=== PATIENT | female | born 2000 | race Caucasian/White ===

== ENCOUNTER 2023-12-05 20:19 | Outpatient (REF) | payer OTHER, SELFPAY ==
[2023-12-11 13:13] LABS: Age Gdln ACOG Testing Note (.); IGP, rfx Aptima HPV ASCU Note (.)
== END 2023-12-05 20:20 | disposition home or self-care (01) ==
LOC: LAB 20:19
PROVIDERS: PCP Physician Assistant; Visit Provider Physician Assistant
DX: Z01.419 Encounter for gynecological examination (general) (routine) without abnormal findings (principal)
CPT/HCPCS: 88175

== ENCOUNTER 2024-04-02 13:31 | Outpatient (OUT) | payer OTHER, SELFPAY ==
--- NOTE | 2024-04-02 13:33 | US_ITS ---
[address] [address] Patient Name: CURTIS MOREIRA MRN: [id number] date: 2000 Sex: F Assigned Patient Location: [facility] Current Patient Location: [facility] Accession/Order Number: [id number] Exam Date: 04/02/2024 13:35 Report Date: 04/02/2024 14:53 At the request of: CLAUDIO BROWN Procedure: US OB transvaginal EXAMINATION: US OB transvaginal HISTORY: MISSED MENSES COMPARISON: No relevant comparison available. FINDINGS: Transvaginal images Shankar intrauterine gestation Gestational sac: 3.78 cm, 9 weeks 0 days CRL: 2.60 cm, 9 weeks 3 days Yolk sac: 4.3 mm Heart rate: 170 beats minute Cervix: Closed, 4.6 cm The uterus is normal, anteverted, anteflexed The right ovary is not visualized The left ovary is normal Clinical age: 9 weeks 2 days Clinical JOSE ANGEL: 11/03/2024 Ultrasound age: 9 weeks 3 days Ultrasound JOSE ANGEL: 11/02/2024 US/US OB transvaginal IMPRESSION: Viable shankar intrauterine gestation measuring 9 weeks 3 days Electronically authenticated by: SYDNEE OBREGON Date: 04/02/2024 14:53
== END 2024-04-02 13:32 | disposition home or self-care (01) ==
LOC: NOMS 13:31
PROVIDERS: PCP Internal Medicine; Visit Provider Obstetrics & Gynecology
DX: Z34.91 Encounter for supervision of normal pregnancy, unspecified, first trimester (principal); Z3A.09 9 weeks gestation of pregnancy; N92.6 Irregular menstruation, unspecified
CPT/HCPCS: 76817

== ENCOUNTER 2024-04-07 15:54 | Outpatient (OUT) | payer OTHER, SELFPAY ==
--- OUTSIDE RECORDS SUMMARY | 2024-04-07 15:58 | XMS_ITS | CCD ---
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 Name Role Phone PHYSICIAN, DEFAULT Unavailable Unavailable PHYSICIAN, DEFAULT Unavailable Unavailable EBRAHEIM, ORION Unavailable Unavailable EBRAHEIM, ORION Unavailable Unavailable CELINA, ADAN Unavailable Unavailable CELINA, ADAN Unavailable Unavailable SKIE, JEOVANNY Unavailable Unavailable SKIE, JEOVANNY Unavailable Unavailable CELINA, ADAN Unavailable Unavailable CELINA, ADAN Unavailable Unavailable Unavailable Primary Care Provider Unavailabl e PROVIDER, UNKNOWN Attending Unavailable PROVIDER, UNKNOWN Admitting Unavailable PATIENT, SELF Referring Unavailable JORGITO, DR SNYDER Attending Unavailable JORGITO, DR SNYDER Admitting Unavailable JORGITO, DR SNYDER Consulting Unavailable FAWWAD, SELBY H Primary Care Unavailable JORGITO, DR SNYDER Attending Unavailable FAWWAD, [facility] Primary Care Unavailable JORGITO, DR SNYDER Admitting Unavailable JORGITO, DR SNYDER Admitting Unavailable FAWWAD, SELBY H Primary Care Unavailable JORGITO, DR SNYDER Consulting Unavailable JORGITO, DR SNYDER Attending Unavailable JORGITO, DR SNYDER Admitting Unavailable FAWAZD, [facility] Primary Care Unavailable DRESDEN, DR SYDNEE Stewart Consulting Unavailable JORGITO, DR SNYDER Attending Unavailable JORGITO, DR SNYDER Consulting Unavailable JORGITO, DR SNYDER Attending Unavailable JORGITO, DR SNYDER Admitting Unavailable JORGITO, DR SNYDER Consulting Unavailable JORGITO, DR SNYDER Primary Care Unavailable JORGITO, DR SNYDER Attending Unavailable JORGITO, DR SNYDER Admitting Unavailable FAWWAD, SELBY H Primary Care Unavailable DRESDEN, DR SYDNEE Stewart Consulting Unavailable JORGITO, DR SNYDER Consulting Unavailable FAWWAD, [facility] Primary Care Unavailable OJRGITO, DR SNYDER Consulting Unavailable JORGITO, DR SNYDER Attending Unavailable JORGITO, DR SNYDER Admitting Unavailable JORGITO, DR SNYDER Attending Unavailable JORGITO, DR SNYDER Admitting [facility]available [facility] Primary Care Unavailable JORGITO, DR SNYDER Consulting Unavailable JORGITO, DR SNYDER Attending Unavailable ANNAKILLIAN, [facility] Primary Care Unavailable JORGITO, DR SNYDER Admitting Unavailable JORGITO, DR SNYDER Consulting Unavailable ZIEBER, DR ANA ROSA Bhatia Consulting Unavailable JORGITO, DR SNYDER Attending Unavailable JORGITO, DR SNYDER Admitting Unavailable FAWAZD, [facility] Primary Care Unavailable JORGITO, DR SNYDER Consulting Unavailable GEMSOFIA WARD Consulting Unavailable JORGITO, DR SNYDER Procedure Practitioner Unavailab CHANDNI Rogers Attending Unavailable CHANDNI JORDAN Admitting Unavailable FAWWAD, SELBY H Primary Care Unavailable CHANDNI JORDAN Consulting Unavailable HAHN, CHRIS Attending Unavailable ROMI MATTHEWS Referring Unavailable HAHN, CHRIS Admitting Unavailable MOSNELIA, MAITHAM Consulting Unavailable DAO MONTANA Consulting Unavailable MAGED FERNANDEZ Consulting Unavailable NO PCP, NO PCP Primary Care Unavailable KEM GHOTRA Attending Unavailable NO PCP, NO PCP Primary Care Unavailable JUN MEDINA Attending Unavailable NO PCP, NO PCP Primary Care Unavailable JUAN ZUNIGA Attending Unavailable LORETO CARNEY Attending Unavailable Hannah SEE, [facility] Primary Care Provider [phone] Loreto Gee Unavailable Medications Current Medications Medication Drug Class(es) Dates Sig (Normalized) Sig (Original) MV & Min w/FA-DHA ( Gummies) 0.18-25 MG chewable tablet (1 source) Start: 04-02-2024 End: 04-02-2025 MV & Min w/FA-DHA ( Gummies) 0.18-25 MG chewable tablet Indications: Missed menses , , unspecified gestational age , Encounter for supervision of normal first in first trimester Chew 1 tablet Daily 30 tablet 04/02/2024 04/02/2025 Active Completed/Discontinued Medications Medication Drug Class(es) Dates Sig (Normalized) Sig (Original) Ethinyl Estradiol / Ferrous fumarate / Norethindrone (1 source) Estrogen Start: 11-22-2022 End: 04-02-2024 norethindrone-ethin yl estradiol (05/11) 1-20 MG-MCG tablet Indications: control counseling Take 1 tablet by mouth in the morning. 28 tablet 11 11/22/2022 04/02/2024 Discontinued (Other) Problems Active Problems Problem Classification Problem Date Documented Date Episodic/Chronic Biliary tract disease (3 sources) Calculus of bile duct without cholangitis or cholecystitis without obstruction; Translations: [Calculus of gallbladder and bile duct without cholecystitis without obstruction] Onset: 08-05-2022 Episodic Fever of unknown origin (1 source) Fever Onset: 11-10-2023 Episodic Fracture of upper limb (8 sources) Nondisplaced fracture of head of left radius, subsequent encounter for closed fracture with routine healing; Translations: [Displaced fracture of head of left radius, subsequent encounter for closed fracture with routine healing] Onset: 08-19-2017 Episodic Menstrual disorders (5 sources) Irregular menstruation, unspecified; Translations: [Missed period] Onset: 09-07-2021 Chronic OB-related trauma to perineum and vulva (1 source) First degree perineal laceration during delivery; Translations: [FIRST DEG PERINEAL LAC DUR DELIV] Onset: 04-06-2022 Episodic Other complications of ; puerperium affecting management of mother (1 source) Obesity complicating childbirth; Translations: [OBESITY COMPLICATING CHILDBIRTH] Onset: 04-06-2022 Chronic Other complications of (2 sources) Obesity complicating , third trimester; Translations: [OBESITY COMP THIRD TRI] Onset: 03-22-2022 Chronic Other complications of (4 sources) Maternal care for excessive growth, third trimester, not applicable or unspecified; Translations: [MAT CARE EXCSS FTL GRTH 3RD TRI UNS] Onset: 02-09-2022 Episodic Other non-traumatic joint disorders (1 source) Loose body in left elbow; Translations: [LOOSE BODY IN LEFT ELBOW] Onset: 08-19-2017 Chronic Other non-traumatic joint disorders (2 sources) Effusion, left elbow; Translations: [Pain in left wrist] Onset: 08-19-2017 Episodic Other nutritional; endocrine; and metabolic disorders (1 source) Obesity, unspecified; Translations: [OBESITY UNSPECIFIED] Onset: 04-06-2022 Chronic Other and delivery including normal (9 sources) Encounter for routine follow-up; Translations: [Single live ] Onset: 09-13-2021 Episodic Other screening for suspected conditions (not mental disorders or infectious disease) (17 sources) Encounter for screening for Streptococcus B; Translations: [Encounter for screening for diabetes mellitus] Onset: 09-07-2021 Episodic Other upper respiratory infections (2 sources) Acute upper respiratory infection, unspecified; Translations: [Streptococcal pharyngitis] Onset: 08-03-2023 Episodic Residual codes; unclassified (1 source) 39 weeks gestation of ; Translations: [39 WEEKS GESTATION OF ] Onset: 04-06-2022 Episodic Residual codes; unclassified (1 source) 33 weeks gestation of ; Translations: [33 WEEKS GESTATION OF ] Onset: 02-14-2022 Episodic Unclassified (2 sources) Unknown / UNK(Unknown) Onset: 08-19-2017 Unclassified (1 source) CONTACT W/AND (SUSP) EXPOS COVID-19; Translations: [CONTACT W/AND (SUSP) EXPOS COVID-19] Onset: 04-06-2022 Unclassified (1 source) Generalized Body Aches Onset: 11-10-2023 Unclassified (1 source) Cold Like Symptoms Onset: 08-01-2023 Unclassified (1 source) Fever, Ear Ache, Sore Throat Onset: 08-01-2023 Past or Other Problems Problem Classification Problem Date Documented Date Episodic/Chronic Abdominal pain (4 sources) Unspecified abdominal pain; Translations: [UNSPECIFIED ABDOMINAL PAIN] Onset: 07-24-2021 Episodic Immunizations and screening for infectious disease (2 sources) Encounter for screening for infections with a predominantly sexual mode of transmission; Translations: [Contact with and (suspected) exposure to infections with a predominantly sexual mode of transmission] Onset: 09-13-2021 Episodic Other complications of (1 source) Other specified related conditions, unspecified trimester; Translations: [OTH SPEC PREG RELATED COND UNS TRI] Onset: 08-09-2021 Episodic Other female genital disorders (4 sources) Other specified noninflammatory disorders of vagina; Translations: [OTH SPEC NONINFLAMMATORY D/O VAGINA] Onset: 10-31-2021 Episodic Other upper respiratory disease (1 source) Pain in throat Onset: 08-03-2023 Episodic Residual codes; unclassified (1 source) Weeks of gestation of not specified; Translations: [WEEKS GESTATION NOT SPEC] Onset: 08-09-2021 Episodic Viral infection (1 source) Viral infection, unspecified; Translations: [Viral infection, unspecified] Onset: 08-01-2023 Episodic Results Test Name Value Interpretation Reference Range Facility HCG ( test) Ql (U)o n 04-03-2024 Interpretation and review of laboratory results Abnormal [facility] Preg Test, Ur Positive Negative [facility]inal[facility] macro (dipstick) panel (U)on 04-03-2024 Bilirubin, UA Negative Negative - 4(70) +++ mg/dL [facility] Blood, UA Negative Negative - 50 Nishant/mcL [facility] Clarity, UA Clear [facility] re Color, UA Yellow [facility] e Glucose, UA Negative Negative - 1999(110) ++++ mg/dL [facility] Interpretation and review of laboratory results Normal [facility] Ketones, UA Negative Negative - 160(16) ++++ mg/dL [facility] Leukocytes, UA Negative Negative - 500+++ Michael/mcL [facility] Nitrite, UA Negative Negative - Positive [facility] pH, UA 6.5 5 - 9 [facility] e Protein, UA Negative Negative - 1999(20) ++++ mg/dL [facility] Spec Grav, UA 1.02 1 - 1.03 [facility] Urobilinogen, UA 1.0 0.2 - 12 mg/dL [facility] SARS/FLU A+B/RSV by NAAT/Mol ecularon 11-11-2023 SARS/FLU A+B/RSV by NAAT/Molecular FLU A PCR Negative (qualifier value) FLU B PCR Negative (qualifier value) RSV by PCR Negative (qualifier value) SARS CoV 2 Not detected (qualifier value) NOTE The Xpert Xpress SARS-CoV-2/Flu/RSV Plus test is a rapid, multiplexed real-time RT-PCR test intended for the simultaneous qualitative detection and differentiation of SARS-CoV-2, influenza A, influenza B and respiratory syncytial virus (RSV) viral RNA from individuals suspected of respiratory viral infection consistent with COVID-19 by their healthcare provider. This test has not been validated in asymptomatic patients. The Xpert Xpress SARS-CoV-2 test is intended for use by qualified and trained operators who are performing tests using either GeneXpert DX or GeneXpert Quantifind systems and is limited to laboratories that meet the CLIA requirements to perform high and moderate complexity tests. The Xpert Xpress SARS-CoV-2/Flu/RSV Plus is only for use under the Food and Drug Administration's Emergency Use Authorization. Results are for the simultaneous detection and differentiation of SARS-CoV-2, influenza A, influenza B and RSV nucleic acids in clinical specimens. SARS-CoV-2, influenza A, influenza B and RSV RNA identified by this test are generally detectable in upper respiratory samples during the acute phase of infection. Positive results are indicative of the presence of the identified virus, but do not rule out bacterial infection or co-infection with other pathogens not detected by this test. Clinical correlation with patient history and other diagnostic information is necessary to determine patient infection status. The agent detected may not be the definite cause of disease. Negative results do not preclude SARS-CoV-2, influenza A, influenza B and RSV infection and should not be used as the sole basis for treatment or other patient management decisions. Negative results must be combined with clinical observations, patient history and epidemiological information. An Invalid result may occur with specimen-associated inhibition unable to be resolved with specimen repeat. Fact Sheet for Healthcare Providers: https://www.fda.gov/m edia/934317/download Fact Sheet for Patients: https://www.fda.gov/m edia/661070/download Normal [facility] Comment on above: Performed By: #### C OVFLR #### [facility] ([id number]) [address] [place] [address], [place] [address] STREP PCR THROATon S. pyogenes DNA CLIVE+probe Nom (Unsp spec) STREP PCR THROAT Negative (qualifier value) Streptococcus Group A NOT detected by nucleic acid amplification. Normal [facility] Comment on above: Performed By: #### 4 [id number] #### [facility] ([id number]) [address], [address] [place] [address] RAPID STREP SCR NURSINGon S. pyogenes Ag EIA Ql (Throat) Positive Abnormal NEG [facility] Comment on above: Performed By: #### 6 [id number] #### [facility] ([id number]) [address] [facility] [address] [facility] [place] [address] SARS/FLU A+B/RSV by NAAT/Mol ecularon 08-01-2023 SARS/FLU A+B/RSV by NAAT/Molecular FLU A PCR Negative (qualifier value) FLU B PCR Negative (qualifier value) RSV by PCR Negative (qualifier value) SARS CoV 2 Not detected (qualifier value) NOTE The Xpert Xpress SARS-CoV-2/Flu/RSV Plus test is a rapid, multiplexed real-time RT-PCR test intended for the simultaneous qualitative detection and differentiation of SARS-CoV-2, influenza A, influenza B and respiratory syncytial virus (RSV) viral RNA from individuals suspected of respiratory viral infection consistent with COVID-19 by their healthcare provider. This test has not been validated in asymptomatic patients. The Xpert Xpress SARS-CoV-2 test is intended for use by qualified and trained operators who are performing tests using either [employer] DX or [employer] systems and is limited to laboratories that meet the CLIA requirements to perform high and moderate complexity tests. The Xpert Xpress SARS-CoV-2/Flu/RSV Plus is only for use under the Food and Drug Administration's Emergency Use Authorization. Results are for the simultaneous detection and differentiation of SARS-CoV-2, influenza A, influenza B and RSV nucleic acids in clinical specimens. SARS-CoV-2, influenza A, influenza B and RSV RNA identified by this test are generally detectable in upper respiratory samples during the acute phase of infection. Positive results are indicative of the presence of the identified virus, but do not rule out bacterial infection or co-infection with other pathogens not detected by this test. Clinical correlation with patient history and other diagnostic information is necessary to determine patient infection status. The agent detected may not be the definite cause of disease. Negative results do not preclude SARS-CoV-2, influenza A, influenza B and RSV infection and should not be used as the sole basis for treatment or other patient management decisions. Negative results must be combined with clinical observations, patient history and epidemiological information. An Invalid result may occur with specimen-associated inhibition unable to be resolved with specimen repeat. Fact Sheet for Healthcare Providers: https://www.fda.gov/m edia/571385/download Fact Sheet for Patients: https://www.fda.gov/m edia/033537/download Normal [facility] Comment on above: Performed By: #### C OVFLR #### [facility] ([id number]) [address] [facility] [address] [facility], [place] [address] Basic Metab w/rfx MGon 08-08 Anion gap [Moles/Vol] 11 mmol/L Normal 9-17 [facility] Comment on above: Performed By: #### L IP, BMPX, LIVP, CBC #### [facility] [email or web address] [address] [place] [phone] Sand Filler: Flako Braun MD Calcium [Mass/Vol] 9.0 mg/dL Normal 8.6-10.4 [facility] Comment on above: Performed By: #### L IP, BMPX, LIVP, CBC #### [facility] [email or web address] [address] [place] [phone] Sand Filler: Flako Braun MD Chloride [Moles/Vol] 104 mmol/L Normal 98-107 [facility] Comment on above: Performed By: #### L IP, BMPX, LIVP, CBC #### [facility] [address] [place] [address] Sand Filler: Flako Braun MD CO2 [Moles/Vol] 22 mmol/L Normal 20-31 [facility] Comment on above: Performed By: #### L IP, BMPX, LIVP, CBC #### [facility] [address] [place] [address] Sand Filler: Flako Braun MD Creatinine [Mass/Vol] 0.56 mg/dL Normal 0.50-0.90 [facility] Comment on above: Performed By: #### L IP, BMPX, LIVP, CBC #### [facility] [address] [place] [address] Sand Filler: Flako Braun MD GFR/1.73 sq M.predicted among non-blacks MDRD (S/P/Bld) [Vol rate/Area] mL/min/{1.73_m2} Normal >60 [facility] Comment on above: Result Comment: These results are not intended for use in patients <18 years of age. eGFR results are calculated without a race factor using the 2020 CKD-EPI equation. Careful clinical correlation is recommended, particularly when comparing to results calculated using previous equations. The CKD-EPI equation is less accurate in patients with extremes of muscle mass, extra-renal metabolism of creatine, excessive creatine ingestion, or following therapy that affects renal tubular secretion. Performed By: #### L IP, BMPX, LIVP, CBC #### [facility] [address] [place] [address] [phone] Sand Filler: Flako Braun MD Glucose [Mass/Vol] 81 mg/dL Normal 70-99 [facility] Comment on above: Performed By: #### L IP, BMPX, LIVP, CBC #### [facility] [address] [place] [address] Sand Filler: Flako Braun MD Potassium [Moles/Vol] 4.0 mmol/L Normal 3.7-5.3 [facility] Comment on above: Performed By: #### L IP, BMPX, LIVP, CBC #### [facility] [address] [place] [address] Sand Filler: Flako Braun MD Sodium [Moles/Vol] 137 mmol/L Normal 135-144 [facility] Comment on above: Performed By: #### L IP, BMPX, LIVP, CBC #### [facility] [address] [place] [address] Sand Filler: Flako Braun MD Urea nitrogen [Mass/Vol] 7 mg/dL Normal 6-20 [facility] Comment on above: Performed By: #### L IP, BMPX, LIVP, CBC #### [facility] [address] [place] [address] Sand Filler: Flako Braun MD CBCon 08-08-2022 Erythrocyte distribution width (RBC) [Ratio] 16.2 % High 11.8-14.4 [facility] Comment on above: Performed By: #### L IP, BMPX, LIVP, CBC #### [facility] [email or web address] [address] [place] [address] Sand Filler: Flako Braun MD Hematocrit (Bld) [Volume fraction] 34.4 % Low 36.3-47.1 [facility] Comment on above: Performed By: #### L IP, BMPX, LIVP, CBC #### [facility] [email or web address] [address] [place] [address] Sand Filler: Flako Braun MD Hemoglobin (Bld) [Mass/Vol] 10.6 g/dL Low 11.9-15.1 [facility] Comment on above: Performed By: #### L IP, BMPX, LIVP, CBC #### [facility] [email or web address] [address] [place] [address] Sand Filler: Flako Braun MD MCH (RBC) [Entitic mass] 26.2 pg Normal 25.2-33.5 [facility] Comment on above: Performed By: #### L IP, BMPX, LIVP, CBC #### [facility] [email or web address] [address] [place] [address] Sand Filler: Flako Braun MD MCHC (RBC) [Mass/Vol] 30.8 g/dL Normal 28.4-34.8 [facility] Comment on above: Performed By: #### L IP, BMPX, LIVP, CBC #### [facility] [email or web address] [address] [place] [address] Sand Filler: Flako Braun MD MCV (RBC) [Entitic vol] 85.1 fL Normal 82.6-102.9 [facility] Comment on above: Performed By: #### L IP, BMPX, LIVP, CBC #### [address] [address] Sand Filler: Flako Braun MD NRBC Automated 0.0 per 100 WBC Normal 0.0 [facility] Comment on above: Performed By: #### L IP, BMPX, LIVP, CBC #### [address] [address] Sand Filler: Flako Braun MD Platelet mean volume (Bld) [Entitic vol] 11.4 fL Normal 8.1-13.5 [facility] Comment on above: Performed By: #### L IP, BMPX, LIVP, CBC #### [address] [address] Sand Filler: Flako Braun MD Platelets (Bld) [#/Vol] 218 10*3/uL Normal 138-453 [facility] Comment on above: Performed By: #### L IP, BMPX, LIVP, CBC #### [address] [address] Sand Filler: Flako Braun MD RBC (Bld) [#/Vol] 4.04 10*6/uL Normal 3.95-5.11 [facility] Comment on above: Performed By: #### L IP, BMPX, LIVP, CBC #### [address] [address] Sand Filler: Flako Braun MD WBC (Bld) [#/Vol] 9.8 10*3/uL Normal 4.5-13.5 [facility] Comment on above: Performed By: #### L IP, BMPX, LIVP, CBC #### [address] [address] Sand Filler: Flako Braun MD Lipaseon 08-08-2022 Lipase [Catalytic activity/Vol] 20 U/L Normal 13-60 [facility] Comment on above: Performed By: #### L IP, BMPX, LIVP, CBC #### [facility] [address] [place] [address] Sand Filler: Flako Braun MD Liver Profileon 08-08-2022 Albumin [Mass/Vol] 3.5 g/dL Normal 3.5-5.2 [facility] Comment on above: Performed By: #### L IP, BMPX, LIVP, CBC #### [facility] [email or web address] [address] [place] [address] Sand Filler: Flako Braun MD Albumin/Glob Ratio 1.4 Normal 1.0-2.5 [facility] Comment on above: Performed By: #### L IP, BMPX, LIVP, CBC #### [facility] [address] [place] [address] Sand Filler: Flako Braun MD Alkaline Phos 282 U/L High 35-104 [facility] Comment on above: Performed By: #### L IP, BMPX, LIVP, CBC #### [facility] [email or web address] [address] [place] [address] Sand Filler: Flako Braun MD ALT [Catalytic activity/Vol] 291 U/L High 5-33 [facility] Comment on above: Performed By: #### L IP, BMPX, LIVP, CBC #### [facility] [email or web address] [address] [place] [phone] Sand Filler: Flako Braun MD AST [Catalytic activity/Vol] 120 U/L High <32 [facility] Comment on above: Performed By: #### L IP, BMPX, LIVP, CBC #### [facility] [email or web address] [address] [place] [address] Sand Filler: Flako Braun MD Bilirubin [Mass/Vol] 1.4 mg/dL High 0.3-1.2 [facility] Comment on above: Performed By: #### L IP, BMPX, LIVP, CBC #### [facility] [address] [place] [address] [phone] Sand Filler: Flako Braun MD Bilirubin, Indirect 0.6 mg/dL Normal 0.0-1.0 [facility] Comment on above: Performed By: #### L IP, BMPX, LIVP, CBC #### [facility] [address] [place] [address] Sand Filler: Flako Braun MD Bilirubin.indirect [Mass/Vol] 0.8 mg/dL High <0.3 [facility] Comment on above: Performed By: #### L IP, BMPX, LIVP, CBC #### [facility] [address] [place] [address] Sand Filler: Flako Braun MD Protein [Mass/Vol] 6.0 g/dL Low 6.4-8.3 [facility] Comment on above: Performed By: #### L IP, BMPX, LIVP, CBC #### [facility] [address] [place] [address] Sand Filler: Flako Braun MD Basic Metab w/rfx MGon 08-07 Creatinine [Mass/Vol] 0.42 mg/dL Low 0.50-0.90 [facility] Comment on above: Result Comment: ICTE VERA SPECIMEN Performed By: #### L IP, BMPX, LIVP, CBC #### [facility] [address] [place] [address] [phone] Sand Filler: Flako Braun MD GFR/1.73 sq M.predicted among non-blacks MDRD (S/P/Bld) [Vol rate/Area] mL/min/{1.73_m2} Normal >60 [facility] Comment on above: Result Comment: These results are not intended for use in patients <18 years of age. eGFR results are calculated without a race factor using the 2020 CKD-EPI equation. Careful clinical correlation is recommended, particularly when comparing to results calculated using previous equations. The CKD-EPI equation is less accurate in patients with extremes of muscle mass, extra-renal metabolism of creatine, excessive creatine ingestion, or following therapy that affects renal tubular secretion. Performed By: #### L IP, BMPX, LIVP, CBC #### [facility] [email or web address] [address] [place] [address] Sand Filler: Flako Braun MD Anion gap [Moles/Vol] 11 mmol/L Normal 9-17 [facility] Comment on above: Performed By: #### L IP, BMPX, LIVP, CBC #### [facility] [email or web address] [address] [place] [address] Sand Filler: Flako Braun MD Calcium [Mass/Vol] 8.8 mg/dL Normal 8.6-10.4 [facility] Comment on above: Performed By: #### L IP, BMPX, LIVP, CBC #### [facility] [email or web address] [address] [place] [address] Sand Filler: Flako Braun MD Chloride [Moles/Vol] 102 mmol/L Normal 98-107 [facility] Comment on above: Performed By: #### L IP, BMPX, LIVP, CBC #### [facility] [email or web address] [address] [place] [address] Sand Filler: Flako Braun MD CO2 [Moles/Vol] 22 mmol/L Normal 20-31 [facility] Comment on above: Performed By: #### L IP, BMPX, LIVP, CBC #### [facility] [email or web address] [address] [place] [address] Sand Filler: Flako Braun MD Glucose [Mass/Vol] 89 mg/dL Normal 70-99 [facility] Comment on above: Performed By: #### L IP, BMPX, LIVP, CBC #### [facility] [address] [place] [address] Sand Filler: Flako Braun MD Potassium [Moles/Vol] 4.1 mmol/L Normal 3.7-5.3 [facility] Comment on above: Performed By: #### L IP, BMPX, LIVP, CBC #### [facility] [address] [place] [address] Sand Filler: Flako Braun MD Sodium [Moles/Vol] 135 mmol/L Normal 135-144 [facility] Comment on above: Performed By: #### L IP, BMPX, LIVP, CBC #### [facility] [address] [place] [address] Sand Filler: Flako Braun MD Urea nitrogen [Mass/Vol] 6 mg/dL Normal 6-20 [facility] Comment on above: Performed By: #### L IP, BMPX, LIVP, CBC #### [facility] [address] [place] [address] Sand Filler: Flako Braun MD [facility] Erythrocyte distribution width (RBC) [Ratio] 15.9 % High 11.8-14.4 [facility] Comment on above: Performed By: #### L IP, BMPX, LIVP, CBC #### [facility] [address] [place] [address] Sand Filler: Flako Braun MD Hematocrit (Bld) [Volume fraction] 36.7 % Normal 36.3-47.1 [facility] Comment on above: Performed By: #### L IP, BMPX, LIVP, CBC #### [facility] [address] [place] [address] Sand Filler: Flako Braun MD Hemoglobin (Bld) [Mass/Vol] 11.2 g/dL Low 11.9-15.1 [facility] Comment on above: Performed By: #### L IP, BMPX, LIVP, CBC #### [address] [address] Sand Filler: Flako Braun MD MCH (RBC) [Entitic mass] 25.5 pg Normal 25.2-33.5 [facility] Comment on above: Performed By: #### L IP, BMPX, LIVP, CBC #### [address] [address] Sand Filler: Flako Braun MD MCHC (RBC) [Mass/Vol] 30.5 g/dL Normal 28.4-34.8 [facility] Comment on above: Performed By: #### L IP, BMPX, LIVP, CBC #### [address] [address] Sand Filler: Flako Braun MD MCV (RBC) [Entitic vol] 83.6 fL Normal 82.6-102.9 [facility] Comment on above: Performed By: #### L IP, BMPX, LIVP, CBC #### [address] [address] Sand Filler: Flako Braun MD NRBC Automated 0.0 per 100 WBC Normal 0.0 [facility] Comment on above: Performed By: #### L IP, BMPX, LIVP, CBC #### [address] [address] Sand Filler: Flako Braun MD Platelet mean volume (Bld) [Entitic vol] 11.2 fL Normal 8.1-13.5 [facility] Comment on above: Performed By: #### L IP, BMPX, LIVP, CBC #### [address] [address] Sand Filler: Flako Braun MD Platelets (Bld) [#/Vol] 252 10*3/uL Normal 138-453 [facility] Comment on above: Performed By: #### L IP, BMPX, LIVP, CBC #### [address] [address] Sand Filler: Flako Braun MD RBC (Bld) [#/Vol] 4.39 10*6/uL Normal 3.95-5.11 [facility] Comment on above: Performed By: #### L IP, BMPX, LIVP, CBC #### [address] [address] Sand Filler: Flako Braun MD WBC (Bld) [#/Vol] 13.4 10*3/uL Normal 4.5-13.5 [facility] Comment on above: Performed By: #### L IP, BMPX, LIVP, CBC #### [address] [address] Sand Filler: Flako Braun MD FLUORO FOR SURGICAL PROCEDUR ESon 08-07-2022 FLUORO FOR SURGICAL PROCEDURES Radiology exam is complete. No Radiologist dictation. Please follow up with ordering provider. Final result Normal [facility] Lipaseon 08-07-2022 Lipase [Catalytic activity/Vol] 11 U/L Low 13-60 [facility] Comment on above: Performed By: #### L IP, BMPX, LIVP, CBC #### [address] [address] Sand Filler: Flako Braun MD Liver Profileon 08-07-2022 Albumin [Mass/Vol] 3.6 g/dL Normal 3.5-5.2 [facility] Comment on above: Performed By: #### L IP, BMPX, LIVP, CBC #### [address] [address] Sand Filler: Flako Braun MD Albumin/Glob Ratio 1.4 Normal 1.0-2.5 [facility] Comment on above: Performed By: #### L IP, BMPX, LIVP, CBC #### [facility] [address] [place] [address] Sand Filler: Flako Braun MD Alkaline Phos 307 U/L High 35-104 [facility] Comment on above: Performed By: #### L IP, BMPX, LIVP, CBC #### [facility] [address] [place] [address] Sand Filler: Flako Braun MD ALT [Catalytic activity/Vol] 360 U/L High 5-33 [facility] Comment on above: Performed By: #### L IP, BMPX, LIVP, CBC #### [facility] [address] [place] [address] Sand Filler: Flako Braun MD AST [Catalytic activity/Vol] 200 U/L High <32 [facility] Comment on above: Performed By: #### L IP, BMPX, LIVP, CBC #### [facility] [email or web address] [address] [place] [address] Sand Filler: Flako Braun MD Bilirubin [Mass/Vol] 4.2 mg/dL High 0.3-1.2 [facility] Comment on above: Performed By: #### L IP, BMPX, LIVP, CBC #### [facility] [email or web address] [address] [place] [address] Sand Filler: Falko Braun MD Bilirubin, Indirect 0.5 mg/dL Normal 0.0-1.0 [facility] Comment on above: Performed By: #### L IP, BMPX, LIVP, CBC #### [facility] [address] [place] [address] Sand Filler: Flako Braun MD Bilirubin.indirect [Mass/Vol] 3.7 mg/dL High <0.3 [facility] Comment on above: Performed By: #### L IP, BMPX, LIVP, CBC #### [facility] [address] [place] [address] Sand Filler: Flako Braun MD Protein [Mass/Vol] 6.2 g/dL Low 6.4-8.3 [facility] Comment on above: Performed By: #### L IP, BMPX, LIVP, CBC #### [facility] [address] [place] [address] Sand Filler: Flako Braun MD Basic Metab w/rfx MGon 08-06 Anion gap [Moles/Vol] 12 mmol/L Normal -17 [facility] Comment on above: Performed By: #### L IP, BMPX, HCG, SOLEDAD, LIVP, MG ####[facility] [address] [place] [address] Lab Director: Flako Braun MD Calcium [Mass/Vol] 8.7 mg/dL Normal 8.6-10.4 [facility] Comment on above: Performed By: #### L IP, BMPX, HCG, SOLEDAD, LIVP, MG ####[facility] [address] [place] [address] Lab Director: Flako Braun MD Chloride [Moles/Vol] 105 mmol/L Normal 98-107 [facility] Comment on above: Performed By: #### L IP, BMPX, HCG, SOLEDAD, LIVP, MG ####[facility] [address] [place] [address] Lab Director: Flako Braun MD CO2 [Moles/Vol] 19 mmol/L Low 20-31 [facility] Comment on above: Performed By: #### L IP, BMPX, HCG, SOLEDAD, LIVP, MG ####[facility] [address] [place] [address] Lab Director: Flako Braun MD Creatinine [Mass/Vol] 0.34 mg/dL Low 0.50-0.90 [facility] Comment on above: Result Comment: ICTE VERA SPECIMEN Performed By: #### L IP, BMPX, HCG, SOLEDAD, LIVP, MG ####[facility] [address] [place] [address] [phone] Lab Director: Flako Braun MD GFR/1.73 sq M.predicted among non-blacks MDRD (S/P/Bld) [Vol rate/Area] mL/min/{1.73_m2} Normal >60 [facility] Comment on above: Result Comment: These results are not intended for use in patients <18 years of age. eGFR results are calculated without a race factor using the 2020 CKD-EPI equation. Careful clinical correlation is recommended, particularly when comparing to results calculated using previous equations. The CKD-EPI equation is less accurate in patients with extremes of muscle mass, extra-renal metabolism of creatine, excessive creatine ingestion, or following therapy that affects renal tubular secretion. Performed By: #### L IP, BMPX, HCG, SOLEDAD, LIVP, MG ####[facility] [address] [place] [address] Lab Director: Flako Braun MD Glucose [Mass/Vol] 84 mg/dL Normal 70-99 [facility] Comment on above: Performed By: #### L IP, BMPX, HCG, SOLEDAD, LIVP, MG ####[facility] [address] [place] [address] [phone] Lab Director: Flako Braun MD Potassium [Moles/Vol] 4.4 mmol/L Normal 3.7-5.3 [facility] Comment on above: Result Comment: SPEC IMEN SLIGHTLY HEMOLYZED, RESULTS MAY BE ADVERSELY AFFECTED. Performed By: #### L IP, BMPX, HCG, SOLEDAD, LIVP, MG ####[facility] [address] [place] [address] [phone] Lab Director: Flako Braun MD Sodium [Moles/Vol] 136 mmol/L Normal 135-144 [facility] Comment on above: Performed By: #### L IP, BMPX, HCG, SOLEDAD, LIVP, MG ####[facility] [address] [place] [address] Lab Director: Flako Braun MD Urea nitrogen [Mass/Vol] 6 mg/dL Normal 6-20 [facility] Comment on above: Performed By: #### L IP, BMPX, HCG, SOLEDAD, LIVP, MG ####[facility] [address] [place] [address] Lab Director: Flako Braun MD CBCon 08-06-2022 Erythrocyte distribution width (RBC) [Ratio] 15.9 % High 11.8-14.4 [facility] Comment on above: Performed By: #### C ADELA PT, IOCAL #### [facility] [email or web address] [address] [place] [address] Sand Filler: Flako Braun MD Hematocrit (Bld) [Volume fraction] 37.3 % Normal 36.3-47.1 [facility] Comment on above: Performed By: #### C BC, PT, IOCAL #### [facility] [address] [place] [address] Sand Filler: Flako Braun MD Hemoglobin (Bld) [Mass/Vol] 10.9 g/dL Low 11.9-15.1 [facility] Comment on above: Performed By: #### C BC, PT, IOCAL #### [facility] [address] [place] [address] Sand Filler: Flako Braun MD MCH (RBC) [Entitic mass] 25.8 pg Normal 25.2-33.5 [facility] Comment on above: Performed By: #### C BC, PT, IOCAL #### [facility] [address] [place] [address] Sand Filler: Flako Braun MD MCHC (RBC) [Mass/Vol] 29.2 g/dL Normal 28.4-34.8 [facility] Comment on above: Performed By: #### C BC, PT, IOCAL #### [facility] [address] [place] [address] Sand Filler: Flako Braun MD MCV (RBC) [Entitic vol] 88.2 fL Normal 82.6-102.9 [facility] Comment on above: Performed By: #### C BC, PT, IOCAL #### [facility] [email or web address] [address] [place] [address] Sand Filler: Flako Braun MD NRBC Automated 0.0 per 100 WBC Normal 0.0 [facility] Comment on above: Performed By: #### C BC, PT, IOCAL #### [facility] [email or web address] [address] [place] [address] Sand Filler: Flako Braun MD Platelet mean volume (Bld) [Entitic vol] 11.3 fL Normal 8.1-13.5 [facility] Comment on above: Performed By: #### C BC, PT, IOCAL #### [facility] [email or web address] [address] [place] [address] Sand Filler: Flako Braun MD Platelets (Bld) [#/Vol] 233 10*3/uL Normal 138-453 [facility] Comment on above: Performed By: #### C BC, PT, IOCAL #### [facility] [email or web address] [address] [place] [address] Sand Filler: Flako Braun MD RBC (Bld) [#/Vol] 4.23 10*6/uL Normal 3.95-5.11 [facility] Comment on above: Performed By: #### C BC, PT, IOCAL #### [facility] [address] [place] [address] Sand Filler: Flako Braun MD WBC (Bld) [#/Vol] 6.7 10*3/uL Normal 4.5-13.5 [facility] Comment on above: Performed By: #### C BC, PT, IOCAL #### [facility] [address] [place] [address] Sand Filler: Flako Braun MD Calcium, Ionicon 08-06-2022 Calcium [Moles/Vol] 1.20 mmol/L Normal 1.13-1.33 [facility] Comment on above: Performed By: #### C BC, PT, IOCAL #### [facility] [address] [place] [address] Sand Filler: Flako Braun MD HCG Screen, Bloodon 08-07-19 HCG Screen, Blood Negative Normal [facility] Comment on above: Result Comment: Spec imens with hCG levels near the threshold of the test (25 mIU/mL) may give a negative or indeterminate result. In such cases, another test should be performed with a new specimen in 48-72 hours. If early is suspected clinically in this setting, correlation with quantitative serum b-hCG level is suggested. [facility] has confirmed the use of plasma for this test. This has not been cleared or approved by the U.S. Food and Drug Administration. The FDA has determined that such clearance is not necessary. Performed By: #### L IP, BMPX, HCG, SOLEDAD, LIVP, MG ####[facility] [address] [place] [address] Lab Director: Flako Braun MD Lipaseon 08-06-2022 Lipase [Catalytic activity/Vol] 25 U/L Normal 13-60 [facility] Comment on above: Performed By: #### L IP, BMPX, HCG, SOLEDAD, LIVP, MG ####[facility] [address] [place], [place] [phone] Lab Director: Flako Braun MD Liver Profileon 08-06-2022 Albumin [Mass/Vol] 3.5 g/dL Normal 3.5-5.2 [facility] Comment on above: Performed By: #### L IP, BMPX, HCG, SOLEDAD, LIVP, MG ####[facility] [address] [place] [address] Lab Director: Flako Braun MD Albumin/Glob Ratio 1.3 Normal 1.0-2.5 [facility] Comment on above: Performed By: #### L IP, BMPX, HCG, SOLEDAD, LIVP, MG ####[facility] [address] [place], [place] [phone] Director: Flako Braun MD Alkaline Phos 288 U/L High 35-104 [facility] Comment on above: Performed By: #### L IP, BMPX, HCG, SOLEDAD, LIVP, MG ####[facility] [address] [place], [place] [phone] Director: Flako Braun MD ALT [Catalytic activity/Vol] 476 U/L High 5-33 [facility] Comment on above: Performed By: #### L IP, BMPX, HCG, SOLEDAD, LIVP, MG ####[facility] [address] [place] [address] Lab Director: Flako Braun MD AST [Catalytic activity/Vol] 373 U/L High <32 [facility] Comment on above: Performed By: #### L IP, BMPX, HCG, SOLEDAD, LIVP, MG ####[facility] [address] [place], [place] [phone] Director: Flako Braun MD Bilirubin [Mass/Vol] 4.3 mg/dL High 0.3-1.2 [facility] Comment on above: Performed By: #### L IP, BMPX, HCG, SOLEDAD, LIVP, MG ####[facility] [address] [place], [place] [phone] Director: Flako Braun MD Bilirubin, Indirect 1.0 mg/dL Normal 0.0-1.0 [facility] Comment on above: Performed By: #### L IP, BMPX, HCG, SOLEDAD, LIVP, MG ####[facility] [address] [place], [place] [id number] Lab Director: Flako Braun MD Bilirubin.indirect [Mass/Vol] 3.3 mg/dL High <0.3 [facility] Comment on above: Performed By: #### L IP, BMPX, HCG, SOLEDAD, LIVP, MG ####[facility] [address] [place] [address] lab Director: Flako Braun MD Protein [Mass/Vol] 6.2 g/dL Low 6.4-8.3 [facility] Comment on above: Performed By: #### L IP, BMPX, HCG, SOLEDAD, LIVP, MG ####[facility] [address] [place] [address] lab Director: Flako Braun MD MRI ABDOMEN WO CONTRAST MRCP on 08-06-2022 MRI ABDOMEN WO CONTRAST MRCP EXAMINATION: MRI OF THE ABDOMEN WITHOUT CONTRAST AND MRCP 08/06/2022 10:10 am TECHNIQUE: Multiplanar multisequence MRI of the abdomen was performed without the administration of intravenous contrast. After initial T2 axial and coronal images, thick slab, thin slab and 3D coronal MRCP sequences were obtained without the administration of intravenous contrast. MIP images are provided for review. COMPARISON: 08/06/2022 ultrasound HISTORY: ORDERING SYSTEM PROVIDED HISTORY: abnormal LFT- r/o CBD stone TECHNOLOGIST PROVIDED HISTORY: abnormal LFT- r/o CBD stone What is the sedation requirement?->None Reason for Exam: abnormal LFT- r/o CBD stone FINDINGS: MRCP limited due to patient motion on acquisition series. Gallbladder: Multiple stones in the lumen of the gallbladder. There is diffuse gallbladder mucosal thickening and a small amount of pericholecystic fluid. Bile Ducts: The intrahepatic biliary ducts are normal. Extrahepatic biliary ducts are also normal with no dilation no obvious filling defects allowing for motion artifact. Pancreatic Duct: Normal. Other: Mild hepatic steatosis. IMPRESSION: 1. Cholelithiasis with mucosal thickening and pericholecystic fluid. Correlate for any potential symptoms of acute cholecystitis. 2. No biliary dilatation. 3. Hepatic steatosis. Interpreted by: Ralf Mendez IV, MD Signed by: Ralf Mendez IV, MD 08/06/22 Final result Normal [facility] Magnesiumon 08-06-2022 Magnesium [Mass/Vol] 1.8 mg/dL Normal 1.6-2.6 [facility] Comment on above: Performed By: #### L IP, BMPX, HCG, SOLEDAD, LIVP, MG ####[facility] [address] [place] [address] Lab Director: Flako Braun MD PTon 08-06-2022 INR Coag (PPP) [Relative time] 1.7 {INR} Normal [facility] Comment on above: Result Comment: Therapeutic Range: Moderate Anticoagulant Intensity: INR = 2.0-3.0 High Anticoagulant Intensity: INR = 2.5-3.5 Performed By: #### C BC, PT, IOCAL #### [facility] [address] [place] [address] Sand Filler: Flako Braun MD PT Coag (PPP) [Time] 20.1 s High 11.7-14.9 [facility] Comment on above: Performed By: #### C BC, PT, IOCAL #### [facility] [address] [place] [address] Sand Filler: Flako Braun MD Phosphorus, Inorg.on 023 Phosphorus, Inorg. 4.2 mg/dL Normal 2.6-4.5 [facility] Comment on above: Performed By: #### L IP, BMPX, HCG, SOLEDAD, LIVP, MG ####[facility] [address] [place] [address] Lab Director: Flako Braun MD Surgical Pathologyon 023 Surgical Pathology (NOTE) -- Diagnosis -- Gallbladder: - Cholelithiasis and mild chronic inflammation. Miguel De La Rosa M.D. Electronically Signed Out rdd/08/08/2022 Clinical Information Pre-op Diagnosis: CALCULUS OF GALLBLADDER AND BILE DUCT WITHOUT CHOLECYSTITIS OR OBSTRUCTION Operative Findings: GALLBLADDER AND CONTENTS Operation Performed: LAPAROSCOPIC CHOLECYSTECTOMY tm Source of Specimen A: GALLBLADDER AND CONTENTS Gross Description CASI MOREIRA GALLBLADDER AND CONTENTS Received in formalin is a 7.3 x 3.3 x 2.0 cm intact and distended gallbladder. The serosa is green-tinged and predominantly smooth, while the adventitia is finely roughened. There is green, slightly granular mucosa with a slightly fatty wall thickness measuring up to 0.5 cm. Within the lumen is green tenacious bile and multiple yellow bosselated choleliths and fragments (ranging from 0.1 to 0.7 cm). No lesions or periductal lymph nodes are identified. Still Operator Helper sections 1c. tm Microscopic Description Microscopic examination performed. SURGICAL PATHOLOGY CONSULTATION Patient Name: CASI MOREIRA [facility] Rec: [id number] Path Number: [id number] [facility] [employer] [facility]ISTS [facility] ANATOMIC PATHOLOGY [address] [place] [phone] [facility] Comment on above: Performed By: #### P PPVS ####[facility] [address] [place] [address] [phone] lab Director: Flako Braun MD Type + Screenon 08-06-2022 Type + Screen Sample Expiration 08/09/2022,2359 Arm Band Number BE [id number] ABO/Rh(D) O POSITIVE Antibody Screen NEGATIVE [facility] Comment on above: Performed By: #### T YS ####[facility]dsxrz[address]ru[address] [place], [place] [id number] lab Director: Flako Braun MD US GALLBLADDER RUQon 023 US GALLBLADDER RUQ EXAMINATION: RIGHT UPPER QUADRANT ULTRASOUND 08/06/2022 7:49 am COMPARISON: None. HISTORY: ORDERING SYSTEM PROVIDED HISTORY: Cholecystitis TECHNOLOGIST PROVIDED HISTORY: Cholecystitis FINDINGS: LIVER: The liver demonstrates normal echogenicity without evidence of intrahepatic biliary ductal dilatation. Hepatopetal flow portal vein. Liver 15.4 cm in length. BILIARY SYSTEM: Numerous gallstones in the gallbladder. Mild wall thickening at 3.9 mm. No pericholecystic fluid. Negative sonographic Barroso's sign. Common bile duct is within normal limits measuring 2.5 mm. RIGHT KIDNEY: The right kidney is grossly unremarkable without evidence of hydronephrosis. PANCREAS: Visualized portions of the pancreas are unremarkable. OTHER: No evidence of right upper quadrant ascites. IMPRESSION: Cholelithiasis. Mild nonspecific gallbladder wall thickening. No pericholecystic fluid. Negative sonographic Barroso's sign. Exam otherwise unremarkable Interpreted by: Trav New DO Signed by: Trav New DO 08/06/22 Final result Normal [facility] CBC with Diffon 08-05-2022 Abs. Basophil 0.06 k/uL Normal 0.00-0.20 [facility] Comment on above: Performed By: #### C DP, CMPX #### [place] [address] Sand Filler: Flako Braun MD Abs.Imm.Granulocyte 0.03 k/uL Normal 0.00-0.30 [facility] Comment on above: Performed By: #### C DP, CMPX #### [facility] [email or web address] [address] [place] [address] Sand Filler: Flako Braun MD Abs.Neutrophil (Seg) 6.18 k/uL Normal 1.80-8.00 [facility] Comment on above: Performed By: #### C DP, CMPX #### [facility] [email or web address] [address] [place] [address] Sand Filler: Flako Braun MD Basophils/100 WBC (Bld) 1 % Normal 0-2 [facility] Comment on above: Performed By: #### C DP, CMPX #### [facility] [email or web address] [address] [place] [address] Sand Filler: Flako Braun MD Eosinophils (Bld) [#/Vol] 0.31 10*3/uL Normal 0.00-0.44 [facility] Comment on above: Performed By: #### C DP, CMPX #### [address] [address] Sand Filler: Flako Braun MD Eosinophils/100 WBC (Bld) 4 % Normal 1-4 [facility] Comment on above: Performed By: #### C DP, CMPX #### [address] [address] Sand Filler: Flako Braun MD Erythrocyte distribution width (RBC) [Ratio] 15.7 % High 11.8-14.4 [facility] Comment on above: Performed By: #### C DP, CMPX #### [address] [address] Sand Filler: Flako Braun MD Hematocrit (Bld) [Volume fraction] 36.8 % Normal 36.3-47.1 [facility] Comment on above: Performed By: #### C DP, CMPX #### [address] [address] Sand Filler: Flako Braun MD Hemoglobin (Bld) [Mass/Vol] 11.3 g/dL Low 11.9-15.1 [facility] Comment on above: Performed By: #### C DP, CMPX #### [address] [address] Sand Filler: Flako Braun MD Immature granulocytes/100 WBC (Bld) 0 % Normal 0 [facility] Comment on above: Performed By: #### C DP, CMPX #### [address] [address] Sand Filler: Flako Braun MD Lymphocytes (Bld) [#/Vol] 1.28 10*3/uL Normal 1.20-5.20 [facility] Comment on above: Performed By: #### C DP, CMPX #### [address] [address] Sand Filler: Flako Braun MD Lymphocytes/100 WBC (Bld) 15 % Low 25-45 [facility] Comment on above: Performed By: #### C DP, CMPX #### [address] [address] Sand Filler: Flako Braun MD MCH (RBC) [Entitic mass] 25.6 pg Normal 25.2-33.5 [facility] Comment on above: Performed By: #### C DP, CMPX #### [address] [address] Sand Filler: Flako Braun MD MCHC (RBC) [Mass/Vol] 30.7 g/dL Normal 28.4-34.8 [facility] Comment on above: Performed By: #### C DP, CMPX #### [address] [address] Sand Filler: Flako Braun MD MCV (RBC) [Entitic vol] 83.4 fL Normal 82.6-102.9 [facility] Comment on above: Performed By: #### C DP, CMPX #### [address] [address] Sand Filler: Flako Braun MD Monocytes (Bld) [#/Vol] 0.87 10*3/uL Normal 0.10-1.40 [facility] Comment on above: Performed By: #### C DP, CMPX #### [address] [address] Sand Filler: Flako Braun MD Monocytes/100 WBC (Bld) 10 % High 2-8 [facility] Comment on above: Performed By: #### C DP, CMPX #### [address] [address] Sand Filler: Flako Braun MD Neutrophil (Seg) 70 % High 34-64 [facility] Comment on above: Performed By: #### C DP, CMPX #### [address] [address] Sand Filler: Flako Braun MD NRBC Automated 0.0 per 100 WBC Normal 0.0 [facility] Comment on above: Performed By: #### C DP, CMPX #### [address] [address] Sand Filler: Flako Braun MD Platelet mean volume (Bld) [Entitic vol] 11.1 fL Normal 8.1-13.5 [facility] Comment on above: Performed By: #### C DP, CMPX #### [address] [address] Sand Filler: Flako Braun MD Platelets (Bld) [#/Vol] 238 10*3/uL Normal 138-453 [facility] Comment on above: Performed By: #### C DP, CMPX #### [address] [address] Sand Filler: Flako Braun MD RBC (Bld) [#/Vol] 4.41 10*6/uL Normal 3.95-5.11 [facility] Comment on above: Performed By: #### C DP, CMPX #### [address] [address] Sand Filler: Flako Braun MD RBC morphology finding Nom (Bld) ANISOCYTOSIS PRESENT Normal [facility] Comment on above: Performed By: #### C DP, CMPX #### [address] [address] Sand Filler: Flako Braun MD WBC (Bld) [#/Vol] 8.7 10*3/uL Normal 4.5-13.5 [facility] Comment on above: Performed By: #### C DP, CMPX #### [facility] [address] [place] [address] Sand Filler: Flako Braun MD Comp Metabolic Pr/rfx MGon 0 08-05-2022 Creatinine [Mass/Vol] 0.44 mg/dL Low 0.50-0.90 [facility] Comment on above: Result Comment: ICTE VERA SPECIMEN Performed By: #### C DP, CMPX ####[facility] [address] [place] [address] Lab Director: Flako Braun MD GFR/1.73 sq M.predicted among non-blacks MDRD (S/P/Bld) [Vol rate/Area] mL/min/{1.73_m2} Normal >60 [facility] Comment on above: Result Comment: These results are not intended for use in patients <18 years of age. eGFR results are calculated without a race factor using the 2020 CKD-EPI equation. Careful clinical correlation is recommended, particularly when comparing to results calculated using previous equations. The CKD-EPI equation is less accurate in patients with extremes of muscle mass, extra-renal metabolism of creatine, excessive creatine ingestion, or following therapy that affects renal tubular secretion. Performed By: #### C DP, CMPX ####[facility] [address] [place] [address] Lab Director: Flako Braun MD Albumin [Mass/Vol] 3.7 g/dL Normal 3.5-5.2 [facility] Comment on above: Performed By: #### C DP, CMPX ####[facility] [address] [place] [address] Lab Director: Flako Braun MD Albumin/Glob Ratio 1.4 Normal 1.0-2.5 [facility] Comment on above: Performed By: #### C DP, CMPX ####[facility] [address] [place] [address] Lab Director: Flako Braun MD Alkaline Phos 297 U/L High 35-104 [facility] Comment on above: Performed By: #### C DP, CMPX ####[facility] [address] [place] [address] Lab Director: Flako Braun MD ALT [Catalytic activity/Vol] 605 U/L High 5-33 [facility] Comment on above: Performed By: #### C DP, CMPX ####[facility] [address] [place] [address] Lab Director: Flako Braun MD Anion gap [Moles/Vol] 9 mmol/L Normal 9-17 [facility] Comment on above: Performed By: #### C DP, CMPX ####[facility] [address] [place] [address] Lab Director: Flako Braun MD AST [Catalytic activity/Vol] 697 U/L High <32 [facility] Comment on above: Performed By: #### C DP, CMPX ####[facility] [address] [place], [place] [phone] Director: Flako Braun MD Bilirubin [Mass/Vol] 3.6 mg/dL High 0.3-1.2 [facility] Comment on above: Performed By: #### C DP, CMPX ####[facility] [address] [place], [place] [phone] Director: Flako Braun MD Calcium [Mass/Vol] 9.0 mg/dL Normal 8.6-10.4 [facility] Comment on above: Performed By: #### C DP, CMPX ####[facility] [address] [place] [address] Lab Director: Flako Braun MD Chloride [Moles/Vol] 105 mmol/L Normal 98-107 [facility] Comment on above: Performed By: #### C DP, CMPX ####[address] [place], [place] [phone] Director: Flako Braun MD CO2 [Moles/Vol] 22 mmol/L Normal 20-31 [facility] Comment on above: Performed By: #### C DP, CMPX ####[facility] [address] [place], [place] [phone] Director: Flako Braun MD Glucose [Mass/Vol] 86 mg/dL Normal 70-99 [facility] Comment on above: Performed By: #### C DP, CMPX ####[facility] [address] [place] [address] [phone] Director: Flako Braun MD Potassium [Moles/Vol] 3.9 mmol/L Normal 3.7-5.3 [facility] Comment on above: Performed By: #### C DP, CMPX ####[address] [phone] Director: Flako Braun MD Protein [Mass/Vol] 6.4 g/dL Normal 6.4-8.3 [facility] Comment on above: Performed By: #### C DP, CMPX ####[address] [phone] Director: Flako Braun MD Sodium [Moles/Vol] 136 mmol/L Normal 135-144 [facility] Comment on above: Performed By: #### C DP, CMPX ####[facility] [address] [place], [place] [phone] Director: Flako Braun MD Urea nitrogen [Mass/Vol] 6 mg/dL Normal 6-20 [facility] Comment on above: Performed By: #### C DP, CMPX ####[facility] [address] [place], [place] [phone] Director: Flako Braun MD CBC AUTO DIFFon 03-23-2022 BASO # 0.1 103/ul Normal 0.0-0.1 [facility] Comment on above: Performed By: #### C VDTBH #### [facility] [address] [place] [address] Dr. Remigio Roldan Basophils/100 WBC (Bld) 0.5 % Normal 0.2-2.0 [facility] Comment on above: Performed By: #### C VDTBH #### [facility] [address] [place] [address] Dr. Remigio Roldan EO # 0.4 103/ul Normal 0.0-0.7 [facility] Comment on above: Performed By: #### C VDTBH #### [facility] [address] [place] [address] Dr. Remigio Roldan Eosinophils/100 WBC (Bld) 2.0 % Normal 0.9-7.0 [facility] Comment on above: Performed By: #### C VDTBH #### [facility] [address] [place] [address] Dr. Remigio Roldan Erythrocyte distribution width (RBC) [Ratio] 14.6 % Normal 11.0-15.0 [facility] Comment on above: Performed By: #### C VDTBH #### [facility] [address] [place] [address] Dr. Remigio Roldan Hematocrit (Bld) [Volume fraction] 30.3 % Critically low 36.0-48.0 [facility] Comment on above: Performed By: #### C VDTBH #### [facility] [address] [place] [address] Dr. Remigio Roldan Hemoglobin (Bld) [Mass/Vol] 10.0 g/dL Critically low 12.0-16.0 [facility] Comment on above: Performed By: #### C VDTBH #### [facility] [address] [place] [address] Dr. Remigio Roldan IG # 0.16 10e3/ul Critically high 0.00-0.03 [facility] Comment on above: Performed By: #### C VDTBH #### [facility] [address] [address] [address] Remigio Roldan IG % 0.8 % Critically high 0.0-0.5 [facility] Comment on above: Performed By: #### C VDTBH #### [facility] [address] [address] [address] Remigio Roldan LYMPH # 2.8 103/ul Normal 1.2-3.8 [facility] Comment on above: Performed By: #### C VDTBH #### [facility] [address] [address] [address] Remigio Roldan Lymphocytes/100 WBC (Bld) 15.0 % Critically low 20.5-60.0 [facility] Comment on above: Performed By: #### C VDTBH #### [facility] [address] [place] [address] Dr. Remigio Roldan MANUAL DIFF REQ NO Normal [facility] Comment on above: Performed By: #### C VDTBH #### [facility] [address] [place] [address] Dr. Remigio Roldan MCH (RBC) [Entitic mass] 26.2 pg Critically low 26.7-34.0 [facility] Comment on above: Performed By: #### C VDTBH #### [facility] [address] [place] [address] Dr. Remigio Roldan MCHC (RBC) [Mass/Vol] 33.0 g/dL Normal 29.9-35.2 [facility] Comment on above: Performed By: #### C VDTBH #### [facility] [address] [place] [address] Dr. Remigio Roldan MCV (RBC) [Entitic vol] 79.5 fL Critically low 81.0-99.0 [facility] Comment on above: Performed By: #### C VDTBH #### [facility] [address] [place] [address] Dr. Remigio Roldan MONO # 1.4 103/ul Critically high 0.3-0.8 [facility] Comment on above: Performed By: #### C VDTBH #### [facility] [address] [place] [address] Dr. Remigio Roldan Monocytes/100 WBC (Bld) 7.1 % Normal 1.7-12.0 [facility] Comment on above: Performed By: #### C VDTBH #### [facility] [address] [place] [address] Dr. Remigio Roldan NEUT # 14.1 103/ul Critically high 1.4-6.5 [facility] Comment on above: Performed By: #### C VDTBH #### [facility] [address] [place] [address] Dr. Remigio Roldan Neutrophils/100 WBC (Bld) 74.6 % Normal 43.0-75.0 [facility] Comment on above: Performed By: #### C VDTBH #### [facility] [address] [place] [address] Dr. Remigio Roldan Platelet mean volume (Bld) [Entitic vol] 10.8 fL Normal 9.5-13.5 [facility] Comment on above: Performed By: #### C VDTBH #### [facility] [address] [place] [address] Dr. Remigio Roldan PLT 213 103/ul Normal 150-450 [facility] Comment on above: Performed By: #### C VDTBH #### [facility] [address] [place] [address] Dr. Remigio Roldan RBC 3.81 106/ul Critically low 4.20-5.40 [facility] Comment on above: Performed By: #### C VDTBH #### [facility] [address] [place] [address] Dr. Remigio Roldan WBC 18.9 103/ul Critically high 4.0-11.0 [facility] Comment on above: Performed By: #### C VDTBH #### [facility] [address] [place] [address] Dr. Remigio Roldan CBC AUTO DIFFon 03-22-2022 BASO # 0.1 103/ul Normal 0.0-0.1 [facility] Comment on above: Performed By: #### R PRQ #### [facility] [address] [address] [address] Remigio Roldan Basophils/100 WBC (Bld) 0.7 % Normal 0.2-2.0 [facility] Comment on above: Performed By: #### R PRQ #### [facility] [address] [address] [address] Remigio Roldan EO # 0.4 103/ul Normal 0.0-0.7 [facility] Comment on above: Performed By: #### R PRQ #### [facility] [address] [address] [address] Remigio Roldan Eosinophils/100 WBC (Bld) 2.7 % Normal 0.9-7.0 [facility] Comment on above: Performed By: #### R PRQ #### [facility] [address] [place] [address] Dr. Remigio Roldan Erythrocyte distribution width (RBC) [Ratio] 14.7 % Normal 11.0-15.0 [facility] Comment on above: Performed By: #### R PRQ #### [facility] [address] [place] [address] Dr. Remigio Roldan Hematocrit (Bld) [Volume fraction] 33.3 % Critically low 36.0-48.0 [facility] Comment on above: Performed By: #### R PRQ #### [facility] [address] [place] [address] Dr. Remigio Roldan Hemoglobin (Bld) [Mass/Vol] 10.9 g/dL Critically low 12.0-16.0 [facility] Comment on above: Performed By: #### R PRQ #### [facility] [address] [address] [address] Remigio Roldan IG # 0.13 10e3/ul Critically high 0.00-0.03 [facility] Comment on above: Performed By: #### R PRQ #### [facility] [address] [place] [address] Dr. Remigio Roldan IG % 0.8 % Critically high 0.0-0.5 [facility] Comment on above: Performed By: #### R PRQ #### [facility] [address] [address] [address] Remigio Roldan LYMPH # 2.3 103/ul Normal 1.2-3.8 [facility] Comment on above: Performed By: #### R PRQ #### [facility] [address] [address] [address] Remigio Roldan Lymphocytes/100 WBC (Bld) 14.9 % Critically low 20.5-60.0 [facility] Comment on above: Performed By: #### R PRQ #### [facility] [address] [address] [address] Remigio Roldan MANUAL DIFF REQ NO Normal [facility] Comment on above: Performed By: #### R PRQ #### [facility] [address] [address] [address] Remigio Roldan MCH (RBC) [Entitic mass] 26.1 pg Critically low 26.7-34.0 [facility] Comment on above: Performed By: #### R PRQ #### [facility] [address] [address] [address] Remigio Roldan MCHC (RBC) [Mass/Vol] 32.7 g/dL Normal 29.9-35.2 [facility] Comment on above: Performed By: #### R PRQ #### [facility] [address] [address] [address] Remigio Roldan MCV (RBC) [Entitic vol] 79.7 fL Critically low 81.0-99.0 [facility] Comment on above: Performed By: #### R PRQ #### [facility] [address] [address] [address] Remigio Roldan MONO # 1.1 103/ul Critically high 0.3-0.8 [facility] Comment on above: Performed By: #### R PRQ #### [facility] [address] [address] [address] Remigio Roldan Monocytes/100 WBC (Bld) 6.9 % Normal 1.7-12.0 [facility] Comment on above: Performed By: #### R PRQ #### [facility] [address] [address] [address] Remigio Roldan NEUT # 11.6 103/ul Critically high 1.4-6.5 [facility] Comment on above: Performed By: #### R PRQ #### [facility] [address] [address] [address] Remigio Roldan Neutrophils/100 WBC (Bld) 74.0 % Normal 43.0-75.0 [facility] Comment on above: Performed By: #### R PRQ #### [facility] [address] [address] [address] Remigio Roldan Platelet mean volume (Bld) [Entitic vol] 10.9 fL Normal 9.5-13.5 [facility] Comment on above: Performed By: #### R PRQ #### [facility] [address] [address] [address] Remigio Roldan PLT 241 103/ul Normal 150-450 [facility] Comment on above: Performed By: #### R PRQ #### [facility] [address] [address] [address] Remigio Roldan RBC 4.18 106/ul Critically low 4.20-5.40 [facility] Comment on above: Performed By: #### R PRQ #### [facility] [address] [address] [address] Remigio Roldan WBC 15.7 103/ul Critically high 4.0-11.0 [facility] Comment on above: Performed By: #### R PRQ #### [facility] [address] [place] [address] Dr. Remigio Roldan Covid-19 PCR ([facility])on SARS-CoV-2 (COVID-19) RNA CLIVE+probe Ql (Unsp spec) Not detected Normal NOT DETECTED [facility] Comment on above: Result Comment: When diagnostic testing is negative, the possibility of a false negative should be considered in the context of a patient's recent exposures and the presence of clinical signs and symptoms consistent with SARS-CoV-2. This test is not yet approved or cleared by the [place] FDA. When there are no FDA-approved or cleared tests available, and other criteria are met, FDA can make tests available under an emergency access mechanism called an Emergency Use Authorization (EUA). The EUA for this test is supported by the Human Resources Coordinator of Health and Human Service's declaration that circumstances exist to justify the emergency use of in vitro diagnostics for the detection and/or diagnosis of the virus that causes COVID-19. This EUA will remain in effect for the duration of the COVID-19 declaration justifying emergency of IVDs, unless it is terminated or revoked by the FDA (after which the test may no longer be used). Performed By: #### C VDTBH #### [facility] [address] [place] [address] Dr. Remigio Roldan DRUG SCREEN RAPID (URINE)on 03-22-2022 AMP Negative Normal NEGATIVE [facility] Comment on above: Performed By: #### C VDTBH #### [facility] [address] [place] [address] Dr. Remigio Roldan BAR Negative Normal NEGATIVE [facility] Comment on above: Performed By: #### C VDTBH #### [facility] [address] [place] [address] Dr. Remigio Roldan BUP Negative Normal NEGATIVE [facility] Comment on above: Performed By: #### C VDTBH #### [facility] [address] [place] [address] Dr. Remigio Roldan BZO Negative Normal NEGATIVE [facility] Comment on above: Performed By: #### C VDTBH #### [facility] [address] [place] [address] Dr. Remigio Roldan BRYON Negative Normal NEGATIVE [facility] Comment on above: Performed By: #### C VDTBH #### [facility] [address] [place] [address] Dr. Remigio Roldan CUT-OFFS SEE BELOW Normal [facility] Comment on above: Result Comment: AMP (Amphetamine): 500ng/mL, BAR (Barbituates): 200 ng/mL, BZO (Benzodiazepines): 150 ng/mL, BUP (Buprenorphine): 10 ng/mL, BRYON (Cocaine): 150 ng/mL, mAMP (Methamphetamine): 500 ng/mL, MTD (Methadone): 200 ng/mL, OPI (Opiates): 100 ng/mL, OXY (Oxycodone): 100 ng/mL, PCP (Phencyclidine): 25 ng/mL, PPX (Propoxyphene): 300 ng/mL, THC (Cannabinoids): 50 ng/mL, TCA (Trycyclic Antidepressants): 300 ng/mL Performed By: #### C VDTBH #### [facility] [address] [place] [address] Dr. Remigio Roldan DRUG CUT HEADER DRUG CLASS TEST SYSTEM CUT-OFF CONCENTRATIONS ARE FOLLOWS: Normal [facility] Comment on above: Performed By: #### C VDTBH #### [facility] [address] [place] [address] Dr. Remigio Roldan mAMP Negative Normal NEGATIVE [facility] Comment on above: Performed By: #### C VDTBH #### [facility] [address] [place] [address] Dr. Remigio Roldan MTD Negative Normal NEGATIVE [facility] Comment on above: Performed By: #### C VDTBH #### [facility] [address] [place] [address] Dr. Remigio Roldan OPI Negative Normal NEGATIVE [facility] Comment on above: Performed By: #### C VDTBH #### [facility] [address] [place] [address] Dr. Remigio Roldan OXY Negative Normal NEGATIVE [facility] Comment on above: Performed By: #### C VDTBH #### [facility] [address] [place] [address] Dr. Remigio Roldan PCP Negative Normal NEGATIVE [facility] Comment on above: Performed By: #### C VDTBH #### [facility] [address] [place] [address] Dr. Remigio Roldan PPX Negative Normal NEGATIVE [facility] Comment on above: Performed By: #### C VDTBH #### [facility] [address] [place] [address] Dr. Remigio Roldan TCA Negative Normal NEGATIVE [facility] Comment on above: Performed By: #### C VDTBH #### [facility] [address] [place] [address] Dr. Remigio Roldan THC Negative Normal NEGATIVE [facility] Comment on above: Performed By: #### C VDTBH #### [facility] [address] [place] [address] Dr. Remigio Roldan TYPE AND SCREENon 03-22-2022 TYPE AND SCREEN Negative Normal [facility] Comment on above: Performed By: #### R PRQ #### [facility] [address] [place] [address] Dr. Remigio Roldan GROUP B STREP CULTUREon 02-20 S. agalactiae Ag Ql (Unsp spec) Culture Observations: NEGATIVE FOR GROUP B STREPTOCOCCUS. Normal [facility] Comment on above: Performed By: #### R PRQ #### [facility] [address] [place] [address] Dr. Remigio Roldan US PREG GROWTHon 02-09-2022 US PREG GROWTH EXAMINATION: US PREG GROWTH HISTORY: Excessive growth affecting management of mother COMPARISON: No relevant comparison available. FINDINGS: Heart Rate: 170.9 bpm Amniotic Fluid Volume: 18.4 cm Number: 1.0 Position: Cephalic presentation, longitudinal lie Maximum Vertical Pocket: 8.3 cm cm 4.5 cm cm 4.7 cm cm 0.9 cm cm BIOMETRY: BPD: 8.7 cm cm; 35 weeks 2 days; 93% HC: 30.9 cmcm; 34 weeks 4 days, 49% AC: 30.2 cm cm; 34 weeks 1 days, 79% FL: 6.9 cm cm; 35 weeks 4 days; 92.3 % % EFW: 2490.3 grams, 5 lbs. 8 oz., 86% FL/AC: 23.0 FL/BPD: 79.5 HC/AC: 1.0 GESTATIONAL AGE: Age by EDC: 33 weeks 1 days JOSE ANGEL by EDC: 03/29/2022 Age by US: 34 weeks 6 days JOSE ANGEL by US: 03/17/2022 IMPRESSION: Normal interval growth Electronically authenticated by: SYDNEE OBREGON Date: 2022-02-09 18:38 Normal [facility] GLUCOSE - 1HRon 12-16-2021 Glucose [Mass/Vol] 93 mg/dL Normal 74-106 [facility] Comment on above: Performed By: #### C VDTBH #### [facility] [address] [place] [address] Dr. Remigio Roldan HEMOGRAM AND PLATELon 2021 Hematocrit (Bld) [Volume fraction] 36.3 % Normal 36.0-48.0 [facility] Comment on above: Performed By: #### R PRQ #### [facility] [address] [place] [address] Dr. Remigio Roldan Hemoglobin (Bld) [Mass/Vol] 11.8 g/dL Critically low 12.0-16.0 [facility] Comment on above: Performed By: #### R PRQ #### [facility] [address] [place] [address] Dr. Remigio Roldan MCH (RBC) [Entitic mass] 28.2 pg Normal 26.7-34.0 [facility] Comment on above: Performed By: #### R PRQ #### [facility] [address] [place] [address] Dr. Remigio Roldan MCHC (RBC) [Mass/Vol] 32.5 g/dL Normal 29.9-35.2 [facility] Comment on above: Performed By: #### R PRQ #### [facility] [address] [place] [address] Dr. Remigio Roldan MCV (RBC) [Entitic vol] 86.6 fL Normal 81.0-99.0 [facility] Comment on above: Performed By: #### R PRQ #### [facility] [address] [place] [address] Dr. Remigio Roldan PLT 238 103/ul Normal 150-450 [facility] Comment on above: Performed By: #### R PRQ #### [facility] [address] [place] [address] Dr. Remigio Roldan RBC 4.19 106/ul Critically low 4.20-5.40 [facility] Comment on above: Performed By: #### R PRQ #### [facility] [address] [place], [place] [address] Dr. Remigio Roldan WBC 14.1 103/ul Critically high 4.0-11.0 [facility] Comment on above: Performed By: #### R PRQ #### [facility] [address] [place], [place] [address] Dr. Remigio Roldan US PREG ANATOMY SINGLEon US PREG ANATOMY SINGLE EXAMINATION: US PREG ANATOMY SINGLE HISTORY: anatomy study COMPARISON: No relevant comparison available. TECHNIQUE: Transabdominal sonographic examination was performed for obstetrical and evaluation. FINDINGS: Number: 1 Heart Rate: 157.0 bpm H.B. /min Amniotic Fluid Volume: Subjectively normal position: Cephalic presentation, longitudinal lie Placental Location: Anterior, grade 0. Cervix Length: 4.2 cm, closed Normal structures: Cerebellum. Choroid plexus. Cisterna magna. Lateral cerebral ventricles. Orbits. Midline falx. Hard palate. 4-chamber heart. RVOT. LVOT. Stomach. Kidneys. Bladder. Umbilical cord insertion into abdomen. 3 vessel cord. Cervical spine. Thoracic spine. Lumbar spine. Sacral spine. Right upper extremity. Left upper extremity. Right lower extremity. Left lower extremity. Suboptimally seen: None. Abnormalities/Other: None BIOMETRY: BPD: 5.0 cm 21 weeks 1 days , 88% HC: 18.3 cm 20 weeks 5 days, 74% AC: 15.4 cm 20 weeks 4 days, 66% FL: 3.7 cm 21 weeks 4 days, 90% EFW:395.5 grams; 14 ounces, 94% FL/AC: 23.7 FL/BPD: 73.5 HC/AC: 1.2 GESTATIONAL AGE: Age by EDC: 20 weeks 0 days JOSE ANGEL by EDC: 03/29/2022 Age by current US: 21 weeks 0 days JOSE ANGEL by current US: 03/22/2022 IMPRESSION: Estimated weight 94th percentile Otherwise normal anatomy scan *Reference: [employer] Practice Guideline for the performance of Obstetric Ultrasound Examinations, January 20, 2007. Electronically authenticated by: SYDNEE OBREGON Date: 2021-11-09 16:07 Normal [facility] CHLAMYDIA/GONOCOCCUS CLIVE (SW AB/URINE/PAPon 11-03-2021 Chlamydia trachomatis, CLIVE Negative Normal Negative [facility] Comment on above: Performed By: #### C VDTBH #### [facility] [address] [place] [address] Dr. Remigio Roldan Neisseria gonorrhoeae, CLIVE Negative Normal Negative [facility] Comment on above: Performed By: #### C VDTBH #### [facility] [address] [place] [address] Dr. Remigio Roldan VAGINITIS/VAGINOSIS DNA PROB Tereso 11-02-2021 [place] species Positive Abnormal Negative [facility] Comment on above: Performed By: #### V AGINT #### [facility] [address] [place] [address] Dr. Remigio Roldan Gardnerella vaginalis Negative Normal Negative [facility] Comment on above: Performed By: #### V AGINT #### [facility] [address] [place] [address] Dr. Remigio Roldan Trichomonas vaginalis Negative Normal Negative [facility] Comment on above: Performed By: #### V AGINT #### [facility] [address] [place] [address] Dr. Remigio Roldan RUBELLA AB IGGon 09-09-2021 Rubella Antibodies, IgG 0.99 index Critically low Immune >0.99 [facility] Comment on above: Result Comment: A se cond sample should be collected and tested no less than 2-4 weeks. Non-immune <0.90 Equivocal 0.90 - 0.99 Immune >0.99 Performed By: #### R UBIGG #### [facility] [address] [place] [address] Dr. Remigio Roldan HEP B SURFACE ANTIGEN SCREEN on 09-08-2021 HBsAg Screen Negative Normal Negative [facility] Comment on above: Performed By: #### C VDTBH #### [facility] [address] [place] [address] Dr. Remigio Roldan HEPATITIS C VIRUS AB W/ REFL EX QUANTon 09-08-2021 HCV AB <0.1 Normal 0.0-0.9 [facility] Comment on above: Performed By: #### R PRQ #### [facility] [address] [place] [address] Dr. Remigio Roldan Interpretation: Comment Normal [facility] Comment on above: Result Comment: Nega tive Not infected with HCV, unless recent infection is suspected or other evidence exists to indicate HCV infection. Performed By: #### R PRQ #### [facility] [address] [place] [address] Dr. Remigio Roldan HIV 1 AND 2 WITH REFLEXon HIV Screen 4th Generation wRfx Non-Reactive Normal Non Reactive [facility] Comment on above: Result Comment: HIV Negative HIV-1/HIV-2 antibodies and HIV-1 p24 antigen were NOT detected. There is no laboratory evidence of HIV infection. Performed By: #### R PRQ #### [facility] [address] [place] [address] Dr. Remigio Roldan RPR QUANTon 09-08-2021 Rapid Plasma Reagin, Quant Non-Reactive Normal NonRea<1:1 [facility] Comment on above: Result Comment: Plea se Note: This test does not meet current guidelines for screening and diagnosis of syphilis. This test is intended for following treatment response in patients being treated for syphilis infection. To screen for syphilis infection, a reflex cascade that includes both RPR and a treponema-specific assay should be utilized, such as Treponema pallidum (Syphilis) Screening [place] (255213) or Rapid Plasma Reagin (RPR) Test With Reflex to Quantitative RPR and Confirmatory Treponema pallidum Antibodies (092955). Performed By: #### R PRQ #### [facility] [address] [place] [address] Dr. Remigio Roldan CBC AUTO DIFFon 09-07-2021 BASO # 0.1 103/ul Normal 0.0-0.1 [facility] Comment on above: Performed By: #### C BC #### [facility] [address] [place] [address] Dr. Remigio Roldan Basophils/100 WBC (Bld) 0.8 % Normal 0.2-2.0 [facility] Comment on above: Performed By: #### C BC #### [facility] [address] [place] [address] Dr. Remigio Roldan EO # 0.1 103/ul Normal 0.0-0.7 [facility] Comment on above: Performed By: #### C BC #### [facility] [address] [place] [address] Dr. Remigio Roldan Eosinophils/100 WBC (Bld) 0.9 % Normal 0.9-7.0 [facility] Comment on above: Performed By: #### C BC #### [facility] [address] [place] [address] Dr. Remigio Roldan Erythrocyte distribution width (RBC) [Ratio] 13.8 % Normal 11.0-15.0 [facility] Comment on above: Performed By: #### C BC #### [facility] [address] [place] [address] Dr. Remigio Roldan Hematocrit (Bld) [Volume fraction] 39.9 % Normal 36.0-48.0 [facility] Comment on above: Performed By: #### C BC #### [facility] [address] [place] [address] Dr. Remigio Roldan Hemoglobin (Bld) [Mass/Vol] 12.8 g/dL Normal 12.0-16.0 [facility] Comment on above: Performed By: #### C BC #### [facility] [address] [place] [address] Dr. Remigio Roldan IG # 0.02 10e3/ul Normal 0.00-0.03 [facility] Comment on above: Performed By: #### C BC #### [facility] [address] [place] [address] Dr. Remigio Roldan IG % 0.2 % Normal 0.0-0.5 [facility] Comment on above: Performed By: #### C BC #### [facility] [address] [place] [address] Dr. Remigio Roldan LYMPH # 1.4 103/ul Normal 1.2-3.8 [facility] Comment on above: Performed By: #### C BC #### [facility] [address] [address] [address] Remigio Roldan Lymphocytes/100 WBC (Bld) 16.2 % Critically low 20.5-60.0 [facility] Comment on above: Performed By: #### C BC #### [facility] [address] [address] [address] Remigio Roldan MANUAL DIFF REQ NO Normal [facility] Comment on above: Performed By: #### C BC #### [facility] [address] [address] [address] Remigio Roldan MCH (RBC) [Entitic mass] 27.1 pg Normal 26.7-34.0 [facility] Comment on above: Performed By: #### C BC #### [facility] [address] [place] [address] Dr. Remigio Roldan MCHC (RBC) [Mass/Vol] 32.1 g/dL Normal 29.9-35.2 [facility] Comment on above: Performed By: #### C BC #### [facility] [address] [place] [address] Dr. Remigio Roldan MCV (RBC) [Entitic vol] 84.5 fL Normal 81.0-99.0 [facility] Comment on above: Performed By: #### C BC #### [facility] [address] [place] [address] Dr. Remigio Roldan MONO # 0.5 103/ul Normal 0.3-0.8 [facility] Comment on above: Performed By: #### C BC #### [facility] [address] [place] [address] Dr. Remigio Roldan Monocytes/100 WBC (Bld) 6.1 % Normal 1.7-12.0 [facility] Comment on above: Performed By: #### C BC #### [facility] [address] [place] [address] Dr. Remigio Roldan NEUT # 6.7 103/ul Critically high 1.4-6.5 [facility] Comment on above: Performed By: #### C BC #### [facility] [address] [place] [address] Dr. Remigio Roldan Neutrophils/100 WBC (Bld) 75.8 % Critically high 43.0-75.0 [facility] Comment on above: Performed By: #### C BC #### [facility] [address] [place] [address] Dr. Remigio Roldan Platelet mean volume (Bld) [Entitic vol] 10.7 fL Normal 9.5-13.5 [facility] Comment on above: Performed By: #### C BC #### [facility] [address] [place] [address] Dr. Remigio Roldan PLT 221 103/ul Normal 150-450 [facility] Comment on above: Performed By: #### C BC #### [facility] [address] [place] [address] Dr. Remigio Roldan RBC 4.72 106/ul Normal 4.20-5.40 [facility] Comment on above: Performed By: #### C BC #### [facility] [address] [place] [address] Dr. Remigio Roldan WBC 8.9 103/ul Normal 4.0-11.0 [facility] Comment on above: Performed By: #### C BC #### [facility] [address] [place] [address] Dr. Remigio Roldan CULTURE URINEon 09-07-2021 CULTURE URINE Culture Observations : LIGHT GROWTH OF MIXED GENITAL GUILLERMINA. NO POTENTIAL PATHOGENS SEEN. Normal [facility] Comment on above: Performed By: #### U RCX #### [facility] [address] [place] [address] Dr. Remigio Roldan GLYCOHEMOGLOBIN A1Con 2021 ADA RECOMMENDATION SEE BELOW Normal [facility] Comment on above: Result Comment: ADA RECOMMENDED LIMIT 4.0 - 6.0 ADA THERAPEUTIC TARGET < 7.0 ACTION SUGGESTED > 7.0 Performed By: #### C VDTBH #### [facility] [address] [place] [address] Dr. Remigio Roldan Glucose [Mass/Vol] 103 mg/dL Normal [facility] Comment on above: Performed By: #### C VDTBH #### [facility] [address] [address] [address] Remigio Roldan HbA1c (Bld) [Mass fraction] 5.2 % Normal 4.5-6.2 [facility] Comment on above: Performed By: #### C VDTBH #### [facility] [address] [address] [address] Remigio Roldan FIDELIA BOX TEST PT SEND OUTo n 09-07-2021 SENT TO REF LAB 09/07/2021 Normal [facility] Comment on above: Performed By: #### N BOX #### [facility] [address] [address] [address] Remigio Roldan TYPE AND SCREENon 09-07-2021 TYPE AND SCREEN Negative Normal [facility] Comment on above: Performed By: #### R PRQ #### [facility] [address] [place] [address] Dr. Remigio Roldan US PREG TVon 08-03-2021 US PREG TV EXAMINATION: US PREG TV HISTORY: Missed period COMPARISON: No relevant comparison available. FINDINGS: GESTATIONAL SAC: Present and normal appearing. POLE: Present and normal appearing. YOLK SAC: Present. CARDIAC: Present. UTERUS: Normal size and appearance. OVARIES: Right: Normal. Left: Normal. CERVIX: 4.7 cm in length and closed. CUL-DE-SAC: Normal. OTHER: None. AGE BY LMP: Unknown JOSE ANGEL BY LMP: AGE BY US CRL: 6 weeks, 0 days JOSE ANGEL BY US CRL: 03/29/2022 IMPRESSION: 1. Single live intrauterine 6 weeks, 0 days. Electronically authenticated by: ANA ROSA GÓMEZ Date: 2021-08-03 13:47 Normal [facility] Telephone Encounteron 2021 [employer] Authentication Interface Message Text Spoke with patient, states she is Newly and due in March. Told patient to call our office once the baby is born and we will schedule her a follow up appointment to come in and reevaluate her and then we may have to resubmit a PA to her insurance company but once that was completed we would get her scheduled for her Procedure. Patient understands and will call back after the baby is born. Best! Margaret Normal [facility] [employer] Authentication Interface Message Text Patient needs 60 Min/GA/Main with Kanu Moses~ Margaret Normal [facility]O [facility] 07-24-2021 BASO # 0.1 103/ul Normal 0.0-0.1 [facility] Comment on above: Performed By: #### C VDTBH #### [facility] [address] [place] [address] Dr. Remigio Roldan Basophils/100 WBC (Bld) 0.5 % Normal 0.2-2.0 [facility] Comment on above: Performed By: #### C VDTBH #### [facility] [address] [place] [address] Dr. Remigio Roldan EO # 0.2 103/ul Normal 0.0-0.7 [facility] Comment on above: Performed By: #### C VDTBH #### [facility] [address] [place] [address] Dr. Remigio Roldan Eosinophils/100 WBC (Bld) 1.0 % Normal 0.9-7.0 [facility] Comment on above: Performed By: #### C VDTBH #### [facility] [address] [place] [address] Dr. Remigio Roldan Erythrocyte distribution width (RBC) [Ratio] 14.6 % Normal 11.0-15.0 [facility] Comment on above: Performed By: #### C VDTBH #### [facility] [address] [place] [address] Dr. Remigio Roldan Hematocrit (Bld) [Volume fraction] 38.5 % Normal 36.0-48.0 [facility] Comment on above: Performed By: #### C VDTBH #### [facility] [address] [place] [address] Dr. Remigio Roldan Hemoglobin (Bld) [Mass/Vol] 12.5 g/dL Normal 12.0-16.0 [facility] Comment on above: Performed By: #### C VDTBH #### [facility] [address] [place] [address] Dr. Remigio Roldan IG # 0.06 10e3/ul Critically high 0.00-0.03 [facility] Comment on above: Performed By: #### C VDTBH #### [facility] [address] [place] [address] Dr. Remigio Roldan IG % 0.4 % Normal 0.0-0.5 [facility] Comment on above: Performed By: #### C VDTBH #### [facility] [address] [place] [address] Dr. Remigio Roldan LYMPH # 2.5 103/ul Normal 1.2-3.8 [facility] Comment on above: Performed By: #### C VDTBH #### [facility] [address] [place] [address] Dr. Remigio Roldan Lymphocytes/100 WBC (Bld) 15.9 % Critically low 20.5-60.0 [facility] Comment on above: Performed By: #### C VDTBH #### [facility] [address] [place] [address] Dr. Remigio Roldan MANUAL DIFF REQ NO Normal [facility] Comment on above: Performed By: #### C VDTBH #### [facility] [address] [place] [address] Dr. Remigio Roldan MCH (RBC) [Entitic mass] 26.9 pg Normal 26.7-34.0 [facility] Comment on above: Performed By: #### C VDTBH #### [facility] [address] [place] [address] Dr. Remigio Roldan MCHC (RBC) [Mass/Vol] 32.5 g/dL Normal 29.9-35.2 [facility] Comment on above: Performed By: #### C VDTBH #### [facility] [address] [place] [address] Dr. Remigio Roldan MCV (RBC) [Entitic vol] 82.8 fL Normal 81.0-99.0 [facility] Comment on above: Performed By: #### C VDTBH #### [facility] [address] [place] [address] Dr. Remigio Roldan MONO # 0.8 103/ul Normal 0.3-0.8 [facility] Comment on above: Performed By: #### C VDTBH #### [facility] [address] [place] [address] Dr. Remigio Roldan Monocytes/100 WBC (Bld) 5.4 % Normal 1.7-12.0 [facility] Comment on above: Performed By: #### C VDTBH #### [facility] [address] [place] [address] Dr. Remigio Roldan NEUT # 11.8 103/ul Critically high 1.4-6.5 [facility] Comment on above: Performed By: #### C VDTBH #### [facility] [address] [place] [address] Dr. Remigio Roldan Neutrophils/100 WBC (Bld) 76.8 % Critically high 43.0-75.0 [facility] Comment on above: Performed By: #### C VDTBH #### [facility] [address] [place] [address] Dr. Remigio Roldan Platelet mean volume (Bld) [Entitic vol] 10.2 fL Normal 9.5-13.5 [facility] Comment on above: Performed By: #### C VDTBH #### [facility] [address] [place] [address] Dr. Remigio Roldan PLT 292 103/ul Normal 150-450 [facility] Comment on above: Performed By: #### C VDTBH #### [facility] [address] [place] [address] Dr. Remigio Roldan RBC 4.65 106/ul Normal 4.20-5.40 [facility] Comment on above: Performed By: #### C VDTBH #### [facility] [address] [place] [address] Dr. Remigio Roldan WBC 15.4 103/ul Critically high 4.0-11.0 The [facility] Comment on above: Performed By: #### C VDTBH #### [facility] [address] [place] [address] Dr. Remigio Roldan ER URINE PROFILEon 2 Bilirubin Ql (U) Negative Normal NEGATIVE [facility] Comment on above: Performed By: #### E RUR #### [facility] [address] [place] [address] Dr. Remigio Roldan Clarity (U) CLEAR Normal CLEAR [facility] Comment on above: Performed By: #### E RUR #### [facility] [address] [place] [address] Dr. Remigio Roldan Color (U) YELLOW Normal YELLOW [facility] Comment on above: Performed By: #### E RUR #### [facility] [address] [place] [address] Dr. Remigio Roldan ERUSALLY A micrscopic examination will be performed if indicated. Normal [facility] Comment on above: Performed By: #### E RUR #### [facility] [address] [place] [address] Dr. Remigio Roldan Glucose Ql (U) Negative Normal NEGATIVE [facility] Comment on above: Performed By: #### E RUR #### [facility] [address] [place] [address] Dr. Remigio Roldan Hemoglobin Ql (U) Negative Normal NEGATIVE [facility] Comment on above: Performed By: #### E RUR #### [facility] [address] [place] [address] Dr. Remigio Roldan Ketones Ql (U) Negative Normal NEGATIVE [facility] Comment on above: Performed By: #### E RUR #### [facility] [address] [place] [address] Dr. Remigio Roldan LEUKOCYTES Negative Normal NEGATIVE [facility] Comment on above: Performed By: #### E RUR #### [facility] [address] [place] [address] Dr. Remigio Roldan Nitrite Ql (U) Negative Normal NEGATIVE [facility] Comment on above: Performed By: #### E RUR #### [facility] [address] [place] [address] Dr. Remigio Roldan pH (U) 6.0 [pH] Normal 5-9 [facility] Comment on above: Performed By: #### E RUR #### [facility] [address] [address] [address] Remigio Roldan SPEC GRAVITY >=1.030 Abnormal 1.005-<=1.025 [facility] Comment on above: Performed By: #### E RUR #### [facility] [address] [place] [address] Dr. Remigio Roldan UA PROTEIN Negative Normal NEGATIVE/ TRACE [facility] Comment on above: Performed By: #### E RUR #### [facility] [address] [place] [address] Dr. Remigio Roldan UR MICRO IND NOT INDICATED Normal [facility] Comment on above: Performed By: #### E RUR #### [facility] [address] [place] [address] Dr. Remigio Roldan Urobilinogen Qn (U) 0.2 {Tereza'U}/dL Normal 0.2 - 1. 0 [facility] Comment on above: Performed By: #### E RUR #### [facility] [address] [place] [address] Dr. Remigio Roldan PREG QUANT HCGon 07-24-2021 HCG QUANT 2263 mIU/mL Normal [facility] Comment on above: Performed By: #### P REGQNT, BMP #### [facility] [address] [place] [address] Dr. Remigio Roldan HCG RANGE SEE BELOW Normal [facility] Comment on above: Result Comment: 5-50 0-1 WEEK 40-300 1-2 WEEKS 100-1,000 2-3 WEEKS 500-6,000 3-4 WEEKS 5,000-200,000 1-2 MONTHS 10,000-100,000 2-3 MONTHS 3,000-50,000 2ND TRIMESTER 1,000-50,000 3RD TRIMESTER Performed By: #### P REGQNT, BMP #### [facility] [address] [place] [address] Dr. Remigio Roldan PROF CHEM 8 (BAS METB)on Anion gap [Moles/Vol] 13.6 mmol/L Normal [facility] Comment on above: Performed By: #### P REGQNT, BMP #### [facility] [address] [address] [address] Remigio Roldan Calcium [Mass/Vol] 8.6 mg/dL Normal 8.5-10.1 [facility] Comment on above: Performed By: #### P REGQNT, BMP #### [facility] [address] [address] [address] Remigio Roldan Chloride [Moles/Vol] 101 mmol/L Normal 98-107 [facility] Comment on above: Performed By: #### P REGQNT, BMP #### [facility] [address] [address] [address] Remigio Roldan CO2 [Moles/Vol] 26.0 mmol/L Normal 22.0-30.0 [facility] Comment on above: Performed By: #### P REGQNT, BMP #### [facility] [address] [address] [address] Remigio Roldan Creatinine [Mass/Vol] 0.57 mg/dL Normal 0.52-1.04 [facility] Comment on above: Performed By: #### P REGQNT, BMP #### [facility] [address] [address] [address] Remigio Roldan EGFR-AF BRITISH >60 Normal >=60 The [facility] Comment on above: Performed By: #### P REGQNT, BMP #### [facility] [address] [address] [address] Remigio Roldan EGFR-NON AF BRITISH >60 Normal >=60 [facility] Comment on above: Performed By: #### P REGQNT, BMP #### [facility] [address] [address] [address] Remigio Roldan Glucose [Mass/Vol] 83 mg/dL Normal 74-106 [facility] Comment on above: Performed By: #### P REGQNT, BMP #### [facility] [address] [address] [address] Remigio Roldan Potassium [Moles/Vol] 3.6 mmol/L Normal 3.4-5.0 [facility] Comment on above: Performed By: #### P REGQNT, BMP #### [facility] [address] [address] [address] Remigio Roldan Sodium [Moles/Vol] 137 mmol/L Normal 137-145 [facility] Comment on above: Performed By: #### P REGQNT, BMP #### [facility] [address] [address] [address] Remigio Roldan Urea nitrogen [Mass/Vol] 8.0 mg/dL Normal 6.4-19.3 [facility] Comment on above: Performed By: #### P REGQNT, BMP #### [facility] [address] [place] [address] Dr. Remigio Roldan Urea nitrogen/Creatinine [Mass ratio] 14.0 mg/mg Normal [facility] Comment on above: Performed By: #### P REGQNT, BMP #### [facility] [address] [place] [address] Dr. Remigio Roldan Telephone Encounteron 2021 [employer] Authentication Interface Message Text Patient will be contacted when PA has been approved and processed. Thank you, Clyde Normal [facility] [employer] Authentication Interface Message Text Pt's mom called to check on scheduling status for her surgery. Her consult was on 06/20/21. Pt and mom are aware they will be contacted once approval is received. Best contact # [phone]. Thank you. Normal [facility] [employer] Patient Instructionson 06-20 [employer] Authentication Interface Message Text Oral Surgery IV sedation / General anesthesia instructions You have chosen conscious sedation or general anesthesia for your treatment. You have the right to be informed about this so that you can decide whether to have it or not after knowing the risks and benefits. These common procedures are considered quite safe. Nevertheless, all procedures have some risks. They include the following and others: 1. Discomfort, swelling or bruising where the drugs are placed into a vein. 2. Vein irritation, called phlebitis, where the drugs are placed into a vein. Sometimes this may grow to a level of discomfort or disability where it may be difficult to move your arm or hand. Sometimes medication or other treatment may be needed. 3. Nerves travel next to the blood vessels where the drugs are placed into a vein. If the needle hits a nerve or if drugs or fluid leaks out of the vessel around a nerve, I may have numbness or pain in the nerve where it runs along the arm. Usually the numbness or pain goes away, but in some cases, it may be permanent 4. Allergic reactions (previously unknown) to any of the medications used. 5. Nausea and vomiting, although not common, are possible unfortunate side effects. Bed rest, and sometimes medications, may be required for relief. 6. Conscious sedation and general anesthesia are serious medical procedures and, whether given in a hospital or office, carry the risk of brain damage, stroke, heart attack or . YOUR OBLIGATIONS: 7. Because anesthetic or sedative medications (including oral premedication) causes drowsiness that lasts for some time, I MUST be accompanied by a responsible adult to drive me to and from surgery, and stay with me for several hours until you are recovered sufficiently to care for myself. Sometimes the effects of the drugs do not wear off for 24 hours. 8. During recovery time (normally 24 hours), I should not drive, operate complicated machinery or devices or make important decisions such as signing documents, etc. 9. I must have a completely empty stomach. It is vital that I have NOTHING TO EAT OR DRINK for eight (8) hours prior to your treatment. TO DO OTHERWISE MAY BE LIFE-THREATENING. 10. Unless instructed otherwise, it is important that I take any regular medications (high blood pressure, antibiotics, etc.) or any medicines given to me by my surgeon using only a small sip of water. 11. You must bring a responsible Adult with you who is willing to stay in the clinic waiting room while you are being treated, and who will take you home. Do not bring small children on day of procedure. Your escort must drive you to and from the hospital. Do not ride the bus. 12. If you are under 18 years of age, your mother, father, or legal guardian must come to the clinic with you. Female patients must have a negative test result from our lab in the system. 13. Do not wear: nail portuguese, lipstick, heavy makeup, contact lenses, jewelry, wigs. Do wear: loose clothes with short sleeves, long pants, shoes (no high heals). 14. Please call our office to cancel your appointment if you feel sick. Dental extraction Instructions Biting on Gauze to Control Bleeding Bleeding may occur for some time after you extraction. In most cases this bleeding can be easily controlled by placing a piece of clean gauze DIRECTLY over the empty tooth socket. Then make sure that you bite firmly on this gauze for 30 to 60 minutes. Use the gauze we supplied to you in the bag. Wash your hands with soap and water before touching the gauze and placing it in your mouth. Place the used gauze from your mouth in a plastic bag and dispose the bag in a trash container. Make sure to wash your hands again when you are done touching the used gauze and before touching anything else. If a small amount of bleeding continues after 45 minutes then repeat these instructions. Sometimes biting a tea bag may be helpful in controlling minor bleeding. Very light bleeding for 2 days is not uncommon. If heavy bleeding is still persistent during normal clinic hours than call the Clinic where the extraction was done to speak with an oral surgeon. [facility] [phone]. HELPING THE HEALING PROCESS AND STOPPING THE BLEEDING FOR THE NEXT 24 HOURS (1 DAY) AFTER THE EXTRACTION: 1. DO NOT RINSE YOUR MOUTH OR SPIT 2. DO NOT DRINK ANY HOT LIQUIDS SUCH SOUP, COFFEE, TEA, HOT CHOCOLATE 2. AVOID HEAVY LIFTING, BENDING OR OTHER STENUOUS EXERCISES 3. SLEEP WITH 2 PILLOWS OR IN A RECLINER CHAIR. KEEPING HEAD ELEVATED WILL REDUCE SWELLING. 4. SUTURE WILL DISSOLVE IN 7-10 DAYS FOR THE NEXT 72 HOURS (3 DAYS) AFTER THE EXTRACTION: 1. DO NOT SMOKE OR DRINK ALCOHOL 2. DO NOT DRINK OR SUCK FROM A STRAW OR ANYTHING ELSEDO NOT DRINK. Stitches may have been placed to help healing. Your surgeon will advise you if you need to return to have them removed. TOOTH BRUSHING (more content not included)... Normal [facility] Progress Noteson 06-20-2021 Bulb Packer Authentication Interface Message Text Attestation with edits by Mariajose Bobby DMD, MD at 06/22/2021 3:41 PM Teaching Physician Note: I saw and evaluated the patient. I personally obtained the ortega and critical portions of the history and physical exam. I reviewed the resident's documentation and discussed the patient with the resident. I agree with the resident's medical decision making as documented in the resident's note. Mariajose Bobby DMD, MD [facility] PATIENT VISIT CHIEF COMPLAINT: [place] Teeth ( mild pain on the left lower side started couple month ago) HISTORY OF PRESENT ILLNESS: 21yoF with no sig pmhx presents to [facility] clinic as referral for consultation regarding extractions of #1, 16, 17, and 32. Pt endorses waxing and waning pain in indicated teeth that limits ability to eat and brush. Pt is anxious for procedure and requests sedation. Pt denies fever, chills, night sweats, dysphagia, difficulty breathing, nausea, and vomiting. PAST MEDICAL HISTORY: 21 yrs old White female No past medical history on file. There is no problem list on file for this patient. System History Cardiovascular Negative history Pulmonary Negative history Hematologic Negative history Renal Negative history Hepatic Negative history Endocrine Negative history Musculoskeletal Negative history Neurological Negative history Infectious Disease Negative history Psychiatric Negative history Reproductive Negative history MEDICATIONS: No current outpatient medications on file. No current facility-administered medications for this visit. ALLERGIES: Patient has no allergy information on record. SURGICAL HX: No past surgical history on file. SOCIAL HX: Tobacco: Never CLINICAL EXAMINATION Extraoral examination: No sign of infection, redness or tenderness to palpation. No facial asymmetry nor swelling No appreciable lymphadenopathy No popping, clicking or crepitus of TMJs bilaterally, No tenderness to palpation of temporalis and masseter Asymptomatic function Range of motion within normal limits No facial numbness Intraoral examination: No sign of infection, redness Mucosa moist and pink Oropharynx clear No pathological soft lesions appreciated Oral cancer screening negative Occlusion stable with no step off Oral hygiene is good #17 and #32 are ttp RADIOGRAPHIC INTERPRETATION: [employer] Film taken on 06/20/2021, #1 - Distoangular, CBI, abutt maxillary sinus #16 mesioangular CBI abutt maxillary sinus #17 mesioangular CBI abutt JAMI #32 mesioangular CBI abutt JAMI DIAGNOSIS: Abnormal tooth eruption [[id number]] Impacted wisdom teeth TREATMENT: Exam, Panoramic x-ray, Awaiting Insurance authorization. PLAN: Surgical extractions #'s 1,16,17,32 and with GA in clinic due to impaction of indicated teeth and pt's dental anxiety. Emma Izquierdo DDS Normal [facility] Bulb Packer Authentication Interface Message Text Normal [facility] ELBOW LEFT 2 [facility] 8 [facility] 2 [facility] [address] [place] [id number] Patient Name: CASI MOREIRA : 2000Sex: FAge: Race: WhiteMRN: [id number]. Location: 84Patient Status: Date: 10/15/2017 10:10:00 AMCompleted Date: 10/15/2017 10:10 AMRequesting Provider: JEOVANNY ANGEL Attending Provider: Report Copy To: Signs & Symptoms: S52.125D Nondisp fx of head of l rad, subs for clos fx w routn heal [id number]: AthenaComments: , , , Ordering Provider - JEOVANNY ANGEL MD , Exam: ELBOW LEFT 2 VWSAccession #: [id number] ELB OW LEFT 2 VWS 10/15/2017 10:10 AM EDT SIGNS AND SYMPTOMS: S52.125D Nondisp fx of head of l rad, subs for clos fx w routn heal I10 TECHNOLOGIST COMMENTS: ortho follow/up fractured left elbow 07/2017 QUESTION FOR THE RADIOLOGIST: , , , Ordering Provider - JEOVANNY ANGEL MD , PROTOCOL: AP(PA) and Lateral views were obtained. COMPARISON: July 31, 2017 FINDINGS: Soft tissues:Tiny bony heterotopic ossifications inferior to the medial epicondyle, possibly common flexor tendinitis versus old injury Bones:Healing radial head and neck fracture in good alignment Joints:No significant effusion IMPRESSION: Healing radial head and neck fracture Electronically signed by:Anjel Bhatt. Transcribed by: [email or web address], User Resident: Electronically Signed by: ANJEL BHATT @ 10/15/2017 12:41 PM Normal [facility] Comment on above: Order Comment: , , = ========= , Ordering Provider - JEOVANNY ANGEL MD , 3D CT UPPER EXTREMITY WO CON TRAST LEFTon 08-19-[address] UPPER EXTREMITY WO CONTRAST LEFT [facility] [address] [place] [address] Patient Name: CASI MOREIRA : 2000Sex: FAge: Race: WhiteMRN: [id number]. Location: 84Patient Status: OVisit #: [id number] Date: 08/19/2017 8:30:00 AMCompleted Date: 08/19/2017 10:36 AMRequesting Provider: ORION SPRINGER Attending Provider: ORION SPRINGER Report Copy To: ADAN PATRICK Signs & Symptoms: S52.122A Disp fx of head of left radius, init for clos fx [id number]: Krissy no precert necessary return to clinicComments: , , left elbow radial head fracture , , , Ordering Provider Kasandra SPRINGER MD , Rendering Provider - ORION SPRINGER MD , Exam: 3D CT UPPER EXTREMITY WO CONTRAST LEFTAccession #: [id number] 3D CT UPPER EXTREMITY WO CONTRAST LEFT 08/19/2017 10:36 AM EDT SIGNS AND SYMPTOMS: S52.122A Disp fx of head of left radius, init for clos fx I10 TECHNOLOGIST COMMENTS:pain left elbow s/p softball injury QUESTION FOR THE RADIOLOGIST: , , left elbow radial head fracture , , , Ordering Provider - ORION SPRINGER MD , Rendering Provider - ORION SPRINGER MD , PROTOCOL: Axial CT images of the extremity were obtained without IV contrast. TECHNIQUE: Multidetector CT axial slices of the left elbow were obtained without IV contrast. Multiplanar reformats, MIP, volume rendered 3-D images were generated on a separate workstation and reviewed to further define anatomy and possible pathology. COMPARISON: Plain film of July 31, 2017 shows slightly comminuted intra-articular radial head fracture with relatively little displacement along the articular surface FINDINGS: Slightly comminuted fracture of the anterior third radial head with impaction along the neck. Articular alignment shows less than 1 mm offset. Joint cavity shows effusion with at least one 2 x 1 mm loose body which has migrated posteriorly. Medial epicondylar heterotopic ossifications. Soft tissues intact. IMPRESSION: 1. Slightly comminuted fracture of the anterior third radial head with impaction along the radial neck2. Articular alignment shows less than 1 mm offset3. Joint effusion with one or two tiny loose bodies Electronically signed by:Anjel Bhatt. Transcribed by: [email or web address], User Resident: Electronically Signed by: ANJEL BHATT @ 08/19/2017 10:57 AM Normal [facility] Comment on above: Order Comment: , , l eft elbow radial head fracture , , , Ordering Provider - ORION SPRINGER MD , Rendering Provider - ORION SPRINGER MD , WRIST LEFT 3 [facility] 8 WRIST LEFT 3 S [facility] [address] [place] [address] Patient Name: CASI MOREIRA : 2000Sex: FAge: Race: WhiteMRN: [id number]. Location: 84Patient Status: OVisit #: [id number] Date: 08/19/2017 10:55:00 AMCompleted Date: 08/19/2017 10:52 AMRequesting Provider: ORION SPRINGER Attending Provider: ORION SPRINGER Report Copy To: Signs & Symptoms: M25.532 Pain in left wrist [id number]: AthenaComments: , , , Ordering Provider - ORION SPRINGER MD , Rendering Provider - ORION SPRINGER MD , Exam: WRIST LEFT 3 VWSAccession #: [id number] WRI ST LEFT 3 VWS 08/19/2017 10:54 AM EDT SIGNS AND SYMPTOMS: M25.532 Pain in left wrist I10 TECHNOLOGIST COMMENTS: softball injury to left wrist bruising on anterior side pain all over QUESTION FOR THE RADIOLOGIST: , , , Ordering Reina SPRINGER MD , Rendering Provider Kasandra SPRINGER MD , PROTOCOL: AP,Lateral and Oblique views were obtained. COMPARISON: July 31, 2017 FINDINGS: Soft tissues:No foreign body Bones:Normal alignment Joints:Maintained IMPRESSION: No bony abnormality Electronically signed by:Anjel Bhatt. Transcribed by: [email or web address], User Resident: Electronically Signed by: ANJEL BHATT @ 08/19/2017 11:47 AM Normal [facility] Comment on above: Order Comment: , , = ========= , Ordering Reina SPRINGER MD , Rendering Reina SPRINGER MD , Vital Signs Date Time Vital Sign Value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
[2024-04-07 16:27] LABS: BOX Test Reference Lab UNITY; BOX Test Sent Out UNITY
[2024-04-07 16:30] LABS: Basophils Percent Auto 0.5 % (0.2-2.0); Eosinophils Percent Auto 0.5 % (0.9-7.0); Hematocrit 36.6 % (36.0-48.0); Hemoglobin 11.9 g/dL (12.0-16.0); Immature Granulocytes Abs Auto 0.03 10^3/uL (0.00-0.03); Immature Granulocytes Pct Auto 0.3 % (0.0-0.5); Lymphocytes Absolute Auto 1.5 10^3/uL (1.2-3.8); Lymphocytes Percent Auto 17.1 % (20.5-60.0); Mean Corpuscular HGB Conc 32.5 g/dL (29.9-35.2); Mean Corpuscular Hemoglobin 26.6 pg (26.7-34.0); Mean Corpuscular Volume 81.9 fL (81.0-99.0); Mean Platelet Volume 11.4 fL (9.5-13.5); Monocytes Absolute Auto 0.7 10^3/uL (0.3-0.8); Monocytes Percent Auto 7.4 % (1.7-12.0); Neutrophils Absolute Auto 6.5 10^3/uL (1.4-6.5); Neutrophils Percent Auto 74.2 % (43.0-75.0); Platelet Count 229 10^3/uL (150-450); Red Blood Count 4.47 10^6/uL (4.20-5.40); Red Cell Distribution Width 14.5 % (11.0-15.0); White Blood Count 8.8 10^3/uL (4.0-11.0)
[2024-04-07 16:34] LABS: Amphetamine Screen Urine NEGATIVE (NEGATIVE); Barbiturates Screen Urine NEGATIVE (NEGATIVE); Benzodiazepines Screen Urine NEGATIVE (NEGATIVE); Buprenorphine Screen Urine NEGATIVE (NEGATIVE); Cannabinoid Screen Urine NEGATIVE (NEGATIVE); Cocaine Screen Urine NEGATIVE (NEGATIVE); Methadone Screen Urine NEGATIVE (NEGATIVE); Methamphetamines Screen Urine NEGATIVE (NEGATIVE); Opiate Screen Urine NEGATIVE (NEGATIVE); Oxycodone Screen Urine NEGATIVE (NEGATIVE); Phencyclidine Screen Urine NEGATIVE (NEGATIVE); Tricyclic Antidepressant Urine NEGATIVE (NEGATIVE)
[2024-04-07 17:10] LABS: Estimated Average Glucose 100 mg/dL; Glycohemoglobin A1C 5.1 % (4.5-6.2)
[2024-04-09 07:10] LABS: HBsAg Screen Negative (Negative); HCV Ab Non Reactive (Non Reactive); HIV Ab/p24 Ag Screen Non Reactive (Non Reactive)
[2024-04-09 11:10] LABS: Rapid Plasma Reagin, Quant Non Reactive titer (NonRea<1:1)
[2024-04-09 12:10] LABS: Rubella Antibodies, IgG 1.11 index (Immune >0.99)
== END 2024-04-07 15:55 | disposition home or self-care (01) ==
LOC: LAB 15:54
PROVIDERS: Visit Provider Obstetrics & Gynecology
DX: Z34.01 Encounter for supervision of normal first pregnancy, first trimester (principal); Z36.0 Encounter for antenatal screening for chromosomal anomalies; N92.6 Irregular menstruation, unspecified
CPT/HCPCS: 36415; 80307; 83036; 85025; 86592; 86762; 86803; 86850; 86900; 86901; 87086; 87340; 87389

== ENCOUNTER 2024-07-09 21:27 | Emergency (ER) | payer OTHER, SELFPAY ==
[2024-07-09 21:36] VITALS: BP 118/79; PULSE 98; TEMP 37.4; O2SAT 97; BMI 34.7
--- OUTSIDE RECORDS SUMMARY | 2024-07-09 21:36 | XMS_ITS | CCD ---
Author Organization [facility] Care Team Providers Care Account Executive [facility] Name Role Phone PHYSICIAN, DEFAULT Unavailable Unavailable [...] Unavailable JORGITO, DR SNYDER Attending Unavailable FAWWAD, SELBY H Primary Care Unavailable JORGITO, DR SNYDER Admitting Unavailable JORGITO, DR SNYDER Admitting Unavailable FAWWAD, SELBY H Primary Care Unavailable JORGITO, DR SNYDER Consulting Unavailable JORGITO, DR SNYDER Attending Unavailable JORGITO, DR SNYDER Admitting Unavailable FAWWAD, SELBY H Primary Care Unavailable AVALON, DR SYDNEE Stewart Consulting Unavailable JORGITO, DR SNYDER Attending Unavailable JORGITO, DR SNYDER Consulting Unavailable JORGITO, DR SNYDER Attending Unavailable JORGITO, DR SNYDER Admitting Unavailable JORGITO, DR SNYDER Consulting Unavailable JORGITO, DR SNYDER Primary Care Unavailable JORGITO, DR SNYDER Attending Unavailable JORGITO, DR SNYDER Admitting Unavailable FAWWAD, SELBY H Primary Care Unavailable AVALON, DR SYDNEE Stewart Consulting Unavailable JORGITO, DR SNYDER Consulting Unavailable FAWWAD, SELBY H Primary Care Unavailable JORGITO, DR SNYDER Consulting Unavailable JORGITO, DR SNYDER Attending Unavailable JORGITO, DR SNYDER Admitting Unavailable JORGITO, DR SNYDER Attending Unavailable JORGITO, DR SNYDER Admitting Unavailable FAYESENIA, [facility] Primary Care Unavailable JORGITO, DR SNYDER Consulting Unavailable JORGITO, DR SNYDER Attending Unavailable FAYESENIA, [facility] Primary Care Unavailable JORGITO, DR SNYDER Admitting Unavailable JORGITO, DR SNYDER Consulting Unavailable ZIEBER, DR ANA ROSA Bhatia Consulting Unavailable JORGITO, DR SNYDER Attending Unavailable JORGITO, DR SNYDER Admitting Unavailable FAWWAD, [facility] Primary Care Unavailable JORGITO, DR SNYDER Consulting Unavailable GEMBUS, SOFIA Consulting Unavailable JORGITO, DR SNYDER Procedure Practitioner Unavailab CHANDNI Rogers Attending Unavailable CHANDNI JORDAN Admitting Unavailable FAWWAD, [facility] Primary Care Unavailable CHANDNI JORDAN Consulting Unavailable HAHN, CHRIS Attending Unavailable ROMI MATTHEWS Referring Unavailable HAHN, CHRIS Admitting Unavailable MOSLIM, MAITHAM Consulting Unavailable DAO [place] Consulting Unavailable JIM MAGED Consulting Unavailable NO PCP, NO PCP Primary Care Unavailable KEM GHOTRA Attending Unavailable NO PCP, NO PCP Primary Care Unavailable JUN MEDINA Attending Unavailable NO PCP, NO PCP Primary Care Unavailable JUAN ZUNIGA Attending Unavailable Hannah SEE, [facility] Primary Care Provider [phone] Loreto Gee Unavailable LORETO CARNEY Attending Unavailable LORETO CARNEY Referring Unavailable LORETO CARNEY Attending Unavailable RODNEY BULL Attending Unavailable Medications Current Medications Medication Drug Class(es) Dates Sig (Normalized) Sig (Original) MV & Min w/FA-DHA ( Gummies) 0.18-25 MG chewable tablet (9 sources) Start: 04-02-2024 End: 04-02-2025 MV & Min w/FA-DHA ( Gummies) 0.18-25 MG chewable tablet Indications: Missed menses , , unspecified gestational age , Encounter for supervision of normal first in first trimester Chew 1 tablet Daily 30 tablet 11 04/02/2024 04/02/2025 Active terconazole 4 mg/ml vaginal cream (3 sources) Azole Antifungal Start: 06-03-2024 End: 06-10-2024 terconazole (Terazol 7) 0.4 % vaginal cream Indications: Vaginal discharge Insert 1 applicator into the vagina at bedtime for 7 days 45 g 06/03/2024 06/10/2024 Active Completed/Discontinued Medications Medication Drug Class(es) Dates [...] fracture with routine healing] Onset: 08-19-2017 Episodic Immunizations and screening for infectious disease (4 sources) Encounter for screening for infections with a predominantly sexual mode of transmission; Translations: [Contact with and (suspected) exposure to infections with a predominantly sexual mode of transmission] Onset: 09-13-2021 06-03-2024 Episodic Menstrual disorders (5 sources) Irregular menstruation, [...] 3RD TRI UNS] Onset: 02-09-2022 Episodic Other female genital disorders (2 sources) Vaginal discharge; Translations: [Other specified noninflammatory disorders of vagina] 06-03-2024 Episodic Other non-traumatic joint disorders (1 source) Loose body in left elbow; Translations: [LOOSE BODY IN LEFT ELBOW] Onset: 08-19-2017 Chronic Other non-traumatic joint disorders (2 sources) Effusion, left elbow; Translations: [Pain in left wrist] Onset: 08-19-2017 Episodic Other nutritional; endocrine; and metabolic disorders (1 source) Obesity, unspecified; Translations: [OBESITY UNSPECIFIED] Onset: 04-06-2022 Chronic Other and delivery including normal (13 sources) Encounter for routine follow-up; Translations: [Single live ] Onset: 09-13-2021 Episodic Other screening for suspected conditions (not mental disorders or infectious disease) (19 sources) Encounter for screening for Streptococcus B; [...] WEEKS GESTATION OF ] Onset: 02-14-2022 Episodic Residual codes; unclassified (2 sources) Gestation period, 14 weeks; Translations: [14 weeks gestation of ] 2024 Episodic Residual codes; unclassified (2 sources) Gestation period, 18 weeks; Translations: [18 weeks gestation of ] 06-03-2024 Episodic Unclassified (2 sources) Unknown / UNK(Unknown) [...] Translations: [UNSPECIFIED ABDOMINAL PAIN] Onset: 07-24-2021 Episodic Other complications of (1 source) Other [...] Test Name Value Interpretation Reference Range Facility RECURRENT VAGINITIS (HTRX)on 06-05-2024 ATOPOBIUM VAGINAE 0 [facility] ATOPOBIUM VAGINAE Not detected [facility] BVAB 2,3 (BACTERIAL VAGINOSIS ASSOCIATED BACTERIA 2, 3); MOBILUNCUS SPP 0 [facility] BVAB 2,3 (BACTERIAL VAGINOSIS ASSOCIATED BACTERIA 2, 3); MOBILUNCUS SPP Not detected [facility] ARMINDA ALBICANS, PARAPSILOSIS, TROPICALIS 28.743 Abnormal [facility] ARMINDA ALBICANS, PARAPSILOSIS, TROPICALIS Detected Abnormal [facility] ARMINDA GLABRATA 0 [facility] lthcare ARMINDA GLABRATA [facility]USEI [facility] KRUSEI Not [facility] CHLAMYDIA TRACHOMATIS 0 [facility] CHLAMYDIA TRACHOMATIS Not detected [facility] GARDNERELLA VAGINALIS 0 [facility] GARDNERELLA VAGINALIS Not detected [facility] Interpretation and review of laboratory results Abnormal [facility] MEGASPHAERA (TYPES 1, 2) 0 [facility] MEGASPHAERA (TYPES 1, 2) Not detected [facility] MYCOPLASMA GENITALIUM 0 [facility] MYCOPLASMA GENITALIUM Not detected [facility] NEISSERIA GONORRHOEAE 0 [facility] NEISSERIA GONORRHOEAE Not detected [facility] TRICHOMONAS VAGINALIS 0 [facility] TRICHOMONAS VAGINALIS Not detected [facility] US OB 14+ WEEKS ANATOMY SCAN on 06-03-2024 US OB 14+ WEEKS ANATOMY SCAN EXAM: US OB 14+ WEEKS ANATOMY SCAN HISTORY: anatomy. TECHNIQUE: Two-dimensional transabdominal grayscale ultrasound imaging of the pelvis was performed. FINDINGS: Gestation: Single Presentation: Breech Cardiac Activity: 162 beats per minute Placental Location: Anterior with no sonographic abnormalities identified. Distance from Placental Tip to Cervix: 6.1 cm Cervical Length: 4.0 cm Amniotic Fluid: Appears adequate MEASUREMENTS: BPD: 4.7 cm EGA: 20 weeks 1 days HC: 18.0 cm EGA: 20 weeks 3 days AC: 15.8 cm EGA: 21 weeks 0 days FL: 3.7 cm EGA: 21 weeks 5 days HC/AC Ratio: 1.14 The gestational age by today's ultrasound is 20 weeks 6 days (+/- 10 days gestation). Estimated Weight: 402 grams, +/- 60 grams ( 0 lb 14 oz). Weight Percentile for gestational age: 53 % ANATOMY C-Spine: Unremarkable T-Spine: Unremarkable L-Spine: Unremarkable Sacrum: Unremarkable Four Chamber Heart: Unremarkable LVOT: Echogenic foci RVOT: Unremarkable Stomach: Unremarkable Kidneys: Unremarkable Bladder: Unremarkable Diaphragm: Unremarkable Cord insertion: Unremarkable Cord vessels: Three Lateral Ventricles: Unremarkable Cerebellum: Unremarkable Cisterna Magna: Unremarkable Posterior Fossa: Unremarkable Right Femur: Unremarkable Left Femur: Unremarkable Right Tib/Fib: Unremarkable Left Tib/Fib: Unremarkable Right Rad/Ulnar: Unremarkable Left Rad/Ulnar: Unremarkable Right Humerus: Unremarkable Left Humerus: Unremarkable Nose/Lips: Unremarkable Profile: Unremarkable Orbits: Unremarkable IMPRESSION: 1. Single, live intrauterine gestation 21 weeks, 0 days by LMP. Today's ultrasound measurements correlate with a gestational age of 20 weeks 6 days. Estimated weight is 402 grams, +/- 60 grams ( 0 lb 14 oz) which correlates to 53 %. JOSE ANGEL is 11/04/2024. 2. Echogenic focus within the left ventricle. Otherwise, unremarkable anatomy. Electronically Signed:Electronically signed by LOUANN TEJADA II, MD, PHD at 25-Jun-2024 10:35:14 AM [facility] Normal Not Available Comment on above: Order Comment: US OB ANATOMY SINGLE W US OB CERVICAL LENGTH Estimated Date of Delivery: 11/03/24 Gestational Age as of 06/03/2024: 18w1d Urinalysis macro (dipstick) panel (U)on 06-03-2024 Bilirubin, UA Negative Negative - 4(70) +++ mg/dL [facility] Blood, UA Negative Negative - 50 Nishant/mcL [facility] Clarity, UA Cloudy [facility] Color, UA Yellow [facility] Glucose, UA Negative Negative - 1999(110) ++++ mg/dL [facility] Interpretation and review of laboratory results Abnormal [facility] Ketones, UA Negative Negative - 160(16) ++++ mg/dL [facility] Leukocytes, UA Positive Negative - 500+++ Michael/mcL [facility] Comment on above: small Nitrite, UA Negative Negative - Positive [facility] pH, UA 7 5 - 9 [facility] Protein, UA Negative Negative - 1999(20) ++++ mg/dL [facility] Spec Grav, UA 1.025 1 - 1.03 [facility] Urobilinogen, UA 0.2 0.2 - 12 mg/dL [facility] Urinalysis macro (dipstick) panel (U)on 2024 Bilirubin, UA Negative Negative - 4(70) +++ mg/dL [facility] Blood, UA Negative Negative - 50 Nishant/mcL [facility] Clarity, UA Clear [facility] Color, UA Yellow [facility] Glucose, UA Negative Negative - 1999(110) ++++ mg/dL [facility] Interpretation and review of laboratory results Abnormal [facility] Ketones, UA Negative Negative - 160(16) ++++ mg/dL [facility] Leukocytes, UA Positive Negative - 500+++ Michael/mcL [facility] Comment on above: small Nitrite, UA Negative Negative - Positive [facility] pH, UA 7 5 - 9 [facility] Protein, UA Negative Negative - 1999(20) ++++ mg/dL [facility] Spec Grav, UA 1.02 1 - 1.03 [facility] Urobilinogen, UA 0.2 0.2 - 12 mg/dL [facility] e BOX TESTon 04-07-2024 BOX TEST SENT OUT MARIBELL PAUL Jose llanes BOX1 MARIBELL [facility] [employer] BOX2 04/07/24 [facility] e HCG ( test) Ql (U)o n 04-03-2024 Interpretation and review of laboratory results Abnormal [facility] Preg Test, Ur Positive Negative [facility] Urinalysis macro (dipstick) panel (U)on 04-03-2024 Bilirubin, UA Negative Negative - 4(70) +++ mg/dL [facility] Blood, UA Negative Negative - 50 Nishant/mcL [facility] Clarity, UA Clear [facility] re Color, UA Yellow [facility] e Glucose, UA Negative Negative - 1999(110) ++++ mg/dL [facility] Interpretation and review of laboratory results Normal [facility] Ketones, UA Negative Negative - 160(16) ++++ mg/dL [facility] Leukocytes, UA Negative Negative - 500+++ Michael/mcL [facility] Nitrite, UA Negative Negative - Positive [facility] pH, UA 6.5 5 - 9 [facility] Protein, UA Negative Negative - 1999(20) ++++ mg/dL [facility] Spec Grav, UA 1.02 1 - 1.[address] [facility] Urobilinogen, UA 1.0 0.2 - 12 mg/dL [facility] [employer] IGP,APTIMA HPV,AGE GDLNon AGE GDLN ACOG TESTING Note . [facility] Comment on above: TESTS RESULT FLAG UN ITS REF RANGE LAB Clinician Provided Cytology Information Source.............Cervix;Endocervix No. of containers..01 ThinPrep Vial Age Algo ACOG Ana... FLAG LEGEND: L-Low Normal,H-High Normal,LL-Alert Low,HH-Alert High <-Panic Low,>-Panic High,A-Abnormal,AA-Critical Abnormal Performed at: 01 [facility] [address] [place] [address] Crystal Garcia MD, IGP, RFX APTIMA HPV ASCU Note . [facility] Comment on above: TESTS RESULT FLAG UN ITS REF RANGE LAB DIAGNOSIS: 02 NEGATIVE FOR INTRAEPITHELIAL LESION OR MALIGNANCY. Specimen adequacy: 02 Satisfactory for evaluation. No endocervical component is identified. Performed by: Chel Sanon, Supervisor [employer] . 02 Note: Note 02 The Pap smear is a screening test designed to aid in the detection of premalignant and malignant conditions of the uterine cervix. It is not a diagnostic procedure and should not be used as the sole means of detecting cervical cancer. Both false-positive and false-negative reports do occur. Test Methodology: Note 02 This liquid based ThinPrep(R) pap test was screened with the use of an image guided system. . 02 The HPV DNA reflex criteria were not met with this specimen result therefore, no HPV testing was performed. FLAG LEGEND: L-Low Normal,H-High Normal,LL-Alert Low,HH-Alert High <-Panic Low,>-Panic High,A-Abnormal,AA-Critical Abnormal Performed at: [address] [address] Crystal Garcia MD, Performed at: = - [facility] [id number] Campaign Developer: Crystal Garcia MD, Phone: [phone] Performed at: [facility] Lab[address] [id number] Campaign Developer: Crystal Garcia MD, Phone: [phone] BRUSH-SPATULA CERVIX ENDOCERVIX [facility] SARS/FLU A+B/RSV by NAAT/Mol ecularon [...] operators who are performing tests using either idio or [employer] systems and is limited to laboratories that [...] repeat. Fact Sheet for Healthcare Providers: https://www.fda.gov/m edia/535063/download Fact Sheet for Patients: https://www.fda.gov/m edia/341665/download Normal [facility] Comment on above: Performed By: #### C OVFLR #### [facility] ([id number]) [address] [place] [address] STREP PCR THROATon S. pyogenes DNA CLIVE+probe Nom (Unsp spec) STREP PCR THROAT Negative (qualifier value) Streptococcus Group A NOT detected by nucleic acid amplification. Normal [facility] Comment on above: Performed By: #### 4 9610-9 #### [facility] ([id number]) [address], [address] [place] [address] RAPID STREP SCR NURSINGon S. pyogenes Ag EIA Ql (Throat) Positive Abnormal NEG [facility] Comment on above: Performed By: #### 6 556-5 #### [facility] ([id number]) [address] [place] [address] SARS/FLU A+B/RSV by NAAT/Mol ecularon 08-01-2023 SARS/FLU [...] operators who are performing tests using either idio or [employer] systems and is limited to laboratories that [...] repeat. Fact Sheet for Healthcare Providers: https://www.fda.gov/m edia/326960/download Fact Sheet for Patients: https://www.fda.gov/m edia/298937/download Normal [facility] Comment on above: Performed By: #### C OVFLR #### [facility] ([id number]) [address] [place] [address], [place] [address] Basic Metab w/rfx MGon 08-08 Anion gap [Moles/Vol] 11 mmol/L Normal 9-17 [facility] Comment on above: Performed By: #### L IP, BMPX, LIVP, CBC #### [facility] [address] [place] [address] Campaign Developer: Flako Braun MD Calcium [Mass/Vol] 9.0 mg/dL Normal 8.6-10.4 [facility] Comment on above: Performed By: #### L IP, BMPX, LIVP, CBC #### [facility] [address] [place] [address] Campaign Developer: Flako Braun MD Chloride [Moles/Vol] 104 mmol/L Normal 98-107 [facility] Comment on above: Performed By: #### L IP, BMPX, LIVP, CBC #### [facility] [employer] [address] [place] [address] Campaign Developer: Flako Braun MD CO2 [Moles/Vol] 22 mmol/L Normal 20-31 [facility] Comment on above: Performed By: #### L IP, BMPX, LIVP, CBC #### [facility] [address] [place] [address] Campaign Developer: Flako Braun MD Creatinine [Mass/Vol] 0.56 mg/dL Normal 0.50-0.90 [facility] Comment on above: Performed By: #### L IP, BMPX, LIVP, CBC #### [facility] [address] [place] [address] Campaign Developer: Flako Braun MD GFR/1.73 sq M.predicted among non-blacks MDRD (S/P/Bld) [Vol rate/Area] mL/min/{1.73_m2} Normal >60 [facility] Comment on above: Result Comment: These results [...] #### L IP, BMPX, LIVP, CBC #### [employer] [address] [place] [address] Campaign Developer: Flako Braun MD Glucose [Mass/Vol] 81 mg/dL Normal 70-99 [facility] Comment on above: Performed By: #### L IP, BMPX, LIVP, CBC #### [facility] [address] [place] [address] Campaign Developer: Flako Braun MD Potassium [Moles/Vol] 4.0 mmol/L Normal 3.7-5.3 [facility] Comment on above: Performed By: #### L IP, BMPX, LIVP, CBC #### [facility] [address] [place] [address] Campaign Developer: Flako Braun MD Sodium [Moles/Vol] 137 mmol/L Normal 135-144 [facility] Comment on above: Performed By: #### L IP, BMPX, LIVP, CBC #### [employer] [address] [place] [address] Campaign Developer: Flako Braun MD Urea nitrogen [Mass/Vol] 7 mg/dL Normal 6-20 [facility] Comment on above: Performed By: #### L IP, BMPX, LIVP, CBC #### [facility] [address] [place] [address] Campaign Developer: Flako Braun MD CBCon 08-08-2022 Erythrocyte distribution width (RBC) [Ratio] 16.2 % High 11.8-14.4 [facility] Comment on above: Performed By: #### L IP, BMPX, LIVP, CBC #### [employer] [phone] Campaign Developer: Flako Braun MD Hematocrit (Bld) [Volume fraction] 34.4 % Low 36.3-47.1 [facility] Comment on above: Performed By: #### L IP, BMPX, LIVP, CBC #### [address] [address] Campaign Developer: Flako Braun MD Hemoglobin (Bld) [Mass/Vol] 10.6 g/dL Low 11.9-15.1 [facility] Comment on above: Performed By: #### L IP, BMPX, LIVP, CBC #### [address] [address] Campaign Developer: Flako Braun MD MCH (RBC) [Entitic mass] 26.2 pg Normal 25.2-33.5 [facility] Comment on above: Performed By: #### L IP, BMPX, LIVP, CBC #### [place] [address] Campaign Developer: Flako Braun MD MCHC (RBC) [Mass/Vol] 30.8 g/dL Normal 28.4-34.8 [facility] Comment on above: Performed By: #### L IP, BMPX, LIVP, CBC #### [place] [address] Campaign Developer: Flako Braun MD MCV (RBC) [Entitic vol] 85.1 fL Normal 82.6-102.9 [facility] Comment on above: Performed By: #### L IP, BMPX, LIVP, CBC #### [facility] [employer] [address] [place] [address] Campaign Developer: Flako Braun MD NRBC Automated 0.0 per 100 WBC Normal 0.0 [facility] Comment on above: Performed By: #### L IP, BMPX, LIVP, CBC #### [facility] [employer] [facility] [place] [address] Campaign Developer: Flako Braun MD Platelet mean volume (Bld) [Entitic vol] 11.4 fL Normal 8.1-13.5 [facility] Comment on above: Performed By: #### L IP, BMPX, LIVP, CBC #### [address] [address] Campaign Developer: Flako Braun MD Platelets (Bld) [#/Vol] 218 10*3/uL Normal 138-453 [facility] Comment on above: Performed By: #### L IP, BMPX, LIVP, CBC #### [address] [address] Campaign Developer: Flako Braun MD RBC (Bld) [#/Vol] 4.04 10*6/uL Normal 3.95-5.11 [facility] Comment on above: Performed By: #### L IP, BMPX, LIVP, CBC #### [address] [address] Campaign Developer: Flako Braun MD WBC (Bld) [#/Vol] 9.8 10*3/uL Normal 4.5-13.5 [facility] Comment on above: Performed By: #### L IP, BMPX, LIVP, CBC #### [address] [address] Campaign Developer: Flako Braun MD Lipaseon 08-08-2022 Lipase [Catalytic activity/Vol] 20 U/L Normal 13-60 [facility] Comment on above: Performed By: #### L IP, BMPX, LIVP, CBC #### [address] [address] Campaign Developer: Flako Braun MD Liver Profileon 08-08-2022 Albumin [Mass/Vol] 3.5 g/dL Normal 3.5-5.2 [facility] Comment on above: Performed By: #### L IP, BMPX, LIVP, CBC #### [facility] [employer] [address] [place] [address] Campaign Developer: Flako Braun MD Albumin/Glob Ratio 1.4 Normal 1.0-2.5 [facility] Comment on above: Performed By: #### L IP, BMPX, LIVP, CBC #### [facility] [address] [place] [address] Campaign Developer: Flako Braun MD Alkaline Phos 282 U/L High 35-104 [facility] Comment on above: Performed By: #### L IP, BMPX, LIVP, CBC #### [facility] [employer] [address] [place] [address] Campaign Developer: Flako Braun MD ALT [Catalytic activity/Vol] 291 U/L High 5-33 [facility] Comment on above: Performed By: #### L IP, BMPX, LIVP, CBC #### [facility] [employer] [address] [place] [address] Campaign Developer: Flako Braun MD AST [Catalytic activity/Vol] 120 U/L High <32 [facility] Comment on above: Performed By: #### L IP, BMPX, LIVP, CBC #### [facility] [employer] [address] [place] [address] Campaign Developer: Flako Braun MD Bilirubin [Mass/Vol] 1.4 mg/dL High 0.3-1.2 [facility] Comment on above: Performed By: #### L IP, BMPX, LIVP, CBC #### [facility] [address] [place] [address] Campaign Developer: Flako Braun MD Bilirubin, Indirect 0.6 mg/dL Normal 0.0-1.0 [facility] Comment on above: Performed By: #### L IP, BMPX, LIVP, CBC #### [employer] [address] [place] [address] [phone] Campaign Developer: Flako Braun MD Bilirubin.indirect [Mass/Vol] 0.8 mg/dL High <0.3 [facility] Comment on above: Performed By: #### L IP, BMPX, LIVP, CBC #### [employer] [address] [place] [address] [phone] Campaign Developer: Flako Braun MD Protein [Mass/Vol] 6.0 g/dL Low 6.4-8.3 [facility] Comment on above: Performed By: #### L IP, BMPX, LIVP, CBC #### [facility] [address] [place] [address] [phone] Campaign Developer: Flako Braun MD Basic Metab w/rfx MGon 08-07 Creatinine [Mass/Vol] 0.42 mg/dL Low 0.50-0.90 [facility] Comment on above: Result Comment: ICTE VERA SPECIMEN Performed By: #### L IP, BMPX, LIVP, CBC #### [employer] [address] [place] [address] [phone] Campaign Developer: Flako Braun MD GFR/1.73 sq M.predicted among non-blacks MDRD (S/P/Bld) [Vol rate/Area] mL/min/{1.73_m2} Normal >60 [facility] Comment on above: Result Comment: These results [...] #### L IP, BMPX, LIVP, CBC #### [employer] [address] [place] [address] Campaign Developer: Flako Braun MD Anion gap [Moles/Vol] 11 mmol/L Normal 9-17 [facility] Comment on above: Performed By: #### L IP, BMPX, LIVP, CBC #### [facility] [employer] [address] [place] [address] Campaign Developer: Flako Braun MD Calcium [Mass/Vol] 8.8 mg/dL Normal 8.6-10.4 [facility] Comment on above: Performed By: #### L IP, BMPX, LIVP, CBC #### [facility] [employer] [address] [place] [phone] Campaign Developer: Flako Braun MD Chloride [Moles/Vol] 102 mmol/L Normal 98-107 [facility] Comment on above: Performed By: #### L IP, BMPX, LIVP, CBC #### [facility] [facility] [employer] [address] [place] [address] 58628 Campaign Developer: Flako Braun MD CO2 [Moles/Vol] 22 mmol/L Normal 20-31 [facility] Comment on above: Performed By: #### L IP, BMPX, LIVP, CBC #### [facility] [address] [place] [address] 80569 Campaign Developer: Flako Braun MD Glucose [Mass/Vol] 89 mg/dL Normal 70-99 [facility] Comment on above: Performed By: #### L IP, BMPX, LIVP, CBC #### [facility] [address] [place] [address] 51170 Campaign Developer: Flako Braun MD Potassium [Moles/Vol] 4.1 mmol/L Normal 3.7-5.3 [facility] Comment on above: Performed By: #### L IP, BMPX, LIVP, CBC #### [facility] [address] [place] [address] 13862 Campaign Developer: Flako Braun MD Sodium [Moles/Vol] 135 mmol/L Normal 135-144 [facility] Comment on above: Performed By: #### L IP, BMPX, LIVP, CBC #### [facility] [address] [place] [address] 84245 Campaign Developer: Flako Braun MD Urea nitrogen [Mass/Vol] 6 mg/dL Normal 6-20 [facility] Comment on above: Performed By: #### L IP, BMPX, LIVP, CBC #### [facility] [address] [place] [address]14[address] Campaign Developer: Flako Braun MD CBCon 08-07-2022 Erythrocyte distribution width (RBC) [Ratio] 15.9 % High 11.8-14.4 [facility] Comment on above: Performed By: #### L IP, BMPX, LIVP, CBC #### [facility] [address] [place] [address] Campaign Developer: Flako Braun MD Hematocrit (Bld) [Volume fraction] 36.7 % Normal 36.3-47.1 [facility] Comment on above: Performed By: #### L IP, BMPX, LIVP, CBC #### [facility] [address] [place] [address] 39382 Campaign Developer: Flako Braun MD Hemoglobin (Bld) [Mass/Vol] 11.2 g/dL Low 11.9-15.1 [facility] Comment on above: Performed By: #### L IP, BMPX, LIVP, CBC #### [facility] [address] [place] [address] 70763 Campaign Developer: Flako Braun MD MCH (RBC) [Entitic mass] 25.5 pg Normal 25.2-33.5 [facility] Comment on above: Performed By: #### L IP, BMPX, LIVP, CBC #### [facility] [address] [place] [address] Campaign Developer: Flako Braun MD MCHC (RBC) [Mass/Vol] 30.5 g/dL Normal 28.4-34.8 [facility] Comment on above: Performed By: #### L IP, BMPX, LIVP, CBC #### [address] [address] Campaign Developer: Flako Braun MD MCV (RBC) [Entitic vol] 83.6 fL Normal 82.6-102.9 [facility] Comment on above: Performed By: #### L IP, BMPX, LIVP, CBC #### [address] [address] Campaign Developer: Flako Braun MD NRBC Automated 0.0 per 100 WBC Normal 0.0 [facility] Comment on above: Performed By: #### L IP, BMPX, LIVP, CBC #### [address] [address] Campaign Developer: Flako Braun MD Platelet mean volume (Bld) [Entitic vol] 11.2 fL Normal 8.1-13.5 [facility] Comment on above: Performed By: #### L IP, BMPX, LIVP, CBC #### [address] [address] Campaign Developer: Flako Braun MD Platelets (Bld) [#/Vol] 252 10*3/uL Normal 138-453 [facility] Comment on above: Performed By: #### L IP, BMPX, LIVP, CBC #### [address] [address] Campaign Developer: Flako Braun MD RBC (Bld) [#/Vol] 4.39 10*6/uL Normal 3.95-5.11 [facility] Comment on above: Performed By: #### L IP, BMPX, LIVP, CBC #### [facility] [address] [place] [address] 99140 Campaign Developer: Flako Braun MD WBC (Bld) [#/Vol] 13.4 10*3/uL Normal 4.5-13.5 [facility] Comment on above: Performed By: #### L IP, BMPX, LIVP, CBC #### [facility] [address] [place] [address] 48657 Campaign Developer: Flako rBaun MD FLUORO FOR SURGICAL PROCEDUR ESon 08-07-2022 FLUORO FOR SURGICAL PROCEDURES Radiology exam is complete. No Radiologist dictation. Please follow up with ordering provider. Final result Normal [facility] Lipaseon 08-07-2022 Lipase [Catalytic activity/Vol] 11 U/L Low 13-60 [facility] Comment on above: Performed By: #### L IP, BMPX, LIVP, CBC #### [facility] [address] [place] [address] 84659 Campaign Developer: Flako Braun MD Liver Profileon 08-07-2022 Albumin [Mass/Vol] 3.6 g/dL Normal 3.5-5.2 [facility] Comment on above: Performed By: #### L IP, BMPX, LIVP, CBC #### [facility] [address] [place] [address] 90500 Campaign Developer: Flako Braun MD Albumin/Glob Ratio 1.4 Normal 1.0-2.5 [facility] Comment on above: Performed By: #### L IP, BMPX, LIVP, CBC #### [facility] [address] [place] [address] 50699 Campaign Developer: Flako Braun MD Alkaline Phos 307 U/L High 35-104 [facility] Comment on above: Performed By: #### L IP, BMPX, LIVP, CBC #### [facility] [address] [place] [address] 8[address]53 Campaign Developer: Flako Braun MD ALT [Catalytic activity/Vol] 360 U/L High 5-33 [facility] Comment on above: Performed By: #### L IP, BMPX, LIVP, CBC #### [facility] [address] [place] [address] 60948 Campaign Developer: Flako Braun MD AST [Catalytic activity/Vol] 200 U/L High <32 [facility] Comment on above: Performed By: #### L IP, BMPX, LIVP, CBC #### [facility] [address] [place] [address] 64440 Campaign Developer: Flako Braun MD Bilirubin [Mass/Vol] 4.2 mg/dL High 0.3-1.2 [facility] Comment on above: Performed By: #### L IP, BMPX, LIVP, CBC #### [facility] [address] [place] [address] 52708 Campaign Developer: Flako Braun MD Bilirubin, Indirect 0.5 mg/dL Normal 0.0-1.0 [facility] Comment on above: Performed By: #### L IP, BMPX, LIVP, CBC #### [facility] [address] [place] [address] 32707 Campaign Developer: Flako Braun MD Bilirubin.indirect [Mass/Vol] 3.7 mg/dL High <0.3 [facility] Comment on above: Performed By: #### L IP, BMPX, LIVP, CBC #### [facility] [address] [place] [address] 97041 Campaign Developer: Flako Braun MD Protein [Mass/Vol] 6.2 g/dL Low 6.4-8.3 [facility] Comment on above: Performed By: #### L IP, BMPX, LIVP, CBC #### [facility] [address] [place] [address] 70704 Campaign Developer: Flako Braun MD Basic Metab w/rfx MGon 08-06 Anion gap [Moles/Vol] 12 mmol/L Normal -17 [facility] Comment on above: Performed By: #### L IP, BMPX, HCG, SOLEDAD, LIVP, MG ####[facility] [address] [place] [address] Lab Director: Flako Braun MD Calcium [Mass/Vol] 8.7 mg/dL Normal 8.6-10.4 [facility] Comment on above: Performed By: #### L IP, BMPX, HCG, SOLEDAD, LIVP, MG ####[facility] [address] [place] [address] Lab Director: Flako Braun MD Chloride [Moles/Vol] 105 mmol/L Normal 98-107 [facility] Comment on above: Performed By: #### L IP, BMPX, HCG, SOLEDAD, LIVP, MG ####[facility] [address] [place] [address] Lab Director: Flako Braun MD CO2 [Moles/Vol] 19 mmol/L Low 20-31 [facility] Comment on above: Performed By: #### L IP, BMPX, HCG, SOLEDAD, LIVP, MG ####[facility] [address] [place] [address] Lab Director: Flako Braun MD Creatinine [Mass/Vol] 0.34 mg/dL Low 0.50-0.90 [facility] Comment on above: Result Comment: ICTE VERA SPECIMEN Performed By: #### L IP, BMPX, HCG, SOLEDAD, LIVP, MG ####[facility] [address] [place] [address] Lab Director: Flako Braun MD GFR/1.73 sq M.predicted among non-blacks MDRD (S/P/Bld) [Vol rate/Area] mL/min/{1.73_m2} Normal >60 [facility] Comment on above: Result Comment: These results [...] L IP, BMPX, HCG, SOLEDAD, LIVP, MG ####[facility] [address] [place] [address] Lab Director: Flako Braun MD Glucose [Mass/Vol] 84 mg/dL Normal 70-99 [facility] Comment on above: Performed By: #### L IP, BMPX, HCG, SOLEDAD, LIVP, MG ####[facility] [address] [place] [address] Lab Director: Flako Braun MD Potassium [Moles/Vol] 4.4 mmol/L Normal 3.7-5.3 [facility] Comment on above: Result Comment: SPEC IMEN SLIGHTLY HEMOLYZED, RESULTS MAY BE ADVERSELY AFFECTED. Performed By: #### L IP, BMPX, HCG, SOLEDAD, LIVP, MG ####[facility] [address] [place] [address] Lab Director: Flako Braun MD Sodium [Moles/Vol] 136 mmol/L Normal 135-144 [facility] Comment on above: Performed By: #### L IP, BMPX, HCG, SOLEDAD, LIVP, MG ####[facility] [address] [place] [address] Lab Director: Flako Braun MD Urea nitrogen [Mass/Vol] 6 mg/dL Normal 6-20 [facility] Comment on above: Performed By: #### L IP, BMPX, HCG, SOLEDAD, LIVP, MG ####[facility] HospitalSUPRLrwzgixrxdxw14[address] [place] [address] Lab Director: Flako Braun MD CBCon 08-06-2022 Erythrocyte distribution width (RBC) [Ratio] 15.9 % High 11.8-14.4 [facility] Comment on above: Performed By: #### C BC, PT, IOCAL #### [facility] [address] [place] [address] 36980 Campaign Developer: Flako Braun MD Hematocrit (Bld) [Volume fraction] 37.3 % Normal 36.3-47.1 [facility] Comment on above: Performed By: #### C ADELA, PT, IOCAL #### [facility] [address] [place] [address] 77855 Campaign Developer: Flako Braun MD Hemoglobin (Bld) [Mass/Vol] 10.9 g/dL Low 11.9-15.1 [facility] Comment on above: Performed By: #### C BC, PT, IOCAL #### [facility] [address] [place] [address] 01599 Campaign Developer: Flako Braun MD MCH (RBC) [Entitic mass] 25.8 pg Normal 25.2-33.5 [facility] Comment on above: Performed By: #### Janiya CHAPMAN PT, IOCAL #### [facility] [address] [place] [address] 53282 Campaign Developer: Flako Braun MD MCHC (RBC) [Mass/Vol] 29.2 g/dL Normal 28.4-34.8 [facility] Comment on above: Performed By: #### C BC, PT, IOCAL #### [facility] [address] [place] [address] 51686 Campaign Developer: Flako Braun MD MCV (RBC) [Entitic vol] 88.2 fL Normal 82.6-102.9 [facility] Comment on above: Performed By: #### C ADELA PT, IOCAL #### [facility] [place] [address] Campaign Developer: Flako Braun MD NRBC Automated 0.0 per 100 WBC Normal 0.0 [facility] Comment on above: Performed By: #### C BC, PT, IOCAL #### [facility] [address] [place] [address] 46800 Campaign Developer: Flako Braun MD Platelet mean volume (Bld) [Entitic vol] 11.3 fL Normal 8.1-13.5 [facility] Comment on above: Performed By: #### C BC, PT, IOCAL #### [facility] [address] [place] [address] 05313 Campaign Developer: Flako Braun MD Platelets (Bld) [#/Vol] 233 10*3/uL Normal 138-453 [facility] Comment on above: Performed By: #### C BC, PT, IOCAL #### [facility] [address] [place] [address] 75295 Campaign Developer: Flako Braun MD RBC (Bld) [#/Vol] 4.23 10*6/uL Normal 3.95-5.11 [facility] Comment on above: Performed By: #### C BC, PT, IOCAL #### [facility] [address] [place] [address] 28830 Campaign Developer: Flako Braun MD WBC (Bld) [#/Vol] 6.7 10*3/uL Normal 4.5-13.5 [facility] Comment on above: Performed By: #### C BC, PT, IOCAL #### [facility] [address] [place] [address] 76312 Campaign Developer: Flako Braun MD Calcium, Ionicon 08-06-2022 Calcium [Moles/Vol] 1.20 mmol/L Normal 1.13-1.33 [facility] Comment on above: Performed By: #### C BC, PT, IOCAL #### [facility] [address] [place], [place] [phone] Campaign Developer: Flako Braun MD HCG Screen, Bloodon 08-07-19 HCG Screen, Blood Negative Normal NEG [facility] Comment on above: Result Comment: Spec imens with hCG levels near the threshold of the test (25 mIU/mL) may give a negative or indeterminate result. In such cases, another test should be performed with a new specimen in 48-72 hours. If early is suspected clinically in this setting, correlation with quantitative serum b-hCG level is suggested. [facility] has confirmed the use of plasma for this test. This has not been cleared or approved by the U.S. Food and Drug Administration. The FDA has determined that such clearance is not necessary. Performed By: #### L IP, BMPX, HCG, SOLEDAD, LIVP, MG ####[facility] [place] [address] Lab Director: Flako Braun MD Lipaseon 08-06-2022 Lipase [Catalytic activity/Vol] 25 U/L Normal 13-60 [facility] Comment on above: Performed By: #### L IP, BMPX, HCG, SOLEDAD, LIVP, MG ####[facility] [place] [address] Lab Director: Flako Braun MD Liver Profileon 08-06-2022 Albumin [Mass/Vol] 3.5 g/dL Normal 3.5-5.2 [facility] Comment on above: Performed By: #### L IP, BMPX, HCG, SOLEDAD, LIVP, MG ####[facility] [address] [place] [address] Lab Director: Flako Braun MD Albumin/Glob Ratio 1.3 Normal 1.0-2.5 [facility] Comment on above: Performed By: #### L IP, BMPX, HCG, SOLEDAD, LIVP, MG ####[facility] [place], [place] [phone] Director: Flako Braun MD Alkaline Phos 288 U/L High 35-104 [facility] Comment on above: Performed By: #### L IP, BMPX, HCG, SOLEDAD, LIVP, MG ####[facility] [address] [place], [place] [phone] Director: Flako Braun MD ALT [Catalytic activity/Vol] 476 U/L High 5-33 [facility] Comment on above: Performed By: #### L IP, BMPX, HCG, SOLEDAD, LIVP, MG ####[facility] [address] [place], [place] [phone] Director: Flako Braun MD AST [Catalytic activity/Vol] 373 U/L High <32 [facility] Comment on above: Performed By: #### L IP, BMPX, HCG, SOLEDAD, LIVP, MG ####[facility] [address] [place], [place] [phone] Director: Flako Braun MD Bilirubin [Mass/Vol] 4.3 mg/dL High 0.3-1.2 [facility] Comment on above: Performed By: #### L IP, BMPX, HCG, SOLEDAD, LIVP, MG ####[facility] [address] [place], [place] [phone] Director: Flako Braun MD Bilirubin, Indirect 1.0 mg/dL Normal 0.0-1.0 [facility] Comment on above: Performed By: #### L IP, BMPX, HCG, SOLEDAD, LIVP, MG ####[facility] [address] [place], [place] [phone] Director: Flako Braun MD Bilirubin.indirect [Mass/Vol] 3.3 mg/dL High <0.3 [facility] Comment on above: Performed By: #### L IP, BMPX, HCG, SOLEDAD, LIVP, MG ####[facility] [address] [place], [place] [phone] lab Director: Flako Braun MD Protein [Mass/Vol] 6.2 g/dL Low 6.4-8.3 [facility] Comment on above: Performed By: #### L IP, BMPX, HCG, SOLEDAD, LIVP, MG ####[facility] [address] [place], [place] [phone] lab Director: Flako Braun MD MRI ABDOMEN [...] Mendez IV, MD 08/06/22 Final result Normal [facility] Magnesiumon 08-06-2022 Magnesium [Mass/Vol] 1.8 mg/dL Normal 1.6-2.6 [facility] Comment on above: Performed By: #### L IP, BMPX, HCG, SOLEDAD, LIVP, MG ####[facility] [facility] [address] [place] [address] Lab Director: Flako Braun MD PTon 08-06-2022 INR Coag (PPP) [Relative time] 1.7 {INR} Normal [facility] Comment on above: Result Comment: Therapeutic Range: Moderate Anticoagulant Intensity: INR = 2.0-3.0 High Anticoagulant Intensity: INR = 2.5-3.5 Performed By: #### C BC, PT, IOCAL #### [facility] [address] [place] [address] Campaign Developer: Flako Braun MD PT Coag (PPP) [Time] 20.1 s High 11.7-14.9 [facility] Comment on above: Performed By: #### C BC, PT, IOCAL #### [facility] [address] [place] [address] Campaign Developer: Flako Braun MD Phosphorus, Inorg.on 023 Phosphorus, Inorg. 4.2 mg/dL Normal 2.6-4.5 [facility] Comment on above: Performed By: #### L IP, BMPX, HCG, SOLEDAD, LIVP, MG ####[facility] [facility] [address] [place] [address] Lab Director: Flako Braun MD Surgical Pathologyon [...] lesions or periductal lymph nodes are identified. [facility] sections 1c. tm Microscopic Description Microscopic examination performed. SURGICAL PATHOLOGY CONSULTATION Patient Name: CASI MOREIRA [facility] Rec: [id number] Path Number: [id number] [facility] ANATOMIC PATHOLOGY [address] [place] [phone] Normal [facility] Comment on above: Performed By: #### P PPVS ####[facility] [address] [place], [place] [phone] lab Director: Flako Braun MD Type + Screenon 08-06-2022 Type + Screen Sample Expiration 08/09/2022,2359 Arm Band Number BE [id number] ABO/Rh(D) O POSITIVE Antibody Screen NEGATIVE Normal [facility] Comment on above: Performed By: #### T YS ####[facility] [address] [place], [place] [phone] lab Director: Flako Braun MD US GALLBLADDER [...] Trav New DO 08/06/22 Final result Normal [facility] CBC with Diffon 08-05-2022 Abs. Basophil 0.06 k/uL Normal 0.00-0.20 [facility] Comment on above: Performed By: #### C DP, CMPX #### [facility] [address] [place] [address] 69627 Campaign Developer: Flako Braun MD Abs.Imm.Granulocyte 0.03 k/uL Normal 0.00-0.30 [facility] Comment on above: Performed By: #### C DP, CMPX #### [facility] [address] [place] [address] 99856 Campaign Developer: Flako Braun MD Abs.Neutrophil (Seg) 6.18 k/uL Normal 1.80-8.00 [facility] Comment on above: Performed By: #### C DP, CMPX #### [facility] [address] [place] [address] 16710 Campaign Developer: Flako Braun MD Basophils/100 WBC (Bld) 1 % Normal 0-2 [facility] Comment on above: Performed By: #### C DP, CMPX #### [address] [address] Campaign Developer: Flako Braun MD Eosinophils (Bld) [#/Vol] 0.31 10*3/uL Normal 0.00-0.44 [facility] Comment on above: Performed By: #### C DP, CMPX #### [address] [address] Campaign Developer: Flako Braun MD Eosinophils/100 WBC (Bld) 4 % Normal 1-4 [facility] Comment on above: Performed By: #### C DP, CMPX #### [facility] [address] [place] [address] 48403 Campaign Developer: Flako Braun MD Erythrocyte distribution width (RBC) [Ratio] 15.7 % High 11.8-14.4 [facility] Comment on above: Performed By: #### C DP, CMPX #### [address] [address] Campaign Developer: Flako Braun MD Hematocrit (Bld) [Volume fraction] 36.8 % Normal 36.3-47.1 [facility] Comment on above: Performed By: #### C DP, CMPX #### [address] [address] Campaign Developer: Flako Braun MD Hemoglobin (Bld) [Mass/Vol] 11.3 g/dL Low 11.9-15.1 [facility] Comment on above: Performed By: #### C DP, CMPX #### [address] [address] Campaign Developer: Flako Braun MD Immature granulocytes/100 WBC (Bld) 0 % Normal 0 [facility] Comment on above: Performed By: #### C DP, CMPX #### [address] [address] Campaign Developer: Flako Braun MD Lymphocytes (Bld) [#/Vol] 1.28 10*3/uL Normal 1.20-5.20 [facility] Comment on above: Performed By: #### C DP, CMPX #### [address] [address] Campaign Developer: Flako Braun MD Lymphocytes/100 WBC (Bld) 15 % Low 25-45 [facility] Comment on above: Performed By: #### C DP, CMPX #### [address] [address] Campaign Developer: Flako Braun MD MCH (RBC) [Entitic mass] 25.6 pg Normal 25.2-33.5 [facility] Comment on above: Performed By: #### C DP, CMPX #### [place] [address] Campaign Developer: Flako Braun MD MCHC (RBC) [Mass/Vol] 30.7 g/dL Normal 28.4-34.8 [facility] Comment on above: Performed By: #### C DP, CMPX #### [place] [address] Campaign Developer: Flako Braun MD MCV (RBC) [Entitic vol] 83.4 fL Normal 82.6-102.9 [facility] Comment on above: Performed By: #### C DP, CMPX #### [place] [address] Campaign Developer: Flako Braun MD Monocytes (Bld) [#/Vol] 0.87 10*3/uL Normal 0.10-1.40 [facility] Comment on above: Performed By: #### C DP, CMPX #### [address] [address] Campaign Developer: Flako Braun MD Monocytes/100 WBC (Bld) 10 % High 2-8 [facility] Comment on above: Performed By: #### C DP, CMPX #### [place] [address] Campaign Developer: Flako Braun MD Neutrophil (Seg) 70 % High 34-64 [facility] Comment on above: Performed By: #### C DP, CMPX #### [place] [address] Campaign Developer: Flako Braun MD NRBC Automated 0.0 per 100 WBC Normal 0.0 [facility] Comment on above: Performed By: #### C DP, CMPX #### [address] [address] Campaign Developer: Flako Braun MD Platelet mean volume (Bld) [Entitic vol] 11.1 fL Normal 8.1-13.5 [facility] Comment on above: Performed By: #### C DP, CMPX #### [address] [address] Campaign Developer: Flako Braun MD Platelets (Bld) [#/Vol] 238 10*3/uL Normal 138-453 [facility] Comment on above: Performed By: #### C DP, CMPX #### [address] [address] Campaign Developer: Flako Braun MD RBC (Bld) [#/Vol] 4.41 10*6/uL Normal 3.95-5.11 [facility] Comment on above: Performed By: #### C DP, CMPX #### [address] [address] Campaign Developer: Flako Braun MD RBC morphology finding Nom (Bld) ANISOCYTOSIS PRESENT Normal [facility] Comment on above: Performed By: #### C DP, CMPX #### [address] [address] Campaign Developer: Flako Braun MD WBC (Bld) [#/Vol] 8.7 10*3/uL Normal 4.5-13.5 [facility] Comment on above: Performed By: #### C DP, CMPX #### [address] [address] Campaign Developer: Flako Braun MD Comp Metabolic Pr/rfx MGon 0 - Creatinine [Mass/Vol] 0.44 mg/dL Low 0.50-0.90 [facility] Comment on above: Result Comment: ICTE VERA SPECIMEN Performed By: #### C DP, CMPX ####[facility] [place] [address] Lab Director: Flako Braun MD GFR/1.73 sq M.predicted among non-blacks MDRD (S/P/Bld) [Vol rate/Area] mL/min/{1.73_m2} Normal >60 [facility] Comment on above: Result Comment: These results [...] secretion. Performed By: #### C DP, CMPX ####[facility] [address] [place] [address])[phone] Director: Flako Braun MD Albumin [Mass/Vol] 3.7 g/dL Normal 3.5-5.2 [facility] Comment on above: Performed By: #### C DP, CMPX ####[facility] [address] [place] [address] Lab Director: Flako Braun MD Albumin/Glob Ratio 1.4 Normal 1.0-2.5 [facility] Comment on above: Performed By: #### C DP, CMPX ####[facility] [address] [place], [place] [phone] Director: Flako Braun MD Alkaline Phos 297 U/L High 35-104 [facility] Comment on above: Performed By: #### C DP, CMPX ####[facility] [address] [place], [place] [phone] Director: Flako Braun MD ALT [Catalytic activity/Vol] 605 U/L High 5-33 [facility] Comment on above: Performed By: #### C DP, CMPX ####[facility] [address] [place], [place] [phone] Director: Flako Braun MD Anion gap [Moles/Vol] 9 mmol/L Normal 9-17 [facility] Comment on above: Performed By: #### C DP, CMPX ####[facility] [address] [place], [place] [phone] Director: Flako Braun MD AST [Catalytic activity/Vol] 697 U/L High <32 [facility] Comment on above: Performed By: #### C DP, CMPX ####[facility] [address] [place], [place] [phone] Director: Flako Braun MD Bilirubin [Mass/Vol] 3.6 mg/dL High 0.3-1.2 [facility] Comment on above: Performed By: #### C DP, CMPX ####[facility] [address] [place], [place] [phone] Director: Flako Braun MD Calcium [Mass/Vol] 9.0 mg/dL Normal 8.6-10.4 [facility] Comment on above: Performed By: #### C DP, CMPX ####[facility] [address] [place], [place] [phone] Director: Flako Braun MD Chloride [Moles/Vol] 105 mmol/L Normal 98-107 [facility] Comment on above: Performed By: #### C DP, CMPX ####[facility] [address] [place], [place] [phone] Director: Flako Braun MD CO2 [Moles/Vol] 22 mmol/L Normal 20-31 [facility] Comment on above: Performed By: #### C DP, CMPX ####[facility] [address] [place], [place] [phone] Director: Flako Braun MD Glucose [Mass/Vol] 86 mg/dL Normal 70-99 [facility] Comment on above: Performed By: #### C DP, CMPX ####[facility] [address] [place], [place] [address])[phone] Director: Flako Braun MD Potassium [Moles/Vol] 3.9 mmol/L Normal 3.7-5.3 [facility] Comment on above: Performed By: #### C DP, CMPX ####[facility] [address] [place], [place] [address])[phone] Director: Flako Braun MD Protein [Mass/Vol] 6.4 g/dL Normal 6.4-8.3 [facility] Comment on above: Performed By: #### C DP, CMPX ####[address] [address])[phone] Director: Flako Braun MD Sodium [Moles/Vol] 136 mmol/L Normal 135-144 [facility] Comment on above: Performed By: #### C DP, CMPX ####[address] [address])[phone] Director: Flako Braun MD Urea nitrogen [Mass/Vol] 6 mg/dL Normal 6-20 [facility] Comment on above: Performed By: #### C DP, CMPX ####[facility] [address] [place] [address])[phone] Director: Flako Braun MD CBC AUTO DIFFon 03-23-2022 BASO # 0.1 103/ul Normal 0.0-0.1 [facility] Comment on above: Performed By: #### C VDTBH #### [facility] [address] [place], [place] [address] Dr. Remigio Roldan Basophils/100 WBC (Bld) 0.5 % Normal 0.2-2.0 [facility] Comment on above: Performed By: #### C VDTBH #### [facility] [address] [place] [address] [address] Remigio Roldan EO # 0.4 103/ul Normal 0.0-0.7 [facility] Comment on above: Performed By: #### C VDTBH #### [facility] [address] [place] [place] [address] [address] Remigio Roldan Eosinophils/100 WBC (Bld) 2.0 % Normal 0.9-7.0 [facility] Comment on above: Performed By: #### C VDTBH #### [facility] [address] [place] [address] Dr. Remigio Roldan Erythrocyte distribution width (RBC) [Ratio] 14.6 % Normal 11.0-15.0 [facility] Comment on above: Performed By: #### C VDTBH #### [facility] [address] [place] [address] Dr. Rmeigio Roldan Hematocrit (Bld) [Volume fraction] 30.3 % Critically low 36.0-48.0 [facility] Comment on above: Performed By: #### C VDTBH #### [facility] [address] [place] [address] Dr. Remigio Roldan Hemoglobin (Bld) [Mass/Vol] 10.0 g/dL Critically low 12.0-16.0 [facility] Comment on above: Performed By: #### C VDTBH #### [facility] [address] [place] [address] Dr. Remigio Roldan IG # 0.16 10e3/ul Critically high 0.00-0.03 [facility] Comment on above: Performed By: #### C VDTBH #### [facility] [address] [place] [address] Dr. Remigio Roldan IG % 0.8 % Critically high 0.0-0.5 [facility] Comment on above: Performed By: #### C VDTBH #### [facility] [address] [place] [address] Dr. Remigio Roldan LYMPH # 2.8 103/ul Normal 1.2-3.8 [facility] Comment on above: Performed By: #### C VDTBH #### [facility] [address] [place] [address] [address] Remigio Roldan Lymphocytes/100 WBC (Bld) 15.0 % Critically low 20.5-60.0 [facility] Comment on above: Performed By: #### C VDTBH #### [facility] [address] [place] [address] [address] Remigio Roladn MANUAL DIFF REQ NO Normal [facility] Comment on above: Performed By: #### C VDTBH #### [facility] [address] [place] [address] Dr. Remigio Roldan MCH (RBC) [Entitic mass] 26.2 pg Critically low 26.7-34.0 [facility] Comment on above: Performed By: #### C VDTBH #### [facility] [address] [place] [address] Dr. Remigio Roldan MCHC (RBC) [Mass/Vol] 33.0 g/dL Normal 29.9-35.2 [facility] Comment on above: Performed By: #### C VDTBH #### [facility] [address] [place] [address] Dr. Remigio Roldan MCV (RBC) [Entitic vol] 79.5 fL Critically low 81.0-99.0 [facility] Comment on above: Performed By: #### C VDTBH #### [facility] [address] [place] [address] Dr. Remigio Roldan MONO # 1.4 103/ul Critically high 0.3-0.8 [facility] Comment on above: Performed By: #### C VDTBH #### [facility] [address] [place] [address] Dr. Remigio Roldan Monocytes/100 WBC (Bld) 7.1 % Normal 1.7-12.0 [facility] Comment on above: Performed By: #### C VDTBH #### [facility] [address] [place] [address] Dr. Remigio Roldan NEUT # 14.1 103/ul Critically high 1.4-6.5 [facility] Comment on above: Performed By: #### C VDTBH #### [facility] [address] [place] [address] Dr. Remigio Roldan Neutrophils/100 WBC (Bld) 74.6 % Normal 43.0-75.0 [facility] Comment on above: Performed By: #### C VDTBH #### [facility] [address] [place] [address] Dr. Remigio Roldan Platelet mean volume (Bld) [Entitic vol] 10.8 fL Normal 9.5-13.5 [facility] Comment on above: Performed By: #### C VDTBH #### [facility] [address] [place] [address] Dr. Remigio Roldan PLT 213 103/ul Normal 150-450 [facility] Comment on above: Performed By: #### C VDTBH #### [facility] [address] [place] [address] Dr. Remigio Roldan RBC 3.81 106/ul Critically low 4.20-5.40 [facility] Comment on above: Performed By: #### C VDTBH #### [facility] [address] [place] [address] Dr. Remigio Roldan WBC 18.9 103/ul Critically high 4.0-11.0 [facility] Comment on above: Performed By: #### C VDTBH #### [facility] [address] [place] [address] Dr. Remigio Roldan CBC AUTO DIFFon 03-22-2022 BASO # 0.1 103/ul Normal 0.0-0.1 [facility] Comment on above: Performed By: #### R PRQ #### [facility] [address] [place] [address] Dr. Remigio Roldan Basophils/100 WBC (Bld) 0.7 % Normal 0.2-2.0 [facility] Comment on above: Performed By: #### R PRQ #### [facility] [address] [place] [address] Dr. Remigio Roldan EO # 0.4 103/ul Normal 0.0-0.7 [facility] Comment on above: Performed By: #### R PRQ #### [facility] [address] [place] [address] Dr. Remigio Roldan Eosinophils/100 WBC (Bld) 2.7 % Normal 0.9-7.0 [facility] Comment on above: Performed By: #### R PRQ #### [facility] [address] [place] [address] Dr. Remigio Roldan Erythrocyte distribution width (RBC) [Ratio] 14.7 % Normal 11.0-15.0 [facility] Comment on above: Performed By: #### R PRQ #### [facility] [address] [place] [address] Dr. Remigio Roldan Hematocrit (Bld) [Volume fraction] 33.3 % Critically low 36.0-48.0 [facility] Comment on above: Performed By: #### R PRQ #### [facility] [address] [place] [address] Dr. Remigio Roldan Hemoglobin (Bld) [Mass/Vol] 10.9 g/dL Critically low 12.0-16.0 [facility] Comment on above: Performed By: #### R PRQ #### [facility] [address] [place] [address] Dr. Remigio Roldan IG # 0.13 10e3/ul Critically high 0.00-0.03 [facility] Comment on above: Performed By: #### R PRQ #### [facility] [address] [place] [address] Dr. Remigio Roldan IG % 0.8 % Critically high 0.0-0.5 [facility] Comment on above: Performed By: #### R PRQ #### [facility] [address] [place] [address] Dr. Remigio Roldan LYMPH # 2.3 103/ul Normal 1.2-3.8 [facility] Comment on above: Performed By: #### R PRQ #### [facility] [address] [place] [address] Dr. Remigio Roldan Lymphocytes/100 WBC (Bld) 14.9 % Critically low 20.5-60.0 [facility] Comment on above: Performed By: #### R PRQ #### [facility] [address] [place] [address] Dr. Remigio Roldan MANUAL DIFF REQ NO Normal [facility] Comment on above: Performed By: #### R PRQ #### [facility] [address] [place] [address] Dr. Remigio Roldan MCH (RBC) [Entitic mass] 26.1 pg Critically low 26.7-34.0 [facility] Comment on above: Performed By: #### R PRQ #### [facility] [address] [place] [address] Dr. Remigio Roldan MCHC (RBC) [Mass/Vol] 32.7 g/dL Normal 29.9-35.2 [facility] Comment on above: Performed By: #### R PRQ #### [facility] [address] [place] [address] Dr. Remigio Roldan MCV (RBC) [Entitic vol] 79.7 fL Critically low 81.0-99.0 [facility] Comment on above: Performed By: #### R PRQ #### [facility] [address] [place] [address] Dr. Remigio Roldan MONO # 1.1 103/ul Critically high 0.3-0.8 [facility] Comment on above: Performed By: #### R PRQ #### [facility] [address] [place] [address] Dr. Remigio Rodlan Monocytes/100 WBC (Bld) 6.9 % Normal 1.7-12.0 [facility] Comment on above: Performed By: #### R PRQ #### [facility] [address] [place] [address] Dr. Remigio Roldan NEUT # 11.6 103/ul Critically high 1.4-6.[address] [facility] Comment on above: Performed By: #### R PRQ #### [facility] [address] [place] [address] Dr. Remigio Roldan Neutrophils/100 WBC (Bld) 74.0 % Normal 43.0-75.0 [facility] Comment on above: Performed By: #### R PRQ #### [facility] [address] [place] [address] Dr. Remigio Roldan Platelet mean volume (Bld) [Entitic vol] 10.9 fL Normal 9.5-13.5 [facility] Comment on above: Performed By: #### R PRQ #### [facility] [address] [place] [address] Dr. Remigio Roldan PLT 241 103/ul Normal 150-450 [facility] Comment on above: Performed By: #### R PRQ #### [facility] [address] [place] [address] Dr. Remigio Roldan RBC 4.18 106/ul Critically low 4.20-5.40 [facility] Comment on above: Performed By: #### R PRQ #### [facility] [address] [place] [address] Dr. Remigio Roldan WBC 15.7 103/ul Critically high 4.0-11.[address] [facility] Comment on above: Performed By: #### R PRQ #### [facility] [address] [place] [address] Dr. Remigio Roldan Covid-19 PCR ([facility])on SARS-CoV-2 (COVID-19) RNA CLIVE+probe Ql (Unsp spec) Not detected Normal NOT DETECTED [facility] Comment on above: Result Comment: When [...] for this test is supported by the [place] of [employer] and Human Service's declaration that [...] used). Performed By: #### C VDTBH #### [facility] [address] [place] [address] Dr. Remigio Roldan DRUG SCREEN RAPID (URINE)on 03-22-2022 AMP Negative Normal NEGATIVE [facility] Comment on above: Performed By: #### C VDTBH #### [facility] [address] [place] [address] Dr. Remigio Roldan BAR Negative Normal NEGATIVE [facility] Comment on above: Performed By: #### C VDTBH #### [facility] [address] [place] [address] Dr. Remigio Roldan BUP Negative Normal NEGATIVE [facility] Comment on above: Performed By: #### C VDTBH #### [facility] [address] [place] [address] Dr. Remigio Roldan BZO Negative Normal NEGATIVE [facility] Comment on above: Performed By: #### C VDTBH #### [facility] [address] [place] [address] Dr. Remigio Roldan BRYON Negative Normal NEGATIVE [facility] Comment on above: Performed By: #### C VDTBH #### [facility] [address] [place] [address] Dr. Remigio Roldan CUT-OFFS SEE BELOW Normal [facility] Comment on above: Result Comment: AMP [...] ng/mL Performed By: #### C VDTBH #### [facility] [address] [place] [address] Dr. Remigio Roldan DRUG CUT HEADER DRUG CLASS TEST SYSTEM CUT-OFF CONCENTRATIONS ARE FOLLOWS: Normal [facility] Comment on above: Performed By: #### C VDTBH #### [facility] [address] [place] [address] Dr. Remigio Roldan mAMP Negative Normal NEGATIVE [facility] Comment on above: Performed By: #### C VDTBH #### [facility] [address] [place] [address] Dr. Remigio Roldan MTD Negative Normal NEGATIVE [facility] Comment on above: Performed By: #### C VDTBH #### [facility] [address] [place] [address] Dr. Remigio Roldan OPI Negative Normal NEGATIVE [facility] Comment on above: Performed By: #### C VDTBH #### [facility] [address] [place] [address] Dr. Remigio Roldan OXY Negative Normal NEGATIVE [facility] Comment on above: Performed By: #### C VDTBH #### [facility] [address] [place] [address] Dr. Remigio Roldan PCP Negative Normal NEGATIVE [facility] Comment on above: Performed By: #### C VDTBH #### [facility] [address] [place] [address] Dr. Remigio Roldan PPX Negative Normal NEGATIVE [facility] Comment on above: Performed By: #### C VDTBH #### [facility] [address] [place] [address] Dr. Remigio Roldan TCA Negative Normal NEGATIVE [facility] Comment on above: Performed By: #### C VDTBH #### [facility] [address] [place] [address] Dr. Remigio Roldan THC Negative Normal NEGATIVE [facility] Comment on above: Performed By: #### C VDTBH #### [facility] [address] [place] [address] Dr. Remigio Roldan TYPE AND SCREENon 03-22-2022 TYPE AND SCREEN Negative Normal [facility] Comment on above: Performed By: #### R PRQ #### [facility] [address] [place] [place] [address] [address] Remigio Roldan GROUP B STREP CULTUREon 02-20 S. agalactiae Ag Ql (Unsp spec) Culture Observations: NEGATIVE FOR GROUP B STREPTOCOCCUS. Normal [facility] Comment on above: Performed By: #### R PRQ #### [facility] [address] [place] [address] [address] Remigio Roldan US PREG GROWTHon 02-09-2022 [...] by: SYDNEE OBREGON Date: 2022-02-09 18:38 Normal [facility] GLUCOSE - 1HRon 12-16-2021 Glucose [Mass/Vol] 93 mg/dL Normal 74-106 [facility] Comment on above: Performed By: #### C VDTBH #### [facility] [address] [place] [address] Dr. Remigio Roldan HEMOGRAM AND PLATELon 2021 Hematocrit (Bld) [Volume fraction] 36.3 % Normal 36.0-48.0 [facility] Comment on above: Performed By: #### R PRQ #### [facility] [address] [place] [address] Dr. Remigio Roldan Hemoglobin (Bld) [Mass/Vol] 11.8 g/dL Critically low 12.0-16.0 [facility] Comment on above: Performed By: #### R PRQ #### [facility] [address] [place] [address] Dr. Remigio Roldan MCH (RBC) [Entitic mass] 28.2 pg Normal 26.7-34.0 [facility] Comment on above: Performed By: #### R PRQ #### [facility] [address] [place] [address] Dr. Remigio Roldan MCHC (RBC) [Mass/Vol] 32.5 g/dL Normal 29.9-35.2 [facility] Comment on above: Performed By: #### R PRQ #### [facility] [address] [place] [address] Dr. Remigio Roldan MCV (RBC) [Entitic vol] 86.6 fL Normal 81.0-99.0 [facility] Comment on above: Performed By: #### R PRQ #### [facility] [address] [place] [address] Dr. Remigio Roldan PLT 238 103/ul Normal 150-450 [facility] Comment on above: Performed By: #### R PRQ #### [facility] [address] [place] [address] Dr. Remiigo Roldan RBC 4.19 106/ul Critically low 4.20-5.40 [facility] Comment on above: Performed By: #### R PRQ #### [facility] [address] [place] [address] Dr. Remigio Roldan WBC 14.1 103/ul Critically high 4.0-11.[address] [facility] Comment on above: Performed By: #### R PRQ #### [facility] [address] [place] [address] Dr. Remigio Roldan US PREG ANATOMY SINGLEon [...] by: SYDNEE OBREGON Date: 2021-11-09 16:07 Normal [facility] CHLAMYDIA/GONOCOCCUS CLIVE (SW AB/URINE/PAPon 11-03-2021 Chlamydia trachomatis, CLIVE Negative Normal Negative [facility] Comment on above: Performed By: #### C VDTBH #### [facility] [address] [place] [address] Dr. Remigio Roldan Neisseria gonorrhoeae, CLIVE Negative Normal Negative [facility] Comment on above: Performed By: #### C VDTBH #### [facility] [address] [place] [address] Dr. Remigio Roldan VAGINITIS/VAGINOSIS DNA PROB Tereso 11-02-2021 Arminda species Positive Abnormal Negative [facility] Comment on above: Performed By: #### V AGINT #### [facility] [address] [place] [address] Dr. Remigio Roldan Gardnerella vaginalis Negative Normal Negative [facility] Comment on above: Performed By: #### V AGINT #### [facility] [address] [place] [address] Dr. Remigio Roldan Trichomonas vaginalis Negative Normal Negative [facility] Comment on above: Performed By: #### V AGINT #### [facility] [address] [place] [address] Dr. Remigio Roldan RUBELLA AB IGGon 09-09-2021 Rubella Antibodies, IgG 0.99 index Critically low Immune >0.99 [facility] Comment on above: Result Comment: A se cond sample should be collected and tested no less than 2-4 weeks. Non-immune <0.90 Equivocal 0.90 - 0.99 Immune >0.99 Performed By: #### R UBIGG #### [facility] [address] [place] [address] Dr. Remigio Roldan HEP B SURFACE ANTIGEN SCREEN on 09-08-2021 HBsAg Screen Negative Normal Negative [facility] Comment on above: Performed By: #### C VDTBH #### [facility] [address] [place] [address] Dr. Remigio Roldan HEPATITIS C VIRUS AB W/ REFL EX QUANTon 09-08-2021 HCV AB <0.1 Normal 0.0-0.9 [facility] Comment on above: Performed By: #### R PRQ #### [facility] [address] [place] [address] Dr. Remigio Roldan Interpretation: Comment Normal [facility] Comment on above: Result Comment: Nega tive Not infected with HCV, unless recent infection is suspected or other evidence exists to indicate HCV infection. Performed By: #### R PRQ #### [facility] [address] [place] [address] Dr. Remigio Roldan HIV 1 AND 2 WITH REFLEXon HIV Screen 4th Generation wRfx Non-Reactive Normal Non Reactive [facility] Comment on above: Result Comment: HIV Negative HIV-1/HIV-2 antibodies and HIV-1 p24 antigen were NOT detected. There is no laboratory evidence of HIV infection. Performed By: #### R PRQ #### [facility] [address] [place] [address] Dr. Remigio Roldan RPR QUANTon 09-08-2021 Rapid Plasma Reagin, Quant Non-Reactive Normal NonRea<1:1 [facility] Comment on above: Result Comment: Plea se Note: This test does not meet current guidelines for screening and diagnosis of syphilis. This test is intended for following treatment response in patients being treated for syphilis infection. To screen for syphilis infection, a reflex cascade that includes both RPR and a treponema-specific assay should be utilized, such as Treponema pallidum (Syphilis) Screening [place] ([id number]) or Rapid Plasma Reagin (RPR) Test With Reflex to Quantitative RPR and Confirmatory Treponema pallidum Antibodies ([id number]). Performed By: #### R PRQ #### [facility] [address] [address] [address] Remigio Roldan CBC AUTO DIFFon 09-07-2021 BASO # 0.1 103/ul Normal 0.0-0.1 [facility] Comment on above: Performed By: #### C BC #### [facility] [address] [place] [address] Dr. Remigio Roldan Basophils/100 WBC (Bld) 0.8 % Normal 0.2-2.0 [facility] Comment on above: Performed By: #### C BC #### [facility] [address] [place] [address] Dr. Remigio Roldan EO # 0.1 103/ul Normal 0.0-0.7 [facility] Comment on above: Performed By: #### C BC #### [facility] [address] [place] [address] Dr. Remigio Roldan Eosinophils/100 WBC (Bld) 0.9 % Normal 0.9-7.0 [facility] Comment on above: Performed By: #### C BC #### [facility] [address] [place] [address] Dr. Remigio Roldan Erythrocyte distribution width (RBC) [Ratio] 13.8 % Normal 11.0-15.0 [facility] Comment on above: Performed By: #### C BC #### [facility] [address] [place] [address] Dr. Remigio Roldan Hematocrit (Bld) [Volume fraction] 39.9 % Normal 36.0-48.0 [facility] Comment on above: Performed By: #### C BC #### [facility] [address] [place] [address] Dr. Remigio Roldan Hemoglobin (Bld) [Mass/Vol] 12.8 g/dL Normal 12.0-16.0 [facility] Comment on above: Performed By: #### C BC #### [facility] [address] [place] [address] Dr. Remigio Roldan IG # 0.02 10e3/ul Normal 0.00-0.03 [facility] Comment on above: Performed By: #### C BC #### [facility] [address] [place] [address] Dr. Remigio Roldan IG % 0.2 % Normal 0.0-0.5 [facility] Comment on above: Performed By: #### C BC #### [facility] [address] [place] [address] Dr. Remigio Roldan LYMPH # 1.4 103/ul Normal 1.2-3.8 [facility] Comment on above: Performed By: #### C BC #### [facility] [address] [place] [address] Dr. Remigio Roldan Lymphocytes/100 WBC (Bld) 16.2 % Critically low 20.5-60.0 [facility] Comment on above: Performed By: #### C BC #### [facility] [address] [place] [address] Dr. Remigio Roldan MANUAL DIFF REQ NO Normal [facility] Comment on above: Performed By: #### C BC #### [facility] [address] [address] [address] Remigio Roldan MCH (RBC) [Entitic mass] 27.1 pg Normal 26.7-34.0 [facility] Comment on above: Performed By: #### C BC #### [facility] [address] [address] [address] Remigio Roldan MCHC (RBC) [Mass/Vol] 32.1 g/dL Normal 29.9-35.2 [facility] Comment on above: Performed By: #### C BC #### [facility] [address] [address] [address] Remigio Roldan MCV (RBC) [Entitic vol] 84.5 fL Normal 81.0-99.0 [facility] Comment on above: Performed By: #### C BC #### [facility] [address] [place] [address] Dr. Remigio Roldan MONO # 0.5 103/ul Normal 0.3-0.8 [facility] Comment on above: Performed By: #### C BC #### [facility] [address] [address] [address] Remigio Roldan Monocytes/100 WBC (Bld) 6.1 % Normal 1.7-12.0 [facility] Comment on above: Performed By: #### C BC #### [facility] [address] [address] [address] Remigio Roldan NEUT # 6.7 103/ul Critically high 1.4-6.5 [facility] Comment on above: Performed By: #### C BC #### [facility] [address] [address] [address] Remigio Roldan Neutrophils/100 WBC (Bld) 75.8 % Critically high 43.0-75.0 [facility] Comment on above: Performed By: #### C BC #### [facility] [address] [place] [address] Dr. Remigio Roldan Platelet mean volume (Bld) [Entitic vol] 10.7 fL Normal 9.5-13.5 [facility] Comment on above: Performed By: #### C BC #### [facility] [address] [address] [address] Remigio Roldan PLT 221 103/ul Normal 150-450 [facility] Comment on above: Performed By: #### C BC #### [facility] [address] [place] [address] Dr. Remigio Roldan RBC 4.72 106/ul Normal 4.20-5.40 [facility] Comment on above: Performed By: #### C BC #### [facility] [address] [place] [address] Dr. Remigio Roldan WBC 8.9 103/ul Normal 4.0-11.0 [facility] Comment on above: Performed By: #### C BC #### [facility] [address] [place] [address] Dr. Remigio Roldan CULTURE URINEon 09-07-2021 CULTURE URINE Culture Observations : LIGHT GROWTH OF MIXED GENITAL GUILLERMINA. NO POTENTIAL PATHOGENS SEEN. Normal [facility] Comment on above: Performed By: #### U RCX #### [facility] [address] [place] [address] Dr. Remigio Roldan GLYCOHEMOGLOBIN A1Con 2021 ADA RECOMMENDATION SEE BELOW Normal [facility] Comment on above: Result Comment: ADA RECOMMENDED LIMIT 4.0 - 6.0 ADA THERAPEUTIC TARGET < 7.0 ACTION SUGGESTED > 7.0 Performed By: #### C VDTBH #### [facility] [address] [place] [address] Dr. Remigio Roldan Glucose [Mass/Vol] 103 mg/dL Normal [facility] Comment on above: Performed By: #### C VDTBH #### [facility] [address] [place] [address] Dr. Remigio Roldan HbA1c (Bld) [Mass fraction] 5.2 % Normal 4.5-6.2 [facility] Comment on above: Performed By: #### C VDTBH #### [facility] [address] [place] [address] Dr. Remigio Roldan FIDELIA BOX TEST PT SEND OUTo n 09-07-2021 SENT TO REF LAB 09/07/2021 Normal [facility] Comment on above: Performed By: #### N BOX #### [facility] [address] [address] [address] Remigio Roldan TYPE AND SCREENon 09-07-2021 TYPE AND SCREEN Negative Normal [facility] Comment on above: Performed By: #### R PRQ #### [facility] [address] [address] [address] 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 Josué! Margaret Normal [facility] [employer] Senior Courtroom Clerk Authentication Interface Message Text Patient needs 60 Min/GA/Main with Kanu Moses~ Margaret Normal [facility] [employer] [facility] CBC AUTO DIFFon 07-24-2021 BASO # 0.1 103/ul Normal 0.0-0.1 [facility] Comment on above: Performed By: #### C VDTBH #### [facility] [address] [address] [address] Remigio Roldan Basophils/100 WBC (Bld) 0.5 % Normal 0.2-2.0 [facility] Comment on above: Performed By: #### C VDTBH #### [facility] [address] [place] [address] Dr. Remigio Roldan EO # 0.2 103/ul Normal 0.0-0.7 [facility] Comment on above: Performed By: #### C VDTBH #### [facility] [address] [place] [address] Dr. Remigio Roldan Eosinophils/100 WBC (Bld) 1.0 % Normal 0.9-7.0 [facility] Comment on above: Performed By: #### C VDTBH #### [facility] [address] [place] [address] Dr. Remigio Roldan Erythrocyte distribution width (RBC) [Ratio] 14.6 % Normal 11.0-15.0 [facility] Comment on above: Performed By: #### C VDTBH #### [facility] [address] [place] [address] Dr. Remigio Roldan Hematocrit (Bld) [Volume fraction] 38.5 % Normal 36.0-48.0 [facility] Comment on above: Performed By: #### C VDTBH #### [facility] [address] [place] [address] Dr. Remigio Roldan Hemoglobin (Bld) [Mass/Vol] 12.5 g/dL Normal 12.0-16.0 [facility] Comment on above: Performed By: #### C VDTBH #### [facility] [address] [place] [address] Dr. Remigio Roldan IG # 0.06 10e3/ul Critically high 0.00-0.03 [facility] Comment on above: Performed By: #### C VDTBH #### [facility] [address] [place] [address] Dr. Remigio Roldan IG % 0.4 % Normal 0.0-0.5 [facility] Comment on above: Performed By: #### C VDTBH #### [facility] [address] [address] [address] Remigio Roldan LYMPH # 2.5 103/ul Normal 1.2-3.8 [facility] Comment on above: Performed By: #### C VDTBH #### [facility] [address] [place] [address] Dr. Remigio Roldan Lymphocytes/100 WBC (Bld) 15.9 % Critically low 20.5-60.0 [facility] Comment on above: Performed By: #### C VDTBH #### [facility] [address] [place] [address] Dr. Remigio Roldan MANUAL DIFF REQ NO Normal [facility] Comment on above: Performed By: #### C VDTBH #### [facility] [address] [place] [address] Dr. Remigio Roldan MCH (RBC) [Entitic mass] 26.9 pg Normal 26.7-34.0 [facility] Comment on above: Performed By: #### C VDTBH #### [facility] [address] [place] [address] Dr. Remigio Roldan MCHC (RBC) [Mass/Vol] 32.5 g/dL Normal 29.9-35.2 [facility] Comment on above: Performed By: #### C VDTBH #### [facility] [address] [place] [address] Dr. Remigio Roldan MCV (RBC) [Entitic vol] 82.8 fL Normal 81.0-99.0 [facility] Comment on above: Performed By: #### C VDTBH #### [facility] [address] [place] [address] Dr. Remigio Roldan MONO # 0.8 103/ul Normal 0.3-0.8 [facility] Comment on above: Performed By: #### C VDTBH #### [facility] [address] [place] [address] Dr. Remigio Roldan Monocytes/100 WBC (Bld) 5.4 % Normal 1.7-12.0 [facility] Comment on above: Performed By: #### C VDTBH #### [facility] [address] [place] [address] Dr. Remigio Roldan NEUT # 11.8 103/ul Critically high 1.4-6.[address] [facility] Comment on above: Performed By: #### C VDTBH #### [facility] [address] [place] [address] Dr. Remigio Roldan Neutrophils/100 WBC (Bld) 76.8 % Critically high 43.0-75.0 [facility] Comment on above: Performed By: #### C VDTBH #### [facility] [address] [place] [address] Dr. Remigio Roldan Platelet mean volume (Bld) [Entitic vol] 10.2 fL Normal 9.5-13.5 [facility] Comment on above: Performed By: #### C VDTBH #### [facility] [address] [place] [address] Dr. Remigio Roldan PLT 292 103/ul Normal 150-450 [facility] Comment on above: Performed By: #### C VDTBH #### [facility] [address] [place] [address] Dr. Remigio Roldan RBC 4.65 106/ul Normal 4.20-5.40 [facility] Comment on above: Performed By: #### C VDTBH #### [facility] [address] [place] [address] Dr. Remigio Roldan WBC 15.4 103/ul Critically high 4.0-11.[address] [facility] Comment on above: Performed By: #### C VDTBH #### [facility] [address] [place] [address] Dr. Remigio Roldan ER URINE PROFILEon 2 Bilirubin Ql (U) Negative Normal NEGATIVE [facility] Comment on above: Performed By: #### E RUR #### [facility] [address] [place] [address] Dr. Remigio Roldan Clarity (U) CLEAR Normal CLEAR [facility] Comment on above: Performed By: #### E RUR #### [facility] [address] [place] [address] Dr. Remigio Roldan Color (U) YELLOW Normal YELLOW [facility] Comment on above: Performed By: #### E RUR #### [facility] [address] [place] [address] Dr. Remigio THOMPSON A micrscopic examination will be performed if indicated. Normal [facility] Comment on above: Performed By: #### E RUR #### [facility] [address] [place] [address] Dr. Remigio Roldan Glucose Ql (U) Negative Normal NEGATIVE [facility] Comment on above: Performed By: #### E RUR #### [facility] [address] [place] [address] Dr. Remigio Roldan Hemoglobin Ql (U) Negative Normal NEGATIVE [facility] Comment on above: Performed By: #### E RUR #### [facility] [address] [place] [address] Dr. Remigio Roldan Ketones Ql (U) Negative Normal NEGATIVE [facility] Comment on above: Performed By: #### E RUR #### [facility] [address] [place] [address] Dr. Remigio Roldan LEUKOCYTES Negative Normal NEGATIVE [facility] Comment on above: Performed By: #### E RUR #### [facility] [address] [place] [address] Dr. Remigio Roldan Nitrite Ql (U) Negative Normal NEGATIVE [facility] Comment on above: Performed By: #### E RUR #### [facility] [address] [place] [address] Dr. Remigio Roldan pH (U) 6.0 [pH] Normal 5-9 [facility] Comment on above: Performed By: #### E RUR #### [facility] [address] [place] [address] Dr. Remigio Roldan SPEC GRAVITY >=1.030 Abnormal 1.005-<=1.025 [facility] Comment on above: Performed By: #### E RUR #### [facility] [address] [place] [address] Dr. Remigio Roldan UA PROTEIN Negative Normal NEGATIVE/ TRACE [facility] Comment on above: Performed By: #### E RUR #### [facility] [address] [place] [address] Dr. Remigio Roldan UR MICRO IND NOT INDICATED Normal [facility] Comment on above: Performed By: #### E RUR #### [facility] [address] [place] [address] Dr. Remigio Roldan Urobilinogen Qn (U) 0.2 {Tereza'U}/dL Normal 0.2 - 1. 0 [facility] Comment on above: Performed By: #### E RUR #### [facility] [address] [place] [address] Dr. Remigio Roldan PREG QUANT HCGon 07-24-2021 HCG QUANT 2263 mIU/mL Normal [facility] Comment on above: Performed By: #### P REGQNT, BMP #### [facility] [address] [place] [address] Dr. Remigio Roldan HCG RANGE SEE BELOW Normal [facility] Comment on above: Result Comment: 5-50 0-1 WEEK 40-300 1-2 WEEKS 100-1,000 2-3 WEEKS 500-6,000 3-4 WEEKS 5,000-200,000 1-2 MONTHS 10,000-100,000 2-3 MONTHS 3,000-50,000 2ND TRIMESTER 1,000-50,000 3RD TRIMESTER Performed By: #### P REGQNT, BMP #### [facility] [address] [place] [address] Dr. Remigio Roldan PROF CHEM 8 (BAS METB)on Anion gap [Moles/Vol] 13.6 mmol/L Normal [facility] Comment on above: Performed By: #### P REGQNT, BMP #### [facility] [address] [place] [address] Dr. Remigio Roldan Calcium [Mass/Vol] 8.6 mg/dL Normal 8.5-10.1 [facility] Comment on above: Performed By: #### P REGQNT, BMP #### [facility] [address] [place] [address] Dr. Remigio Roldan Chloride [Moles/Vol] 101 mmol/L Normal 98-107 [facility] Comment on above: Performed By: #### P REGQNT, BMP #### [facility] [address] [address] [address] Remigio Roldan CO2 [Moles/Vol] 26.0 mmol/L Normal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
--- NOTE | 2024-07-09 21:55 | ED_ITS ---
HPI HPI - General Adult General Stated complaint: Covid 07/09/24 Time Seen by Provider: 07/09/24 21:34 Source: patient Mode of arrival: walk-in Limitations: no limitations History of Present Illness HPI narrative: 24-year-old female who is 23 weeks presents because she was not feeling her baby move around as much as typical. No bleeding or injury. She was at another emergency department today and tested positive for COVID. She was not prescribed any medications. She has had some cough and congestion. Related Data Home Medications ?Medication ?Instructions ?Recorded ?Confirmed acetaminophen 500 mg tablet 1,000 mg PO .q8 PRN fever 07/09/24 07/09/24 (Tylenol Extra Strength) vitamin no.115-iron 29 1 tab PO Q24H 07/09/24 07/09/24 mg-folic acid 1 mg chewable tablet ( 19) Previous Rx's ?Medication ?Instructions ?Recorded azithromycin 250 mg tablet 250 mg PO DAILY 4 days #4 tabs 07/09/24 (Zithromax) Allergies Allergy/AdvReac Type Severity Reaction Status Date / Time No Known Drug Allergies Allergy Verified 07/09/24 21:44 Opioid HPI Opioid Management Most Recent Opioid Data: Ur Phencyclidine Scrn Negative (NEGATIVE) 04/07/24 15:56 03/22 11/12 Review of Systems ROS Narrative A ten point review of systems is negative except as noted above. PFSH PFSH Social History Little interest or pleasure in doing things: not at all Feeling down, depressed, or hopeless: not at all Exam Narrative Exam Narrative: Nurses note and vital signs reviewed and patient is not hypoxic. General: The patient appears well and in no apparent distress. Patient is resting comfortably on cart. She is eating chips when I walk into the room. Skin: Warm, dry, no pallor noted. There is no rash noted. Head: Normocephalic, atraumatic Eye: Normal conjunctiva, no drainage Ears, Nose, Mouth, and Throat: oral mucosa is moist. Nares patent. Cardiovascular: Regular Rate and Rhythm Respiratory: Patient is in no distress, no accessory muscle use, lungs are clear to auscultation, no wheezing, rales or rhonchi Back: non-tender GI: Soft and nontender Musculoskeletal: The patient has no evidence of calf tenderness, no pitting edema, symmetrical pulses noted bilaterally Neurological: A&O, normal speech Psychiatric: Cooperative Constitutional Vital Signs, click to edit/add: Last Vital Signs Temp 99.4 F 07/09/24 21:36 Pulse 98 H 07/09/24 21:36 Resp 16 07/09/24 21:36 BP 118/79 07/09/24 21:36 Pulse Ox 97 07/09/24 21:36 O2 Del Method Room Air 07/09/24 21:36 Course Vital Signs Vital signs: Vital Signs Temperature 99.4 F 07/09/24 21:36 Pulse Rate 98 H 07/09/24 21:36 Respiratory Rate 16 07/09/24 21:36 Blood Pressure 118/79 07/09/24 21:36 Pulse Oximetry 97 07/09/24 21:36 Oxygen Delivery Method Room Air 07/09/24 21:36 Temperature 99.4 F 07/09/24 21:36 Pulse Rate 98 H 07/09/24 21:36 Respiratory Rate 16 07/09/24 21:36 Blood Pressure 118/79 07/09/24 21:36 Pulse Oximetry 97 07/09/24 21:36 Oxygen Delivery Method Room Air 07/09/24 21:36 Medical Decision Making MDM Narrative Medical decision making narrative: The patient is positive for COVID. Physical exam is normal, heart rate is 170. She has no bleeding. She was reassured. I spoke to Dr. Bull and he request that the patient be prescribed Zithromax to prevent secondary infection. We discussed Paxlovid and it is not felt to be indicated at this point. Treatment diagnosis and follow-up were discussed with the patient. Differential Diagnosis Differential Diagnosis: COVID, second trimester Discharge Plan Discharge Clinical Impression: COVID-19 Patient Disposition: Home, Self-Care Time of Disposition Decision: 21:58 Condition: Good Mode of Transportation: Private Vehicle Prescriptions / Home Meds: New azithromycin [Zithromax] 250 mg tablet 250 mg PO DAILY 4 Days Qty: 4 0RF Rx Instructions: start on day 2 of therapy No Action 19 29 mg iron- 1 mg tablet,chewable 1 tab PO Q24H acetaminophen [Tylenol Extra Strength] 500 mg tablet 1,000 mg PO .q8 PRN (Reason: fever) Print Language: Italian Instructions: COVID-19 (Coronavirus Disease 2019) (ED), Face Coverings (Masks) and COVID-19 (ED), How to Recover from COVID-19 at Home (ED) Referrals: Physician,Non-Staff, MD [Primary Care Provider] - 1 week
[2024-07-09] MEDS: AZITHROMYCIN 250 MG TABLET 500 MG PO (22:10)
== END 2024-07-09 22:21 | disposition home or self-care (01) ==
PROVIDERS: Emergency Provider Emergency Medicine
DX: O98.512 Other viral diseases complicating pregnancy, second trimester (principal); U07.1 COVID-19; Z3A.23 23 weeks gestation of pregnancy
CPT/HCPCS: 99283

== ENCOUNTER 2024-08-10 09:06 | Outpatient (OUT) | payer OTHER, SELFPAY ==
[2024-08-10 10:20] LABS: Basophils Absolute Auto 0.1 10^3/uL (0.0-0.1); Basophils Percent Auto 0.5 % (0.2-2.0); Eosinophils Absolute Auto 0.1 10^3/uL (0.0-0.7); Eosinophils Percent Auto 0.7 % (0.9-7.0); Hematocrit 34.5 % (36.0-48.0); Hemoglobin 11.2 g/dL (12.0-16.0); Immature Granulocytes Abs Auto 0.16 10^3/uL (0.00-0.03); Immature Granulocytes Pct Auto 1.1 % (0.0-0.5); Lymphocytes Absolute Auto 1.9 10^3/uL (1.2-3.8); Lymphocytes Percent Auto 12.8 % (20.5-60.0); Mean Corpuscular HGB Conc 32.5 g/dL (29.9-35.2); Mean Corpuscular Hemoglobin 27.9 pg (26.7-34.0); Mean Corpuscular Volume 85.8 fL (81.0-99.0); Monocytes Absolute Auto 0.9 10^3/uL (0.3-0.8); Monocytes Percent Auto 5.7 % (1.7-12.0); Neutrophils Absolute Auto 11.9 10^3/uL (1.4-6.5); Neutrophils Percent Auto 79.2 % (43.0-75.0); Platelet Count 213 10^3/uL (150-450); Red Blood Count 4.02 10^6/uL (4.20-5.40); Red Cell Distribution Width 14.2 % (11.0-15.0)
[2024-08-10 10:50] LABS: Glucose 1 Hour 88 mg/dL (<130)
== END 2024-08-10 09:07 | disposition home or self-care (01) ==
PROVIDERS: Visit Provider Obstetrics & Gynecology
DX: Z13.1 Encounter for screening for diabetes mellitus (principal)
CPT/HCPCS: 36415; 82950; 85025

== ENCOUNTER 2024-08-14 23:02 | Observation (INO) | payer OTHER, SELFPAY ==
[2024-08-14 23:16] VITALS: BP 113/64; PULSE 93
[2024-08-14 23:28] LABS: Bilirubin Urine NEGATIVE (NEGATIVE); Blood Urine NEGATIVE (NEGATIVE); Clarity Urine CLEAR (CLEAR); Color Urine LT. YELLOW (YELLOW); Glucose Urine UA NEGATIVE (NEGATIVE); Ketones Urine NEGATIVE (NEGATIVE); Leukocyte Esterase Urine NEGATIVE (NEGATIVE); Nitrite Urine NEGATIVE (NEGATIVE); Protein Urine NEGATIVE (NEG/TRACE); Urine Microscopic Indicated NO
== END 2024-08-15 00:02 | disposition home or self-care (01) ==
LOC: FBC 23:03
PROVIDERS: Admitting Provider Obstetrics & Gynecology; Visit Provider Obstetrics & Gynecology
DX: O47.03 False labor before 37 completed weeks of gestation, third trimester (principal); Z3A.28 28 weeks gestation of pregnancy
CPT/HCPCS: 59025; 81003; G0378; G0379

== ENCOUNTER 2024-10-06 19:08 | Outpatient (REF) | payer OTHER, SELFPAY | END 2024-10-06 19:09 | disposition home or self-care (01) | LOC: LAB 19:08 | PROVIDERS: Visit Provider Physician Assistant | DX: Z34.93 Encounter for supervision of normal pregnancy, unspecified, third trimester (principal) | CPT/HCPCS: 87081; 87184 ==

== ENCOUNTER 2024-10-27 04:54 | Inpatient (IN) | payer OTHER, SELFPAY ==
--- OUTSIDE RECORDS SUMMARY | 2024-10-20 13:23 | XMS_ITS ---
Author Name Auto Generated Organization OHIP Support Name Relationship Address Phone CARY PASTOR Next of Kin Unknown [phone] CARY PASTOR Next of Kin Unknown [phone] CARY PASTOR Next of Kin Unknown [phone] CARY PASOTR Next of Kin Unknown [phone] CARY PASTOR Next of Kin Unknown [phone] CARY PASTOR Next of Kin Unknown [phone] CARY PASTOR Next of Kin Unknown [phone] CARY PASTOR Next of Kin Unknown [phone] CARY PASTOR Next of Kin Unknown [phone] CARY PASTOR Next of Kin Unknown [phone] NADEEM MOREIRA Next of Kin [address] [facility] [place] [address] + CARY PASTOR Next of Kin Unknown [phone] CARY PASTOR Next of Kin Unknown [phone] CARY PASTOR Next of Kin Unknown [phone] CARY PASTOR Next of Kin Unknown [phone] CARY PASTOR Next of Kin Unknown [phone] CARY PASTOR Next of Kin Unknown Unavailable HARISH NADEEM Next of Kin [address] [place] [address] + NADEEM MOREIRA Next of Kin [address] [facility] [place] [address] + NOT GIVEN [place] [address] [phone] [place] [address] [phone] Care Team Providers Care Automatic Pinsetter Mechanic Name Role Phone NO PCP, NO PCP Primary Care Unavailable JUAN ZUNIGA Attending Unavailable NO PCP, NO PCP Primary Care Unavailable FANY FERRIS Attending Unavailabl e ANGELIKA, VERONICA Attending Unavailable ANGELIKA, VERONICA Referring Unavailable KEVIN, CLAUDIO Attending Unavailable KEVIN, CLAUDIO Attending Unavailable ANGELIKA, VERONICA Attending Unavailable ANGELIKA, VERONICA Attending Unavailable ANGELIKA, VERONICA Attending Unavailable KEVIN, CLAUDIO Attending Unavailable ANGELIKA, VERONICA Attending Unavailable KEVIN, CLAUDIO Attending Unavailable ANGELIKA, VERONICA Attending Unavailable KEVIN, CLAUDIO Attending Unavailable PROBLEMS DATE TYPE CONDITION / CODE ATTENDING STATUS [facility] 07/09/2024 Unknown COVID-19 / U07.1(ICD-10) FANY FERRIS [facility] 07/09/2024 Unknown Cough / FREETEXT(AOF) FANY SALINAS [facility] 11/10/2023 Unknown Acute upper respiratory infection, unspecified / J06.9(ICD-10) JUAN ZUNIGA [facility] 11/10/2023 Unknown Fever / FREETEXT(AOF) JESSICA ZUNIGAA Lucian [facility] 11/10/2023 Unknown Generalized Body Aches / FREETEXT(AOF) JUAN ZUNIGA [facility] 11/10/2023 Unknown dizzy, headache, fever/chills / UNK(Unknown) NADIA JUAN Lucian [facility] PROCEDURES No Procedure Records Found RESULTS US OB FOLLOW UP TRANSABDOMINAL APPROACH Observed: 09/16/2024 2:54 PM Status: F Source: [facility] EPIC Order Comment: US OB SCAN FO R GROWTH Estimated Date of Delivery: 11/03/24 Gestational Age as of 08/25/2024: 30w0d EXAM: US OB FOLLOW UP TRANSA BDOMINAL APPROACH HISTORY: Inconsistent size. COMPARISON: Ob ultrasound 08/19/2024. TECHNIQUE: Two-dimensional transabdominal grayscale ultrasound imaging of the pelvis was performed. FINDINGS: Gestation: Single Presentation: Cephalic Cardiac Activity: 134 beats per minute Placental Location: Anterior with no sonographic abnormalities identified. Amniotic Fluid Index: 14.6 cm MEASUREMENTS: BPD: 8.4 cm EGA: 33 weeks 6 days HC: 30.5 cm EGA: 34 weeks 0 days AC: 29.8 cm EGA: 33 weeks 6 days FL: 6.6 cm EGA: 33 weeks 5 days HC/AC Ratio: 1.02 The gestational age by today's ultrasound is 33 weeks 6 days (+/- 17 days gestation). Estimated Weight: 2279 grams, +/- 342 grams ( 5 lb 0 oz). Weight Percentile for gestational age: 62 % IMPRESSION: 1. Single, live intrauterine gestation 33 weeks, 1 days by LMP. Today's ultrasound measurements correlate with a gestational age of 33 weeks 6 days. Estimated weight is 2279 grams, +/- 342 grams ( 5 lb 0 oz) which correlates to 62 %. JOSE ANGEL is 10/29/2024. Interpreted by: Electronically signed by LOUANN TEJADA II, MD, PHD at 16-Sep-2024 11:19:49 PM [facility] US OB LIMITED 1+ FETUSES Observed: 08/19 2:58 PM Status: F Source: [facility] EPIC Order Comment: US OB INCOMPL ETE ANATOMY Estimated Date of Delivery: 11/03/24 Gestational Age as of 08/11/2024: 28w0d EXAM: US OB LIMITED 1+ FETUS ES HISTORY: Follow up echogenic foci in heart. JOSE ANGEL 11/03/2024. . COMPARISON: U/S Ob 06/23/2024 TECHNIQUE: Two-dimensional transabdominal grayscale ultrasound imaging of the pelvis was performed. FINDINGS: Gestation: Single Presentation: Cephalic Cardiac Activity: 166 beats per minute Placental Location: Anterior with no sonographic abnormalities identified. Distance from Placental Tip to Cervix: Not visualized Cervical Length: Obscured by overlying fetus Amniotic Fluid Index: Not measured, appears visually adequate A left ventricular echogenic focus is again visualized. IMPRESSION: 1. Single, live intrauterine gestation 29 weeks, 1 day by LMP. 2. Left ventricular echogenic focus. Interpreted by: Electronically signed by LOUANN TEJADA II, MD, PHD at 23-Aug-2024 08:54:26 PM [facility] XR CHEST 1 VW Observed: 07/09/2024 9:34 AM Status: COMPLETED Source: [facility] XR CHEST 1 VW Clinical history: Cough and congestion x3 days. Comparisons: None Findings: PA upright chest radiograph obtained. It size and pulmonary vasculature appear within normal limits. Lungs appear clear. There is no pleural effusion nor pneumothorax. IMPRESSION: No evidence for acute cardiopulmonary disease. Finalized by Jacob Villagomez MD on 07/09/2024 9:46 AM SARS/FLU A+B/RSV BY NAAT/MOLECULAR Observed: 07/09/2024 9:08 AM Status: COMPLETED Source: [facility] FLU A PCR Negative (qualifier value) FLU B PCR Negative (qualifier value) RSV by PCR Negative (qualifier value) SARS CoV 2 Detected (qualifier value) NOTE The Xpert Xpress SARS-CoV-2/Flu/RSV [...] operators who are performing tests using either [employer] or [employer] systems and is limited to laboratories that [...] specimen repeat. Fact Sheet for Healthcare Providers: https://www.fda.gov/media/425087/download Fact Sheet for Patients: https://www.fda.gov/media/984497/download Performed By: #### COVFLR ## ## [facility] ([id number]) [address] [place] [address], [place] [address] US OB 14+ WEEKS ANATOMY SCAN Observed: 0 06/03/2024 2:57 PM Status: F Source: [facility] EPIC Order Comment: US OB ANATOMY SINGLE W US OB CERVICAL LENGTH Estimated Date of Delivery: 11/03/24 Gestational Age as of 06/03/2024: 18w1d EXAM: US OB 14+ WEEKS ANATOM Y SCAN HISTORY: anatomy. TECHNIQUE: Two-dimensional transabdominal grayscale [...] II, MD, PHD at 25-Jun-2024 10:35:14 AM [facility] STREP PCR THROAT Observed: 11/11/2023 12:35 AM Status: COMPLETED Source: [facility] STREP PCR THROAT Negative (qualifier value) Streptococcus Group A NOT detected by nucleic acid amplification. Performed By: #### [id number] # ### [facility] ([id number]) [address] [place] [address] [address] [place] [address] SARS/FLU A+B/RSV BY NAAT/MOLECULAR Observed: 11/11/2023 12:32 AM Status: COMPLETED Source: [facility] FLU A PCR Negative (qualifier value) FLU [...] operators who are performing tests using either [employer] or [employer] systems and is limited to laboratories that [...] specimen repeat. Fact Sheet for Healthcare Providers: https://www.fda.gov/media/551473/download Fact Sheet for Patients: https://www.fda.gov/media/334501/download Performed By: #### COVFLR ## ## [facility] ([id number]) [address] [place] [address], [place] [address] ALLERGIES DATE TYPE / CODE NAME / CODE REACTION SEVERITY SOURCE Drug Class/[id number](SNO MED CT) NO KNOWN ALLERGIES [facility] ENCOUNTERS ADMIT/DISCHARGE ACCOUNT NUMBER ADMITTING ENCOUNTER CLASS LOCATION SOURCE 10/20/2024/10/21/19 [id number] Ambulatory Building:[facility] 10/13/2024/10/14/19 25 [id number] Ambulatory Building:[facility] 10/06/2024/10/07/19 25 [id number] Ambulatory Building:[facility] 09/30/2024/10/01/19 25 [id number] Ambulatory Building:[facility] 09/16/2024/09/17/19 25 [id number] Ambulatory Building:[facility] 09/16/2024/09/17/19 [id number] Ambulatory Building:[facility] 08/25/2024/08/26/19 25 [id number] Ambulatory Building:[facility] 08/19/2024/08/20/19 25 [id number] Ambulatory Building:[facility] 08/11/2024/08/12/19 25 [id number] Ambulatory Building:[facility] 07/14/2024/07/15/19 25 [id number] Ambulatory Building:[facility] 07/09/2024/07/10/19 25 [id number] Emergency Building:[facility] _EDRoom: 11Bed: 11 [facility] 06/23/2024/06/24/19 25 [id number] Ambulatory Building:[facility] 06/03/2024/06/03/19 25 [id number] Ambulatory Building:[facility] 05/05/2024/05/05/19 25 [id number] Ambulatory Building:[facility] 04/02/2024/04/02/20 24 [id number] Ambulatory Building:[facility] 12/05/2023/12/05/19 24 [id number] Ambulatory Building:[facility] 11/10/2023/11/11/19 24 [id number] Emergency Building:[facility] _EDRoom: 7Bed: 07 [facility] PAYERS ENCOUNTER GUARANTOR PAYER SUBSCRIBER SOURCE 10/20/2024 CURTIS Archibald HIB: [place] [address]Hrl: (HP) [facility] MEDICAIDPolicy Number: [id number] Date:2021-10-20 CIROSEVERIANO Archibald HIB: [id number] [place] [address] [facility] 10/13/2024 SPARKLEKINZA Archibald HIB: [place] [address]Mav: (HP) Primary Insurance:[facility] MEDICAIDPolicy Number: [id number] Date:2021-10-20 SPARKLEKINZA Archibald HIB: [id number] [place] [address] [facility] 10/06/2024 CURTIS MOREIRADOB: [place] [address]Bsq: (HP) Primary Insurance:[facility] MEDICAIDPolicy Number: [id number] Date:2021-10-20 CURTIS MOREIRADOB: [id number] [place] [address] [facility] 09/30/2024 CURTIS MOREIRADOB: [place] [address]Nvg: (HP) Primary Insurance:[facility] MEDICAIDPolicy Number: [id number] Date:2021-10-20 CURTIS MOREIRADOB: [id number] [place] [address] [facility] 09/16/2024 CURTIS MOREIRADOB: [place] [address]Ntz: (HP) Primary Insurance:[facility] MEDICAIDPolicy Number: [id number] Date:2021-10-20 CURTIS MOREIRADOB: [id number] [place] [address] [facility] 09/16/2024 CURTIS MOREIRADOB: [place] [address]Ndr: (HP) Primary Insurance:[facility] MEDICAIDPolicy Number: [id number] Date:2021-10-20 CURTIS MOREIRADOB: [id number] [place] [address] [facility] 08/25/2024 CURTIS MOREIRADOB: [place] [address]Wrt: (HP) Primary Insurance:[facility] MEDICAIDPolicy Number: [id number] Date:2021-10-20 CURTIS MOREIRADOB: [id number] [place] [address] [facility] 08/19/2024 CURTIS MOREIRADOB: [place] [address]Cue: (HP) Primary Insurance:[facility] MEDICAIDPolicy Number: [id number] Date:2021-10-20 CURTIS MOREIRADOB: [id number] [place] [address] [facility] 08/11/2024 CURTIS MOREIRADOB: [place] [address]Kbm: (HP) [facility] Insurance:[facility] MEDICAIDPolicy Number: [id number] Date:2021-10-20 CURTIS MOREIRADOB: [id number] [place] [address] [facility] 07/14/2024 CURTIS MOREIRADOB: [place] [address]Ikm: (HP) [facility] Insurance:[facility] MEDICAIDPolicy Number: [id number] Date:2021-10-20 CURTIS MOREIRADOB: [id number] [place] [address] [facility] 07/09/2024 CURTIS MOREIRADOB: [place] [address]Rkf: (HP) Primary Insurance:[place] MEDICAIDPolicy Number: [id number] Date:2019-08-21 CURTIS MOREIRADOB: [id number] [place], [place] [address]Efp: (WP) [facility] 06/23/2024 CURTIS MOREIRADOB: [place] [address]Lxi: (HP) [facility] Insurance:[facility] MEDICAIDPolicy Number: [id number] Date:2021-10-20 CURTIS MOREIRADOB: [id number] [place] [address] [facility] 06/03/2024 CURTIS MOREIRADOB: [place] [address]Bpg: (HP) [facility] Insurance:[facility] MEDICAIDPolicy Number: [id number] Date:2021-10-20 CURTIS MOREIRADOB: [id number] [place] [address] [facility] EPIC 2024 CURTIS MOREIRADOB: [facility] [place] [address]Hdo: (HP) [facility] Insurance:[facility] MEDICAIDPolicy Number: [id number] Date:2021-10-20 CURTIS MOREIRADOB: [id number] [place] [address] [facility] 04/02/2024 CURTIS MOREIRADOB: [facility] [place] [address]Jvd: (HP) [facility] Insurance:[facility] MEDICAIDPolicy Number: [id number] Date:2021-10-20 CURTIS MOREIRADOB: [id number] [place] [address] [facility] 12/05/2023 CURTIS MOREIRADOB: [place] [address]Wgl: (HP) [facility] Insurance:[facility] MEDICAIDPolicy Number: [id number] Date:2021-10-20 CURTIS MOREIRADOB: [id number] [place] [address] [facility] 11/10/2023 CURTIS BETHEA: [place], [place] [address]Qtw: () Primary Insurance:[place] MEDICAIDPolicy Number: [id number] Date:2019-08-21 CURTIS BETHEA: [id number] [place], [place] [address]Xzk: (HP) () [facility]
[2024-10-27] VITALS (25 sets, daily range): BP systolic 110–142; BP diastolic 59–88; PULSE 75–114; TEMP 36.7–37
[2024-10-27 05:29] LABS: Hematocrit 35.2 % (36.0-48.0); Hemoglobin 11.5 g/dL (12.0-16.0); Mean Corpuscular HGB Conc 32.7 g/dL (29.9-35.2); Mean Corpuscular Hemoglobin 26.4 pg (26.7-34.0); Mean Corpuscular Volume 80.9 fL (81.0-99.0); Platelet Count 242 10^3/uL (150-450); Red Blood Count 4.35 10^6/uL (4.20-5.40); White Blood Count 16.1 10^3/uL (4.0-11.0)
[2024-10-27 05:39] LABS: Cannabinoid Screen Urine NEGATIVE (NEGATIVE); Methamphetamines Screen Urine NEGATIVE (NEGATIVE); Tricyclic Antidepressant Urine NEGATIVE (NEGATIVE)
[2024-10-27] MEDS: 0.9 % SODIUM CHLORIDE 1,000 ML 125 ML IV (05:47)
[2024-10-27] MEDS: CEFAZOLIN SODIUM/DEXTROSE,ISO 2 GM/50 ML PIGGYBACK IV ×2 (05:49→11:31)
[2024-10-27] MEDS: OXYTOCIN/0.9 % SODIUM CHLORIDE 10 UNITS/500 ML PLAST..BAG 6 UNIT IV (06:00)
[2024-10-27] MEDS: 0.9 % SODIUM CHLORIDE 1,000 ML 1000 ML IV (12:19)
[2024-10-27] MEDS: OXYTOCIN/0.9 % SODIUM CHLORIDE 20 UNITS/1,000 ML PLAST..BAG 125 UNIT IV (12:50)
--- NOTE | 2024-10-27 12:55 | PM.OBPRCVD ---
Procedure Intrapartal events: None Induction method: per pitocin protocol Delivery augmentation: rupture of membranes and pitocin Delivery monitor: external FHT and external uterine Route of delivery: Episiotomy Description: none L&D Laceration Description: none Estimated blood loss (mL): 200 Anesthesia type: None Disposition: floor Gender: female presentation: vertex Placental delivery description: Spontaneous cord description: 3 Vessels
[2024-10-27] MEDS: GLYCERIN/WITCH HAZEL PADS 1 PAD TOPICAL (13:31)
[2024-10-27] MEDS: IBUPROFEN 600 MG TABLET PO ×2 (13:31→21:00)
[2024-10-28 00:06] VITALS: PULSE 75; TEMP 36.6
[2024-10-28] MEDS: IBUPROFEN 600 MG TABLET PO ×2 (04:44→17:10)
[2024-10-28 06:28] LABS: Hematocrit 29.4 % (36.0-48.0); Hemoglobin 9.5 g/dL (12.0-16.0); Immature Granulocytes Abs Auto 0.13 10^3/uL (0.00-0.03); Immature Granulocytes Pct Auto 0.7 % (0.0-0.5); Lymphocytes Absolute Auto 2.7 10^3/uL (1.2-3.8); Mean Corpuscular HGB Conc 32.3 g/dL (29.9-35.2); Mean Corpuscular Hemoglobin 26.7 pg (26.7-34.0); Mean Corpuscular Volume 82.6 fL (81.0-99.0); Platelet Count 206 10^3/uL (150-450); Red Blood Count 3.56 10^6/uL (4.20-5.40); White Blood Count 18.2 10^3/uL (4.0-11.0)
--- NOTE | 2024-10-28 07:51 | P.OBPN_ITS ---
OB - PN: Subj Subjective Patient comments: no complaints and pain well controlled [place] status: doing well Exam Constitutional Vital Signs, click to edit/add: Last Vital Signs Temp 97.8 F 10/28/24 00:06 Pulse 75 10/28/24 00:06 Resp 16 10/28/24 00:06 BP 115/67 10/27/24 23:54 O2 Del Method Room Air 10/28/24 00:06 Documenting provider has reviewed patient's vital signs: yes Common normals: no apparent distress Respiratory Common normals: clear to auscultation bilaterally Cardio Common normals: regular rate and regular rhythm GI Common normals: Normal to inspection, nondistended, normoactive bowel sounds present Extremity Common normals: no clubbing, cyanosis or edema and no calf tenderness Results Labs Labs: Short CBC 10/28/24 Range/Units 06:18 WBC 18.2 H (4.0-11.0) 10^3/uL Hgb 9.5 L (12.0-16.0) g/dL Hct 29.4 L (36.0-48.0) % Plt Count 206 (150-450) 10^3/uL OB - PN: A/P Plan - Vaginal Delivery day: 1 Plan: routine care, discharge home and follow up 6 weeks Time Spent with Patient Time: Total time spent is greater than 50% in coordination of care (as documented) at patient's floor/unit and/or counseling patient: Total time spent with greater than 50% in coordination of care (as documented) at patient's floor/unit and/or counseling patient: less than 15 minutes
[2024-10-28 09:34] VITALS: BP 131/78; PULSE 87; TEMP 36.7
[2024-10-28] MEDS: DOCUSATE SODIUM 100 MG CAPSULE PO ×2 (09:46→17:09)
[2024-10-28 17:05] VITALS: BP 124/82; PULSE 90; TEMP 36.6
== END 2024-10-28 17:25 | disposition home or self-care (01) | DRG 560 ==
PROVIDERS: Admitting Provider Obstetrics & Gynecology; Visit Provider Obstetrics & Gynecology
DX: O99.824 Streptococcus B carrier state complicating childbirth (principal); Z3A.39 39 weeks gestation of pregnancy; Z37.0 Single live birth
CPT/HCPCS: 36415; 80307; 85025; 85027; 86850; 86900; 86901; J0690; J2300

== ENCOUNTER 2024-11-02 14:35 | Outpatient (OUT) | payer OTHER, SELFPAY ==
--- OUTSIDE RECORDS SUMMARY | 2024-10-20 13:30 | XMS_ITS | Encounter Summary ---
Author Organization [facility] Address [address] [facility] [place] [address] Care Team Providers Care Stone Circular Sawyer Name Role Phone Shaikh ESA Young Primary Care Provider [phone] Loreto Khan Unavailable Reason for Visit * Reason Comments Routine Visit Encounter Details Date Type Department Care Team (Late st Contact Info) Description 10/20/2024 1:30 PM EDT Routine [facility] [address] [place] [address] Loreto Khan PA [address] [place], [facility] Third trimester ([facility]); 38 weeks gestation of ([facility]) Social History Tobacco Use Types Packs/Day Years Used Date Smoking Tobacco: Never Alcohol Use Standard Drinks/Week Comments Never 0 (1 standard drink = 0.6 oz pure alcohol) Caffeine intake: 1-2 cups per day Comments Yes Sex and Gender Information Value Date Recorded Sex Assigned at Not on file Legal Sex Female 7:47 PM EDT Gender Identity Not on file Sexual Orientation Not on file documented as of this encounter Last Filed Vital Signs Vital Sign Reading Time Taken Comments Blood Pressure 120/74 10/20/2024 1:43 PM EDT Pulse - - Temperature - - Respiratory Rate - - Oxygen Saturation - - Inhaled Oxygen Concentration - - Weight 94.7 kg (208 lb 12.8 oz) 10/20/2024 1:43 PM EDT Height - - Body Mass Index 34.75 05/03/2022 12:00 PM EST documented in this encounter Progress Notes * GUILLERMO No - 10/20/2024 1:30 PM EDT Reason for Appointment: Patient ID: Casi Martínez is a 24 y.o. female who presents for Routine Visit Patient presents today for Return OB appointment. MEDICATIONS Current Outpatient Medications Medication Instructions MV-Min-Fe Fum-FA-DHA ( 1 PO) 1 tablet, Daily Vit-Fe Fumarate-FA ( Vitamins) 28-0.8 MG tablet 1 tablet, Oral, Daily ALLERGIES No [...] reviewed. Vitals: Estimated body mass index is 34.75 kg/m?? as calculated from the following: Height as of 05/03/22: 5' 5 . Weight as of this encounter: 208 lb 12.8 oz. BP: 120/74 Patient's last menstrual period was 01/28/2024. ASSESSMENT & PLAN ICD-10-CM 1. Third trimester ([facility]) Z34.93 Urine dip 2. 38 weeks gestation of ([facility]) Z3A.38 Urine dip Return OB: Patient presents today for a routine obstetrics appointment. Patient is currently 38w0d . Patient states she is doing well but has complaints of being tired due to current . Patient has verbalizes frequent movement. labor precautions was discussed/given and patient was instructed to perform kick counts three times a day. Orders Placed This Encounter Procedures Urine dip Follow Up: Patient is to return to office in 1 week for routine OB appointment. Documented by GUILLERMO No on behalf of: GUILLERMO No documented in this encounter Plan of Treatment Not on file documented as of this encounter Procedures Procedure Name Priority Date/Time Associated Diagnosis Comments POCT URINALYSIS DIPSTICK Routine 10/20/2024 2:55 PM EDT Third trimester ([facility]) 38 weeks gestation of ([facility]) documented in this encounter Results * Urine dip (10/20/2024 2:55 PM EDT) Color, UA Yellow Clarity, UA Clear Glucose, UA Negative Negative - 2000(110) ++++ mg/dL Bilirubin, UA Negative Negative - 4(70) +++ mg/dL Ketones, UA Negative Negative - 160(16) ++++ mg/dL Spec Grav, UA 1.015 1 - 1.03 Blood, UA Negative Negative - 50 Nishant/mcL pH, UA 7.0 5 - 9 Protein, UA Negative Negative - 2000(20) ++++ mg/dL Urobilinogen, UA 1.0 0.2 - 12 mg/dL Leukocytes, UA Negative Negative - 500+++ Michael/mcL Nitrite, UA Negative Negative - Positive Urine 10/20/2024 2:55 PM EDT Loreto LI POINT OF CARE TEST ENTER/EDIT OR DERABLES Final Result documented in this encounter Visit Diagnoses Diagnosis Third trimester ([facility]) state, incidental 38 weeks gestation of ([facility]) documented in this encounter Care Teams Stone Circular Sawyer Relationship Specialty Start Date End Date Shaikh Young MD [address] [place] [address] PCP - General Internal Medicine 10/29/22 Loreto Khan PA [address] [place] [address] [place] [address] PCP - [facility] 07/22/23 documented as of this encounter
--- OUTSIDE RECORDS SUMMARY | 2024-11-02 14:38 | XMS_ITS | Encounter Summary ---
Author Organization [facility] Address [address] [place] [address] Care Team Providers Care Palletizer Operator Name Role Phone Shaikh ESA Young Primary Care Provider [phone] Loreto Khan Unavailable Encounter Details Date Type Department Care Team (Late st Contact Info) Description 10/28/2024 Clinisync Result Encounter [facility] External Department Unsolicited Rodney Bull, DO [address] [place] [address] Dr [address] [place], [place] [id number] Social History Tobacco Use Types Packs/Day Years [...] on file documented as of this encounter Plan of Treatment Not on file documented as of this encounter Procedures Procedure Name Priority Date/Time Associated Diagnosis Comments ALL CBC WITH AUTO DIFF Routine 10/28/2024 6:18 AM EDT documented in this encounter Results * (ABNORMAL) ALL CBC WITH AUTO DIFF (10/28/2024 6:18 AM EDT) [facility] WBC 18.2(H) 4.0 - 11.0 10 3/uL [facility] TBH RBC 3.56(L) 4.20 - 5.40 10 6/uL [facility] TBH HGB 9.5(L) 12.0 - 16.0 g/dL TBH TB[facility] HCT 29.4(L) 36.0 - 48.0 % [facility] MCV 82.6 81.0 - 99.0 fL TBH TBH MCH 26.7 26.7 - 34.0 pg TBH TBH MCHC 32.3 29.9 - 35.2 g/dL TBH TBH RDW 14.5 11.0 - 15.0 % TBH TBH PLT 206 150 - 450 10 3/uL TBH TBH MPV 11.1 9.5 - 13.5 fL TBH NEUTROPHILS PERCENT AUTO 76.7(H) 43.0 - 75.0 % [facility] LYMPHOCYTES PERCENT AUTO 14.7(L) 20.5 - 60.0 % [facility] MONOCYTES PERCENT AUTO 6.4 1.7 - 12.0 % [facility]H [facility]H EO % 1.0 0.9 - 7.0 % [facility] BASOPHILS PERCENT AUTO 0.5 0.2 - 2.0 % [facility] IMMATURE GRANULOCYTES PCT AUTO 0.7(H) 0.0 - 0.5 % [facility] NEUTROPHILS ABSOLUTE AUTO 14.0(H) 1.4 - 6.5 10 3/uL [facility] LYMPHOCYTES ABSOLUTE AUTO 2.7 1.2 - 3.8 10 3/uL [facility] MONOCYTES ABSOLUTE AUTO 1.2(H) 0.3 - 0.8 10 3/uL TBH TBH EO # 0.2 0.0 - 0.7 10 3/uL [facility] BASOPHILS ABSOLUTE AUTO 0.1 0.0 - 0.1 10 3/uL [facility] IMMATURE GRANULOCYTES ABS AUTO 0.13(H) 0.00 - 0.03 10 3/uL [facility] 10/28/2024 6:18 AM EDT 10/28/2024 6:25 AM EDT Narrative [facility] - 10/28/2024 6:29 AM EDT us Rodney Haywardo DO [facility] Final Result [facility] documented in this encounter Visit Diagnoses Not on filedocumented in this encounter Care Teams Palletizer Operator Relationship Specialty Start Date End Date Shaikh Young MD [address] [place] [address] PCP - General Internal Medicine 10/29/22 Loreto Khan PA [address] [place] [address] [place] [address] PCP - [facility] 07/22/23 documented as of this encounter
--- OUTSIDE RECORDS SUMMARY | 2024-11-02 14:38 | XMS_ITS | Encounter Summary ---
Author Organization [facility] Address [address] [facility] [place] [address] Care Team Providers Care Visual Education Teacher Name Role Phone Shaikh ESA Young Primary Care Provider [phone] Lroeto Khan Unavailable Encounter Details Date Type Department Care Team (Late st Contact Info) Description 10/20/2024 Bamboo flowsheet [facility] BCP OB [address] [facility] [address] Loreto Khan PA [address] [facility] [place] [address] Social History Tobacco Use Types Packs/Day Years [...] on file documented as of this encounter Visit Diagnoses Not on filedocumented in this encounter Care Teams Visual Education Teacher Relationship Specialty Start Date End Date Shaikh Young MD [address] [place] [address] PCP - General Internal Medicine 10/29/22 Loreto Khan PA [address] [place] [address] [facility] - [facility] 07/22/23 documented as of this encounter
--- OUTSIDE RECORDS SUMMARY | 2024-11-02 14:38 | XMS_ITS | Encounter Summary ---
Author Organization [facility] Address [address] [facility] [place] [address] Care Team Providers Care Machine Tool Technology Instructor Name Role Phone Shaikh ESA Young Primary Care Provider [phone] Loreto Khan Unavailable Encounter Details Date Type Department Care Team (Late st Contact Info) Description 04/17/2024 Abstract [facility] BCP OB [address] [place] [address] Lori Aparicio LPN Social History Tobacco Use Types Packs/Day Years [...] on filedocumented in this encounter Care Teams Machine Tool Technology Instructor Relationship Specialty Start Date End Date Shaikh Young MD [address] [place] [address] PCP - General Internal Medicine 10/29/22 Loreto Khan PA [address] [place] [address] PCP - [facility] 07/22/23 documented as of this encounter
--- OUTSIDE RECORDS SUMMARY | 2024-11-02 14:38 | XMS_ITS | Clinical Summary ---
Author Organization [employer] Address [id number] [address] [place] [address] Care Team Providers Care Pediatric Registered Nurse Name Role Phone No Pcp, No Pcp Primary Care Provider Unavailabl e Allergies No known active allergies Medications ibuprofen (MOTRIN) 800 mg tablet Take 1 tablet (800 mg total) by mouth every 8 (eight) hours as needed for pain. 30 tablet 4 Active Additional Information Patient not taking.Reported on 07/09/2024 Social History Tobacco Use Types Packs/Day Years Used Date Smoking Tobacco: Never Smokeless Tobacco: Never Alcohol Use Standard Drinks/Week Comments Yes 0 (1 standard drink = 0.6 oz pur e alcohol) Childcare Answer Date Recorded Childcare Unknown 10/01/2018 Employment Answer Date Recorded Employment Unknown 10/01/2018 Hunger Screening Answer Date Recorded Within the past 12 months we worried whether our food would run out before we got money to buy more. Never True 07/09/2024 Within the past 12 months th e food we bought just didn't last and we didn't have money to get more. Never True 07/09/2024 Purpose - Life Answer Date Recorded Purpose and direction in life Unknown Estimated Date of Delivery Comme nts Yes 11/03/2024 Sex and Gender Information Value Date Recorded Sex Assigned at Not on file Legal Sex Female 12:00 PM EDT Gender Identity Not on file Sexual Orientation Not on file Last Filed Vital Signs Vital Sign Reading Time Taken Comments Blood Pressure 112/78 07/09/2024 9:08 AM EDT Pulse 85 07/09/2024 9:08 AM EDT Temperature 36.6 C (97.8 F) 07/09/2024 9:08 AM EDT Respiratory Rate 20 07/09/2024 9:08 AM EDT Oxygen Saturation 98% 07/09/2024 9:08 AM EDT Inhaled Oxygen Concentration - - Weight 88.9 kg (196 lb) 07/09/2024 9:08 AM EDT Height 160 cm (5' 3 ) 07/09/2024 9:08 AM EDT Body Mass Index 34.72 07/09/2024 9:08 AM EDT Plan of Treatment Health Maintenance Due Date Last Done Comments Depression Screening 2014 Adult BMI Follow Up Plan 2020 Pap Smear 2023 Tobacco Screening 08/02/2024 08/03/2023 DTaP,Tdap and Td Vaccines (7 - Td or Tdap) 12/10/2024 12/10/2014, 12/11/2007, 07/14/2003, Additional history exists Influenza Vaccine 12/21/2024 Adult BMI Screening 07/09/2025 07/09/2024 Medical Devices Not on file Insurance [employer] Care Teams Pediatric Registered Nurse Relationship Specialty Start Date End Date No Pcp, [place] [address] PCP - General Family Medicine 07/09/24
--- OUTSIDE RECORDS SUMMARY | 2024-11-02 14:39 | XMS_ITS | Encounter Summary ---
Author Organization [facility] Address [address] [place] [address] Care Team Providers Care It Architecture Consultant Name Role Phone Shaikh ESA Young Primary Care Provider [phone] Loreto Khan Unavailable Encounter Details Date Type Department Care Team (Late st Contact Info) Description 10/27/2024 Clinisync Result Encounter [facility] External Department Unsolicited Rodney Bull, DO [address] [facility] [address] [place], [place] [id number] Social History Tobacco Use Types Packs/Day Years [...] Procedure Name Priority Date/Time Associated Diagnosis Comments [facility] CBC WITH PLATELET NO DIFFERENTIAL Routine 10/27/2024 5:17 AM EDT [facility] DRUG SCREEN RAPID (URINE) Routine 10/27/2024 5:00 AM EDT documented in this encounter Results * (ABNORMAL) [facility] CBC WITH PLATELET NO DIFFERENTIAL (10/27/2024 5:17 AM EDT) [facility] WBC 16.1(H) 4.0 - 11.0 10 3/uL [facility] RBC 4.35 4.20 - 5.40 10 6/uL [facility] HGB 11.5(L) 12.0 - 16.0 g/dL [facility] HCT 35.2(L) 36.0 - 48.0 % [facility] MCV 80.9(L) 81.0 - 99.0 fL [facility] MCH 26.4(L) 26.7 - 34.0 pg [facility] MCHC 32.7 29.9 - 35.2 g/dL [facility] RDW 14.6 11.0 - 15.0 % [facility] PLT 242 150 - 450 10 3/uL [facility] MPV 11.2 9.5 - 13.5 fL [facility] 10/27/2024 5:17 AM EDT 10/27/2024 5:26 AM EDT Narrative [facility] - 10/27/2024 5:30 AM EDT Rodney Bull DO [facility] Final Result [facility] TB * [facility] DRUG SCREEN RAPID (URINE) (10/27/2024 5:00 AM EDT) Pathologist [facility] CANNABINOID SCREEN URINE NEGATIVE NEGATIVE [facility] PHENCYCLIDINE SCREEN URINE NEGATIVE NEGATIVE [facility] COCAINE SCREEN URINE NEGATIVE NEGATIVE [facility] METHAMPHETAMINES SCREEN URINE NEGATIVE NEGATIVE [facility] OPIATE SCREEN URINE NEGATIVE NEGATIVE TBH AMPHETAMINE SCREEN URINE NEGATIVE NEGATIVE TBH BENZODIAZEPINES SCREEN URINE NEGATIVE NEGATIVE TBH TRICYCLIC ANTIDEPRESSANT URINE NEGATIVE NEGATIVE [facility] METHADONE SCREEN URINE NEGATIVE NEGATIVE [facility] BARBITURATES SCREEN URINE NEGATIVE NEGATIVE [facility] OXYCODONE SCREEN URINE NEGATIVE NEGATIVE [facility] BUPRENORPHINE SCREEN URINE NEGATIVE NEGATIVE [facility] Comment: DRUG CLASS TEST SYSTEM CUT-OFF CONCENTRATIONS ARE FOLLOWS: AMP (Amphetamine): 500 ng/mL BAR (Barbiturates): 200 ng/mL BZO (Benzodiazepines): 150 ng/mL BUP (Buprenorphine): 10 ng/mL BRYON (Cocaine): 150 ng/mL mAMP (Methamphetamine): 500 ng/mL MTD (Methadone): 200 ng/mL OPI (Opiates): 100 ng/mL OXY (Oxycodone): 100 ng/mL PCP (Phencyclidine): 25 ng/mL THC (Cannabinoids): 50 ng/mL TCA (Trycyclic Antidepressants): 300 ng/mL 10/27/2024 5:00 AM EDT 10/27/2024 5:26 AM EDT Narrative [facility] - 10/27/2024 5:39 AM EDT us Rodney Jorgito DO CL[facility] Final Result [facility] documented in this encounter Visit Diagnoses Not on filedocumented in this encounter Care Teams It Architecture Consultant Relationship Specialty Start Date End Date Shaikh Young MD [address] [place] [address] PCP - General Internal Medicine 10/29/22 Loreto Khan PA [address] [place] [address] [place] [address] PCP - [facility] 07/22/23 documented as of this encounter
--- OUTSIDE RECORDS SUMMARY | 2024-11-02 14:39 | XMS_ITS | Encounter Summary ---
Author Organization [facility] Address [address] [facility] [place] [address] Care Team Providers Care Scientist Electronics Name Role Phone Shaikh ESA Young Primary Care Provider [phone] Loreto Khan Unavailable Encounter Details Date Type Department Care Team (Late st Contact Info) Description 04/07/2024 Abstract [facility] B[facility] [address] [facility] [place] [address] Rodney Bull, DO [address] [facility] [place] [address] Social History Tobacco Use Types Packs/Day [...] on filedocumented in this encounter Care Teams Scientist Electronics Relationship Specialty Start Date End Date Shaikh Young MD [address] [place] [address] PCP - General Internal Medicine 10/29/22 Loreto Khan PA [address] [place] [address] [facility] - [facility] 07/22/23 documented as of this encounter
--- OUTSIDE RECORDS SUMMARY | 2024-11-02 14:39 | XMS_ITS | Encounter Summary ---
Author Organization [facility] Address [address] [facility] [place] [address] Care Team Providers Care Needle Maker Name Role Phone Shaikh ESA Young Primary Care Provider [phone] Loreto Khan Unavailable Encounter Details Date Type Department Care Team (Late st Contact Info) Description 04/07/2024 Abstract [facility] [address] [facility] [place] [address] Rodney Bull, DO [address] [facility] [place] [address] Social History Tobacco Use Types Packs/Day [...] on filedocumented in this encounter Care Teams Needle Maker Relationship Specialty Start Date End Date Shaikh Young MD [address] [place] [address] PCP - General Internal Medicine 10/29/22 Loreto Khan PA [address] [place] [address] [facility] - [facility] 07/22/23 documented as of this encounter
--- OUTSIDE RECORDS SUMMARY | 2024-11-02 14:39 | XMS_ITS | Encounter Summary ---
Author Organization [facility] Address [address] [facility] [place] [address] Care Team Providers Care Gas Fitter Apprentice Name Role Phone Shaikh ESA Young Primary Care Provider [phone] Loreto Khan Unavailable Encounter Details Date Type Department Care Team (Late st Contact Info) Description 11/21/2022 Abstract [facility] BCP OB [address] [place] [phone] Loreto Khan PA [address] [facility] [address] [place], [facility] Social History Tobacco Use Types Packs/Day Years Used Date Smoking Tobacco: Never Tobacco Cessation:Counseling Given: Not Answered Alcohol Use Standard Drinks/Week Comments Never 0 (1 standard drink = 0.6 oz pure alcohol) Caffeine intake: 1-2 cups per day Comments Unknown Sex and Gender Information Value Date Recorded Sex Assigned at Not on file Legal Sex Female 7:47 PM EDT Gender Identity Not on file Sexual Orientation Not on file documented as of this encounter Plan of Treatment Not on file documented as of this encounter Visit Diagnoses Not on filedocumented in this encounter Care Teams Gas Fitter Apprentice Relationship Specialty Start Date End Date Shaikh Young MD [address] [place] [address] PCP - General Internal Medicine 10/29/22 Loreto Khan PA [address] [place], [place] [id number] [facility] - [facility] 07/22/23 documented as of this encounter
--- OUTSIDE RECORDS SUMMARY | 2024-11-02 14:39 | XMS_ITS | Encounter Summary ---
Author Organization [facility] Address [address] [facility] [place] [address] Care Team Providers Care Wireless Architect Name Role Phone Shaikh ESA Young Primary Care Provider [phone] Loreto Khan Unavailable Encounter Details Date Type Department Care Team (Late st Contact Info) Description 12/12/2023 Orders Only [facility] OB [address] [facility] [address] Laina Ward [place] [address] [facility] [place] [address] Social History Tobacco Use Types Packs/Day Years Used Date Smoking Tobacco: Never Alcohol Use Standard Drinks/Week Comments Never 0 (1 standard drink = 0.6 oz pure alcohol) Caffeine intake: 1-2 cups per day Comments No Sex and Gender Information Value Date Recorded Sex Assigned at Not on file Legal Sex Female 7:47 PM EDT Gender Identity Not on file Sexual Orientation Not on file documented as of this encounter Plan of Treatment Not on file documented as of this encounter Procedures Procedure Name Priority Date/Time Associated Diagnosis Comments PAP SMEAR Routine 12/05/2023 12:00 AM EDT documented in this encounter Results * Pap Smear (12/05/2023 12:00 AM EDT) Swab Cervical swab / Unknown Loreto LI LAB CYTOLOGY ORDERABLES Final Re sult EXTERNAL LAB documented in this encounter Visit Diagnoses Not on filedocumented in this encounter Care Teams Wireless Architect Relationship Specialty Start Date End Date Shaikh Young MD [address] [place] [address] PCP - General Internal Medicine 10/29/22 Loreto Khan PA [address] [place] [address] [place] [address] [facility] - [facility] 07/22/23 documented as of this encounter
--- OUTSIDE RECORDS SUMMARY | 2024-11-02 14:39 | XMS_ITS | Encounter Summary ---
Author Organization [facility] Address [address] [place] [address] Care Team Providers Care Fudge Candy Maker Name Role Phone Shaikh ESA Young Primary Care Provider [phone] Loreto Khan Unavailable Encounter Details Date Type Department Care Team (Late st Contact Info) Description 04/02/2024 Clinisync Result Encounter [facility] External Department Unsolicited Claudio Bull, DO [address] [facility] [address] [place] [id number] Social History Tobacco Use Types Packs/Day Years [...] Procedure Name Priority Date/Time Associated Diagnosis Comments US OB TRANSVAGINAL 04/02/2024 2: 53 PM EST documented in this encounter Results * US OB TRANSVAGINAL (04/02/2024 2:53 PM EST) Anatomical Region Laterality Modality Other 04/02/2024 2:53 PM EST Narrative 04/02/2024 2:56 PM EST The [address] [address] Ultrasound Report Signed Patient: CURTIS MOREIRA MR#: [id number] : 2000 Acct:[id number] Age/Sex: 23 / F ADM Date: 04/02/24 Loc: [facility] Attending Dr: Claudio Bull D.O. Ordering Physician: Claudio Bull D.O. Date of Service: 04/02/24 Procedure(s): US OB transvaginal Accession Number(s): [id number] cc: Shaikh Maribell Young; Claudio Bull D.O. The [address] [address] Patient Name: CURTIS MOREIRA MRN: [id number] date: 2000 Sex: F Assigned Patient Location: [facility] Current Patient Location: [facility] Accession/Order Number: [id number] Exam Date: 04/02/2024 13:35 Report Date: 04/02/2024 14:53 At the request of: CLAUDIO BULL Procedure: US OB transvaginal EXAMINATION: US OB transvaginal HISTORY: MISSED MENSES COMPARISON: No relevant comparison available. FINDINGS: Transvaginal images Shankar intrauterine gestation Gestational sac: 3.78 cm, 9 weeks 0 days CRL: 2.60 cm, 9 weeks 3 days Yolk sac: 4.3 mm Heart rate: 170 beats minute Cervix: Closed, 4.6 cm The uterus is normal, anteverted, anteflexed The right ovary is not visualized The left ovary is normal Clinical age: 9 weeks 2 days Clinical JOSE ANGEL: 11/03/2024 Ultrasound age: 9 weeks 3 days Ultrasound JOSE ANGEL: 11/02/2024 US/US OB transvaginal IMPRESSION: Viable shankar intrauterine gestation measuring 9 weeks 3 days Electronically authenticated by: SYDNEE OBREGON Date: 04/02/2024 14:53 Dictated By: Sydnee Obregon M.D. Signed By: 04/02/24 1456 DD/ 145 TD/TT: Mannequin Coloring Artist: Procedure Note Radiology, Radiologist, MD - 04/02/2024 [place] [address] Ultrasound Report Signed Patient: CURTIS MOREIRA MMR#: [id number] : 2000Acct:[id number] Age/Sex: 23 / FADM Date: 04/02/24 Loc: [facility] Attending Dr: Claudio Bull D.O. Ordering Physician: Claudio Bull D.O. Date of Service: 04/02/24 Procedure(s): US OB transvaginal Accession Number(s): [id number] cc: Shaikh Maribell Young; Claudio Bull D.O. [place] [address] Patient Name: CURTIS MOREIRA MRN: [id number] date: 2000 Sex: F Assigned Patient Location: [facility] Current Patient Location: [facility] Accession/Order Number: [id number] Exam Date: 04/02/2024 13:35 Report Date: 04/02/2024 14:53 At the request of: CLAUDIO BULL Procedure: US OB transvaginal EXAMINATION: US OB transvaginal HISTORY: MISSED MENSES COMPARISON: No relevant comparison available. FINDINGS: Transvaginal images Shankar intrauterine gestation Gestational sac: 3.78 cm, 9 weeks 0 days CRL: 2.60 cm, 9 weeks 3 days Yolk sac: 4.3 mm Heart rate: 170 beats minute Cervix: Closed, 4.6 cm The uterus is normal, anteverted, anteflexed The right ovary is not visualized The left ovary is normal Clinical age: 9 weeks 2 days Clinical JOSE ANGEL: 11/03/2024 Ultrasound age: 9 weeks 3 days Ultrasound JOSE ANGEL: 11/02/2024 US/US OB transvaginal IMPRESSION: Viable shankar intrauterine gestation measuring 9 weeks 3 days Electronically authenticated by: SYDNEE OBREGON Date: 04/02/2024 14:53 Dictated By: Sydnee Obregon M.D. Signed By:04/02/24 1456 DD/ 52 TD/TT: Mannequin Coloring Artist: us Claudio Bull DO [facility] Final Result documented in this encounter Visit Diagnoses Not on filedocumented in this encounter Care Teams Fudge Candy Maker Relationship Specialty Start Date End Date Shaikh Young MD [address] [place] [address] PCP - General Internal Medicine 10/29/22 Loreto Khan PA [address] [place] [address] [place] [address] PCP - [facility] 07/22/23 documented as of this encounter
[2024-11-02 17:10] VITALS: BP 132/72; PULSE 70; TEMP 36.7; O2SAT 97
--- NOTE | 2024-11-02 17:10 | PC.NURSE ---
Casi and 6 day old daughter Derrell arrive for follow up appointment. Mom states is doing well, no concerns for self or for baby. Casi with VSS and assessment WNL. States third time is easier . Baby is with VSS and assessment WNL. Baby nurses and takes pumped milk depending on mom's desire to place to breast. States has nursed and pumped/bottle fed her other 2 children and worked well for her. Does not like to feel completely dependent on nursing, likes other to have chance to feed the baby. Pumping every 3 hours obtains 2 oz per breast. Only pumping if baby not going to breast. Baby taking up to 2 oz via bottle when not at breast. Mom states this works well for her and no desire to change with 3rd baby. Support offered for her choices. Latches baby well while here and nursed 15 minutes from 1 breast. Sleeping and burped well. noted to have large wet and large yellow seedy stool during the visit. Mom aware of [facility] group and to call for concens. to see PCP on 11/04/2024. Mom and baby leave for home, no concerns voiced.
== END 2024-11-02 17:15 | disposition home or self-care (01) ==
LOC: FBCO 14:37
PROVIDERS: Visit Provider Obstetrics & Gynecology
DX: Z39.1 Encounter for care and examination of lactating mother (principal)